=== PATIENT | male | born 1975 | race Caucasian/White ===

== ENCOUNTER 2016-07-30 00:06 | Emergency (ER) | payer OTHER ==
[~2016-07-30] VITALS: Ht 188 cm; Wt 118.4 kg
[~2016-07-30 00:06] MED LIST: LEVO100T PO; LEVO200T PO; MULT-506 PO
[2016-07-30 00:12] VITALS: TEMP 37.4; Ht 188 cm; Wt 118.4 kg
[2016-07-30] MEDS ORDERED: ONDANSETRON INJ 2 MG/ML 2 ML VIAL IV STA (00:23)
[2016-07-30] MEDS ORDERED: SODIUM CHLORIDE 0.9% 1000ML 1,000 ML IV STA ×2 (00:23→01:50)
[2016-07-30] MEDS ORDERED: HYDROCODONE/HOMATROPINE SYRUP 5MG/1.5MG 5ML UDP PO STA (00:23)
[2016-07-30] MEDS ORDERED: ACETAMINOPHEN 500 MG TAB PO STA (00:23)
[2016-07-30] MEDS ORDERED: DiphenhydrAMINE HCL 50 MG/ML VIAL IV STA (00:23)
[2016-07-30] MEDS ORDERED: KETOROLAC TROMETHAMINE 30 MG/ML VIAL IV STA (00:23)
--- NOTE | 2016-07-30 00:26 | EMERGENCY ROOM VISIT NOTE ---
History Report prepared by Derek: Roseanne Asif Under the Supervision of: Dr. Roel Mishra M.D. First contact with patient: 00:18 Chief Complaint: FEVER Stated Complaint: FEVER,BODY ACHES History of Present Illness The patient is a 41 year old male who presents to the Emergency Room with complaints of persistent body aches that began a few days ago. He currently rates his discomfort as an 8/10 in severity. The patient states that his body aches have been constant and additionally associates intermittent chest pains with coughing, fever, headache, runny nose, dizziness, vomiting, diarrhea, and intermittent abdominal cramping. He states that his body aches are worst from his knees down. He denies any sore throat. The patient denies getting a flu shot this year. He states that he has tried using fito-seltzer for his symptoms , but denies taking any Tylenol or Ibuprofen. Source of History: patient Onset: few days ago Position: other (global) Symptom Intensity: 8/10 Quality: ache, other (body aches) Timing: constant, other (persistent) Associated Symptoms: + abdominal pain, + chest pain, + cough, + diarrhea, + fevers, + headache, + vomiting, No sorethroat Note: Associated Symptoms: runny nose, dizziness Review of Systems See HPI for pertinent positives & negatives. A total of 10 systems reviewed and were otherwise negative. Past Medical & Surgical Medical Problems: (1) Cervicalgia (2) Influenza B (3) Neuralgia/Neuritis Nos (4) Right knee injury (5) Unsp Gastritis & Gastroduodenitis W/O Mentn Hemorg Family History Heart disease Social History Smoking Status: Former Smoker Alcohol Use: occasionally Drug Use: none Marital Status: Housing Status: lives with family Occupation Status: employed Current/Historical Medications Scheduled Levothyroxine Sodium (Synthroid), 100 MCG PO DAILY Levothyroxine Sodium (Synthroid), 200 MCG PO DAILY Multivitamin (Multivitamin), 1 TAB PO DAILY Allergies Coded Allergies: No Known Allergies (Unverified , 03/18/16) Physical Exam Vital Signs Date Time Temp Pulse Resp B/P Pulse Ox O2 Delivery O2 Flow Rate FiO2 07/30/16 02:34 81 18 109/60 93 07/30/16 01:54 88 16 109/60 91 Room Air 07/30/16 01:04 95 Nasal Cannula 2.0 07/30/16 00:12 37.4 107 20 139/80 99 Room Air Physical Exam GENERAL: Patient is uncomfortable appearing and in mild distress. HEENT: Rhinorrhea bilaterally with nasal congestion. No acute trauma, normocephalic atraumatic, mucous membranes moist, no scleral icterus. NECK: No stridor, no adenopathy, no meningismus, trachea is midline. LUNGS: No dyspnea. Clear to auscultation and equal bilaterally. No wheeze, no rhonchi. HEART: Tachycardic rate and rhythm. No murmurs, rubs, gallops appreciated. ABDOMEN: Soft, nontender, bowel sounds positive, no masses appreciated, no peritonitis. BACK: No midline tenderness, no CVA tenderness EXTREMITIES: Normal motion all extremities, no cyanosis, no edema. NEUROLOGIC: Alert and oriented, no acute motor or sensory deficits, no focal weakness, cranial nerves grossly intact. SKIN: No rash, no jaundice, no diaphoresis. Medical Decision & Procedures ER Provider Diagnostic Interpretation: X ray results are stated below per my interpretation: Chest: 1 view: No infiltrate, no effusion, normal cardiac border. Laboratory Results 07/30/16 00:30 Red Blood Count 4.67, Mean Corpuscular Volume 93.1, Mean Corpuscular Hemoglobin 32.3, Mean Corpuscular Hemoglobin Concent 34.7, Mean Platelet Volume 9.9, Neutrophils (%) (Auto) 85.3, Lymphocytes (%) (Auto) 4.2, Monocytes (%) (Auto) 9.1, Eosinophils (%) (Auto) 0.4, Basophils (%) (Auto) 0.4, Neutrophils # (Auto) 6.83, Lymphocytes # (Auto) 0.34, Monocytes # (Auto) 0.73, Eosinophils # (Auto) 0.03, Basophils # (Auto) 0.03 07/30/16 00:30 Test 07/30/16 00:25 07/30/16 00:30 Influenza Type A Antigen Neg for Influ A (NEG) Influenza Type B Antigen Neg for Influ B (NEG) White Blood Count 8.01 K/uL (4.8-10.8) Red Blood Count 4.67 M/uL (4.7-6.1) Hemoglobin 15.1 g/dL (14.0-18.0) Hematocrit 43.5 % (42-52) Mean Corpuscular Volume 93.1 fL (80-100) Mean Corpuscular Hemoglobin 32.3 pg (25-34) Mean Corpuscular Hemoglobin Concent 34.7 g/dl (32-36) Platelet Count 214 K/uL (130-400) Mean Platelet Volume 9.9 fL (7.4-10.4) Neutrophils (%) (Auto) 85.3 % Lymphocytes (%) (Auto) 4.2 % Monocytes (%) (Auto) 9.1 % Eosinophils (%) (Auto) 0.4 % Basophils (%) (Auto) 0.4 % Neutrophils # (Auto) 6.83 K/uL (1.4-6.5) Lymphocytes # (Auto) 0.34 K/uL (1.2-3.4) Monocytes # (Auto) 0.73 K/uL (0.11-0.59) Eosinophils # (Auto) 0.03 K/uL (0-0.5) Basophils # (Auto) 0.03 K/uL (0-0.2) RDW Standard Deviation 44.9 fL (36.4-46.3) RDW Coefficient of Variation 13.1 % (11.5-14.5) Immature Granulocyte % (Auto) 0.6 % Immature Granulocyte # (Auto) 0.05 K/uL (0.00-0.02) Anion Gap 10.0 mmol/L (3-11) Est Creatinine Clear Calc Drug Dose 120.9 ml/min Estimated GFR () 96.1 Estimated GFR (Non- 82.9 BUN/Creatinine Ratio 12.5 (10-20) Calcium Level 9.2 mg/dl (8.5-10.1) Total Bilirubin 0.3 mg/dl (0.2-1) Direct Bilirubin < 0.1 mg/dl (0-0.2) Aspartate Amino Transf (AST/SGOT) 22 U/L (15-37) Alanine Aminotransferase (ALT/SGPT) 27 U/L (12-78) Alkaline Phosphatase 86 U/L (45-117) Total Creatine Kinase 300 U/L (39-308) Creatine Kinase MB 0.7 ng/ml (0.5-3.6) Creatine Kinase MB Ratio 0.2 (0-3.0) Troponin I < 0.015 ng/ml (0-0.045) Total Protein 7.7 gm/dl (6.4-8.2) Albumin 4.3 gm/dl (3.4-5.0) Laboratory results as reviewed by me. Medications Administered Medications (Trade) Dose Ordered Sig/Gordon Route Start Time Stop Time Status Last Admin Dose Admin Sodium Chloride (Nss 1000ml) 1,000 ml @ 999 mls/hr Q1H1M STAT IV 07/30/16 00:23 07/30/16 01:23 DC 07/30/16 00:48 999 MLS/HR Ketorolac Tromethamine (Toradol Inj) 30 mg NOW STAT IV 07/30/16 00:23 07/30/16 00:25 DC 07/30/16 00:49 30 MG Ondansetron HCl (Zofran Inj) 4 mg NOW STAT IV 07/30/16 00:23 07/30/16 00:25 DC 07/30/16 00:49 4 MG Diphenhydramine HCl (Benadryl Inj) 50 mg NOW STAT IV 07/30/16 00:23 07/30/16 00:25 DC 07/30/16 00:49 50 MG Acetaminophen (Tylenol Tab) 1,000 mg NOW STAT PO 07/30/16 00:23 07/30/16 00:25 DC 07/30/16 00:49 1,000 MG Hydrocodone Bit/ Homatropine Methylb 5 ml 5 ml NOW STAT PO 07/30/16 00:23 07/30/16 00:25 DC 07/30/16 00:48 5 ML Sodium Chloride (Nss 1000ml) 1,000 ml @ 999 mls/hr Q1H1M STAT IV 07/30/16 01:50 07/30/16 02:50 DC 07/30/16 01:50 999 MLS/HR Hydrocodone Bit/ Homatropine Methylb (Hycodan Elix Homepack 5/1.5MG/ 5ML) 1 homepack UD ONCE PO 07/30/16 02:30 07/30/16 02:31 DC 07/30/16 02:32 1 HOMEPACK ECG Indication: chest pain Rate (beats per minute): 94 Rhythm: normal sinus Findings: no acute ischemic change, no ectopy ED Course 0019: The patient was evaluated in room A2. A complete history and physical exam was performed. 0023: Ordered Hycodan Syrup 5 ml PO, Tylenol Tab 1000 mg PO, Benadryl Inj 50 mg IV, Zofran Inj 4 mg IV, Toradol Inj 30 mg IV, Sodium Chloride 1000 ml @ 999 mls/ hr IV. 0146: I reevaluated the patient at this time and he is doing is feeling better, somewhat diaphoretic, and states that he feels like his fever is breaking. 0150: Ordered Sodium Chloride 1000 ml @ 999 mls/hr IV. 0224: I reevaluated the patient and he is feeling much better and requesting to go home. I discussed the exam findings with him and I discussed the treatment plan. He verbalized complete understanding and agreement. He is ready to go home. 0230: Ordered Hycodan Elix Homepack 5/1.5mg/5 ml 1 homepack PO. Medical Decision Differential: Viral, Pharyngitis, Cellulitis, Pneumonia, Influenza, Meningitis, Sepsis, Bacteremia, UTI/Pyelonephritis, Endocrine, Toxicologic, amongst other pathologies entertained. 41 yr old male with clearly URI illness likely viral as CXR clear, WBC normal and multiple viral illnesses similar in family and community. He feels vastly improved with above and is in no distress, sleeping comfortably. Mild hypoxia post benadryl/hycodan which is not surprising and his O2 trended up over an hour or so. Breathing comfortably with clear lungs bilaterally. He is in no distress, vitals improved and he feels comfortable going home. Discussed that patient is at risk of developing further illness and if worsening symptoms or other concerns, RTED for further evaluation and treatment or follow up with PCP. He and are comfortable with this plan. Impression Primary Impression: Upper respiratory infection, acute Additional Impression: Dehydration Scribe Attestation The scribe's documentation has been prepared under my direction and personally reviewed by me in its entirety. I confirm that the note above accurately reflects all work, treatment, procedures, and medical decision making performed by me. Departure Information Dispostion Home / Self-Care Referrals Primary Care Provider Forms HOME CARE DOCUMENTATION FORM, IMPORTANT VISIT INFORMATION, Work Instructions Patient Instructions A Signature Page, ED URI Viral, [facility] Additional Instructions You have received a narcotic cough medication. These medications may cause drowsiness and should not be used with other sedative medications. Do not drive , drink alcohol, perform dangerous activities, nor make important decisions after taking these medications. half-way use or inappropriate use may lead to addiction. Problem Qualifiers
[2016-07-30 00:43] LABS: BASO % 0.4 %; BASO ABS # 0.03 K/uL (0-0.2); COMPLETE YES; EOS % 0.4 %; HEMATOCRIT 43.5 % (42-52); IG% 0.6 %; LYMPH % 4.2 %; LYMPH ABS # 0.34 K/uL (1.2-3.4); MEAN CELL VOLUME 93.1 fL (80-100); MEAN CORPUSCULAR HEMOGLOBIN 32.3 pg (25-34); MEAN CORPUSCULAR HGB CONC 34.7 g/dl (32-36); MEAN PLATELET VOLUME 9.9 fL (7.4-10.4); MONO % 9.1 %; NEUT % 85.3 %; PLATELET COUNT 214 K/uL (130-400); RED BLOOD COUNT 4.67 M/uL (4.7-6.1); WHITE BLOOD COUNT 8.01 K/uL (4.8-10.8)
[2016-07-30 01:04] VITALS: O2SAT 95
[2016-07-30 01:18] LABS: ALT/SGPT 27 U/L (12-78); AST/SGOT 22 U/L (15-37); BLOOD UREA NITROGEN 14 mg/dl (7-18); BUN/CREATININE RATIO 12.5 (10-20); CALCIUM 9.2 mg/dl (8.5-10.1); CARBON DIOXIDE 25 mmol/L (21-32); CHLORIDE 103 mmol/L (98-107); GLUCOSE 129 mg/dl (70-99); POTASSIUM 3.7 mmol/L (3.5-5.1); SODIUM 138 mmol/L (136-145)
[2016-07-30 01:25] LABS: ALKALINE PHOSPHATASE 86 U/L (45-117); CKMB/CK RATIO 0.2 (0-3.0)
[2016-07-30] MEDS ORDERED: HYCODAN 60ML BOTTLE HOMEPACK PO ONE (02:30)
[2016-07-30 02:34] VITALS: BP 109/60; PULSE 81; O2SAT 93
--- NOTE | 2016-07-30 07:10 | DIAGNOSTIC IMAGING REPORT ---
CHEST ONE VIEW PORTABLE CLINICAL HISTORY: Chest pain. Cough. COMPARISON STUDY: Chest radiograph July 27, 2015. FINDINGS: No pneumothorax or pleural effusion is present. There is no evidence of pulmonary edema. Cardiomediastinal silhouette is stable. There is moderate elevation of the right hemidiaphragm. No consolidation is identified. IMPRESSION: No acute cardiopulmonary findings. Electronically signed by: Albert Schuler M.D. 07/30/2016 7:07 AM Dictated Date/Time: 07/30/2016 7:06 AM
== END 2016-07-30 02:35 | disposition home or self-care (01) ==
LOC: C.EDB 00:06 → C.EDA 02:35
DX: J06.9 Acute upper respiratory infection, unspecified (principal); E86.0 Dehydration; Z82.49 Family history of ischemic heart disease and other diseases of the circulatory system; Z87.891 Personal history of nicotine dependence

== ENCOUNTER 2018-06-24 21:31 | Inpatient (IN) ==
[~2018-06-24 21:31] MED LIST changes: -LEVO100T PO; -LEVO200T PO; -MULT-506 PO; +PATIENT'S HEIGHT AND/OR WEIGHT NEEDED STA
--- NOTE | 2018-06-24 21:43 | CT Scan Report ---
CT head/brain wo con CLINICAL HISTORY: Change in neurological status. Suspected stroke. COMPARISON STUDY: 07/16/2014 TECHNIQUE: Axial CT of the brain is performed from the vertex to the skull base. IV contrast was not administered for this examination. A dose lowering technique was utilized adhering to the principles of ALARA. CT DOSE: FINDINGS: No intra or extra-axial mass lesions are visualized. There is no CT evidence of acute cortical infarc tion. There is no evidence of midline shift. There is no acute hemorrhage. No calvarial fractures ar e visualized. There is no evidence of pathologic ventricular dilatation. There is no evidence of acute sinusitis IMPRESSION: No acute intracranial findings Electronically signed by: Omi Arana M.D. 06/24/2018 9:41 PM
[2018-06-24] MEDS ORDERED: ALTEPLASE IV STA ×2 (21:44→21:47)
[2018-06-24] MEDS ORDERED: RECOMBINANT IV STA ×2 (21:44→21:47)
[2018-06-24] MEDS ORDERED: ALTEPLASE, RECOMBINANT 81 MG in EMPTY BAG 0 ML IV STA ×2 (21:44→21:47)
[2018-06-24] MEDS ORDERED: ALTEPLASE For Stroke IV STA (21:47)
[2018-06-24] MEDS ORDERED: IOVERSOL 100ml IV PRN ×2 (21:50→21:53)
[2018-06-24 21:53] LABS: Basophils # (auto) 0.03 K/uL (0-0.2); Basophils % (auto) 0.4 %; Eosinophils # (auto) 0.17 K/uL (0-0.5); Eosinophils % (auto) 2.5 %; Hematocrit (blood only) 46.8 % (42-52); Hemoglobin 15.2 g/dL (14.0-18.0); Immature Granulocytes # (auto) 0.05 K/uL (0.00-0.02); Immature Granulocytes % (auto) 0.7 %; Lymphocytes # (auto) 2.63 K/uL (1.2-3.4); Lymphocytes % (auto) 39.4 %; Mean Corpuscular Hgb Conc 32.5 g/dL (32-36); Mean Corpuscular Volume 96.3 fL (80-100); Mean Platelet Volume 10.3 fL (7.4-10.4); Monocytes # (auto) 0.52 K/uL (0.11-0.59); Monocytes % (auto) 7.8 %; Neutrophils # (auto) 3.28 K/uL (1.4-6.5); Neutrophils % (auto) 49.2 %; Platelet Count 253 K/uL (130-400); RDW Coefficient of Variation 13.8 % (11.5-14.5); RDW Standard Deviation 49.1 fL (36.4-46.3); Red Blood Count 4.86 M/uL (4.7-6.1); White Blood Count 6.68 K/uL (4.8-10.8)
--- NOTE | 2018-06-24 22:00 | CT Scan Report ---
CT angio neck with con CLINICAL HISTORY: Left-sided weakness. Suspected stroke. COMPARISON STUDY: No previous studies for comparison. TECHNIQUE: CT angiography was performed from the aortic arch to the skull base. MIP imaging was perfo rmed. The patient was scanned in a dynamic helical fashion during intravenous administration of 90 cc of Optiray 320. A dose lowering technique was utilized adhering to the principles of ALARA. CT DOSE: 1093.36 mGy.cm Technique: CT angiogram of the carotid and vertebral arteries was obtained using intravenous contrast and 3-D reconstruction. NASCET criteria was utilized. Findings: The right carotid revealed no evidence of aneurysm and no evidence of dissection. There is no evidenc e of hemodynamic significant stenosis. The left carotid revealed no evidence of hemodynamic significant stenosis. There is no evidence of an eurysm. There is no evidence of dissection. There is no evidence of hemodynamically significant vertebral stenosis. There is no evidence of verte bral dissection. There is a nonspecific 12 mm enhancing focus within the right parotid gland. Nonemergent parotid ultr asonography is recommended in follow-up. IMPRESSION: 1. No evidence of hemodynamically significant carotid or vertebral artery stenosis. No evidence of di ssection. 2. Nonspecific 12 mm enhancing focus within the right parotid gland. Nonemergent parotid ultrasonogra phy is recommended in follow-up. Electronically signed by: Omi Arana M.D. 06/24/2018 9:57 PM
[2018-06-24 22:02] LABS: Prothrombin Time 10.1 Seconds (9.0-12.0)
[2018-06-24 22:06] LABS: iSTAT Hemoglobin 15.3 g/dl (14.0-18.0); iSTAT Ionized Calcium 1.16 mmol/l (1.12-1.32)
[2018-06-24] MEDS ORDERED: ONDANSETRON INJ 2 MG/ML 2 ML VIAL IV STA (22:06)
--- NOTE | 2018-06-24 22:06 | CT Scan Report ---
CT angio head w con CLINICAL HISTORY: Left-sided weakness. Suspected stroke. TECHNIQUE: CT angiography of the head was performed in a dynamic helical fashion during intravenous a dministration of 90 cc of Optiray 320. MIP imaging was performed. A dose lowering technique was utili zed adhering to the principles of ALARA. CT DOSE: COMPARISON STUDY: Noncontrast head CT dated 06/24/2018 FINDINGS: There are no lesion suspicious for aneurysm. There are no major intracranial branch occlusi ons. The dural venous sinuses appear patent. IMPRESSION: Normal study. Electronically signed by: Omi Arana M.D. 06/24/2018 10:04 PM
[2018-06-24 22:25] LABS: Alanine Aminotransferase 23 U/L (12-78); Albumin Level 4.3 gm/dl (3.4-5.0); Alkaline Phosphatase 100 U/L (45-117); Aspartate Aminotransferase 24 U/L (15-37); Bilirubin,Total 0.3 mg/dl (0.1-1); Blood Urea Nitrogen 15 mg/dl (7-18); Calcium 8.9 mg/dl (8.5-10.1); Carbon Dioxide 26 mmol/L (21-32); Chloride 105 mmol/L (98-107); Est GFR (Non-African American) 94.1; Glucose 104 mg/dl (70-99); Magnesium 2.2 mg/dl (1.8-2.4); Potassium 3.9 mmol/L (3.5-5.1); Sodium 139 mmol/L (136-145); Total Protein 7.9 gm/dl (6.4-8.2)
[2018-06-24 22:34] LABS: Troponin I < 0.015 ng/ml (0-0.045)
--- NOTE | 2018-06-24 22:47 | History & Physical Report ---
Date of Service June 24, 2018 Assessment & Plan (1) Acute CVA (cerebrovascular accident): Probable right MCA distribution Stroke in the young Possible hypercoagulable state Some improvement of left lower extremity weakness post TPA administration at the ER Hypothyroidism, recent outpatient TSH was noted to be elevated History PVD (venous ulcers) as per records Ongoing tobacco abuse Incidental finding of right parotid mass on CT ICU monitoring post TPA Hypercoagulable workup MRI/MRA of the brain, TTE for stroke workup Neurology consult stroke Recheck TSH Nicotine patch as needed Outpatient right parotid ultrasound for right parotid mass DVT prophylaxis Lovenox sq 24 hours after TPA administration if without bleeding Full code History of Present Illness Chief Complaint: Stroke Primary Care Provider: Dr. Nobles History obtained from patient, family, and records. Medical history significant for PVD (hx venous ulcers), hypothyroidism, ongoing tobacco abuse. Patient had just arrived home from hunting when he noted left-sided weakness, dysarthria, and left-sided facial weakness. He called out to a friend who was outside his house. Patient denies chest pain, SOB. No previous episodes in the past. Stroke alert called upon arrival at the ER. IV TPA administered at the ER. Some improvement noted in left lower extremity weakness. 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 Left ACL tear Right wrist fracture Plate removed. Tear of medial collateral ligament of right knee Surgical History History of arthroplasty of right shoulder Social History Current Living Situation: Alone Other Information That Helps Us Care for You: No Feels Safe at Home: Yes Safety Concerns: Feels Safe At This Time Smoking Status: Former smoker Smoking End Date: 2 years ago. Hx Alcohol Use: Yes Alcohol type: beer Alcohol Intake Frequency: a few times a month Hx Substance Use: No Beliefs That Will Affect Care: None Preferred Language: Macedonian Communication Ability: Effective Pipe Roller Required: No Review of Systems As per HPI, all 10 systems reviewed, all other ROS negative Physical Exam 2 Vital Signs (Past 24 Hours): Last Vital Signs Pulse 75 06/24/18 22:31 Resp 16 06/24/18 22:31 BP 129/78 06/24/18 22:31 Pulse Ox 97 06/24/18 22:31 Physical Exam: GENERAL: Slightly anxious , no respiratory distress, obese, dysarthric SKIN: Normal color, warm HEENT: [place] palpebral conjunctivae, no ptosis, facial droop left, dry buccal mucosa NECK : Supple, no tenderness CHEST : CTA, no tenderness HEART : RRR, no obvious murmurs ABDOMEN: Some distention, nontender EXTREMITIES : No LE swelling/tenderness, abrasion noted on some toes of the left foot NEUROLOGIC : Coherent, dysarthric, left facial droop, hemiparesis left Results & Data Laboratory Results Laboratory Results WBC 6.68 K/uL (4.8-10.8) 06/24/18 21:05 RBC 4.86 M/uL (4.7-6.1) 06/24/18 21:05 Hgb 15.2 g/dL (14.0-18.0) 06/24/18 21:05 POC Hgb 15.3 g/dl (14.0-18.0) 06/24/18 21:53 Hct 46.8 % (42-52) 06/24/18 21:05 POC Hct 45 % (42-52) 06/24/18 21:53 MCV 96.3 fL (80-100) 06/24/18 21:05 MCH 31.3 pg (25-34) 06/24/18 21:05 MCHC 32.5 g/dL (32-36) 06/24/18 21:05 RDW Std Deviation 49.1 fL (36.4-46.3) H 06/24/18 21:05 RDW Coeff of Gabriel 13.8 % (11.5-14.5) 06/24/18 21:05 Plt Count 253 K/uL (130-400) 06/24/18 21:05 MPV 10.3 fL (7.4-10.4) 06/24/18 21:05 Immature Gran % (Auto) 0.7 % 06/24/18 21:05 Neut % (Auto) 49.2 % 06/24/18 21:05 Lymph % (Auto) 39.4 % 06/24/18 21:05 [place] % (Auto) 7.8 % 06/24/18 21:05 Eos % (Auto) 2.5 % 06/24/18 21:05 Baso % (Auto) 0.4 % 06/24/18 21:05 Immature Gran # (Auto) 0.05 K/uL (0.00-0.02) H 06/24/18 21:05 Neut # (Auto) 3.28 K/uL (1.4-6.5) 06/24/18 21:05 Lymph # (Auto) 2.63 K/uL (1.2-3.4) 06/24/18 21:05 [place] # (Auto) 0.52 K/uL (0.11-0.59) 06/24/18 21:05 Eos # (Auto) 0.17 K/uL (0-0.5) 06/24/18 21:05 Baso # (Auto) 0.03 K/uL (0-0.2) 06/24/18 21:05 PT 10.1 Seconds (9.0-12.0) 06/24/18 21:05 INR 1.0 (0.9-1.1) 06/24/18 21:05 APTT 27.0 Seconds (21.0-31.0) 06/24/18 21:05 PTT Ratio 1.0 06/24/18 21:05 POC Sodium 140 mEq/L (135-144) 06/24/18 21:53 Sodium 139 mmol/L (136-145) 06/24/18 21:05 POC Potassium 4.4 mEq/L (3.3-5.0) 06/24/18 21:53 Potassium 3.9 mmol/L (3.5-5.1) 06/24/18 21:05 POC Chloride 102 mEq/L (101-112) 06/24/18 21:53 Chloride 105 mmol/L (98-107) 06/24/18 21:05 Carbon Dioxide 26 mmol/L (21-32) 06/24/18 21:05 POC Total CO2 25 mEq/l (24-31) 06/24/18 21:53 Anion Gap 8.0 (3-11) 06/24/18 21:05 POC Anion Gap 18.0 mmol/L (16-25) 06/24/18 21:53 POC BUN 15 mg/dl (7-18) 06/24/18 21:53 BUN 15 mg/dl (7-18) 06/24/18 21:05 Creatinine 0.98 mg/dl (0.6-1.4) 06/24/18 21:05 POC Creatinine 0.8 mg/dl (0.6-1.3) 06/24/18 21:53 Est Cr Clr Drug Dosing 134.0 ml/min 06/24/18 21:05 Est GFR ( Amer) 109.0 06/24/18 21:05 Est GFR (Non-Af Amer) 94.1 06/24/18 21:05 BUN/Creatinine Ratio 15.0 (10-20) 06/24/18 21:05 Glucose 104 mg/dl (70-99) H 06/24/18 21:05 POC Glucose 87 (70-99) 06/24/18 21:49 POC Glucose (other) 95 mg/dl (70-99) 06/24/18 21:53 Calcium 8.9 mg/dl (8.5-10.1) 06/24/18 21:05 POC Ioniz Calcium [place] 1.16 mmol/l (1.12-1.32) 06/24/18 21:53 Magnesium 2.2 mg/dl (1.8-2.4) 06/24/18 21:05 Total Bilirubin 0.3 mg/dl (0.1-1) 06/24/18 21:05 Direct Bilirubin mg/dl (0-0.2) 06/24/18 21:05 AST 24 U/L (15-37) 06/24/18 21:05 ALT 23 U/L (12-78) 06/24/18 21:05 Alkaline Phosphatase 100 U/L (45-117) 06/24/18 21:05 Troponin I < 0.015 ng/ml (0-0.045) 06/24/18 21:05 Total Protein 7.9 gm/dl (6.4-8.2) 06/24/18 21:05 Albumin 4.3 gm/dl (3.4-5.0) 06/24/18 21:05 TSH Cancelled 12/07/18 21:05 Specimen Hemolysis 06/24/18 21:05 Blood Type Cancelled 06/24/18 21:50 Antibody Screen Cancelled 06/24/18 21:[address] head no acute pathology CT neck angiogram : 1. No evidence of hemodynamically significant carotid or vertebral artery stenosis. No evidence of dissection. 2. Nonspecific 12 mm enhancing focus within the right parotid gland. Nonemergent parotid ultrasonography is recommended in follow-up. EKG as per my interpretation rate 85, NSR, no ischemia
--- NOTE | 2018-06-24 23:41 | Emergency Department Note ---
Entered by Skylar Alcocer acting as a scribe for History of Present Illness General Chief complaint: Stroke Alert Stated complaint: STROKE ALERT Source: patient Mode of arrival: ambulatory Limitations: no limitations History of Present Illness Onset (ago): hour(s) 2 Location: head Radiation: non-radiation Pain Consistency: + constant Exacerbated By: + none Associated symptoms: + headaches The patient is a 43 year old male who presents to the Emergency Room with complaints of stroke like symptoms. He was brought to the ED via EMS. EMS states his last known well time is 1900 tonight, when the patient became flaccid on his left side and had to crawl to the phone to call for help. He does not take blood thinners and EMS denies any recent head injury or trauma. The patient states that after a shower at approximately 7 to 7:30 PM tonight he developed numbness to the left side of his body. He admits to experiencing a speech slur and weakness, reporting "I am trying to talk, but I can't." He states he felt fine earlier today. The patient denies any trouble finding words. He does complain of a feeling of "tight" pain above his right eye. He denies any prior history of migraine headaches. He denies any family history of migraines. He states that he has not been having headaches and does not have one now. He denies any head injury or fever. Home Medications Home Medications Medication Instructions Recorded Confirmed Type levothyroxine 300 mcg PO DAILY 06/24/18 06/24/18 History Allergies Allergy/AdvReac Type Severity Reaction Status Date / Time No Known Allergies Allergy Unverified 06/24/18 22:38 Past Med/Surg History Medical History Pneumonia Pharyngitis Hyperthyroidism Social History Feels Safe at Home: Yes Smoking Status: Former smoker Review of Systems See HPI for pertinent positives & negatives. and A total of 10 systems reviewed and were otherwise negative Physical Exam Vital Signs Vital Signs - 24 hr 06/24/18 21:45 06/24/18 21:46 06/24/18 21:50 Sepsis Recent Fever Within 48 Hours No Sepsis Action Taken by Nursing No Action Required Pulse Rate 83 89 85 Respiratory Rate 21 Blood Pressure 150/90 H 150/90 H 155/84 H Blood Pressure Mean 110 110 107 Pulse Oximetry 95 96 96 Oxygen Delivery Method Room Air 06/24/18 21:55 06/24/18 21:56 06/24/18 22:00 Sepsis Recent Fever Within 48 Hours Sepsis Action Taken by Nursing Pulse Rate 87 87 86 Respiratory Rate Blood Pressure 137/92 129/90 Blood Pressure Mean 107 103 Pulse Oximetry 96 96 97 Oxygen Delivery Method 06/24/18 22:05 06/24/18 22:10 06/24/18 22:11 Sepsis Recent Fever Within 48 Hours Sepsis Action Taken by Nursing Pulse Rate 77 83 84 Respiratory Rate Blood Pressure 145/85 H 134/87 Blood Pressure Mean 105 102 Pulse Oximetry 96 96 96 Oxygen Delivery Method 06/24/18 22:15 06/24/18 22:20 06/24/18 22:21 Sepsis Recent Fever Within 48 Hours Sepsis Action Taken by Nursing Pulse Rate 89 85 77 Respiratory Rate Blood Pressure 147/96 H 135/86 Blood Pressure Mean 113 102 Pulse Oximetry 95 94 95 Oxygen Delivery Method 06/24/18 22:25 06/24/18 22:26 06/24/18 22:30 Sepsis Recent Fever Within 48 Hours Sepsis Action Taken by Nursing Pulse Rate 80 80 85 Respiratory Rate 15 Blood Pressure 129/74 Blood Pressure Mean 92 Pulse Oximetry 94 95 95 Oxygen Delivery Method 06/24/18 22:31 06/24/18 22:32 06/24/18 22:35 Sepsis Recent Fever Within 48 Hours Sepsis Action Taken by Nursing Pulse Rate 75 75 78 Respiratory Rate 16 Blood Pressure 129/78 Blood Pressure Mean 95 Pulse Oximetry 97 94 95 Oxygen Delivery Method 06/24/18 22:36 06/24/18 22:40 06/24/18 22:41 Sepsis Recent Fever Within 48 Hours Sepsis Action Taken by Nursing Pulse Rate 80 87 81 Respiratory Rate Blood Pressure 128/78 138/88 Blood Pressure Mean 94 104 Pulse Oximetry 95 96 97 Oxygen Delivery Method 06/24/18 22:45 06/24/18 22:46 06/24/18 22:50 Sepsis Recent Fever Within 48 Hours Sepsis Action Taken by Nursing Pulse Rate 80 84 76 Respiratory Rate Blood Pressure 130/82 Blood Pressure Mean 98 Pulse Oximetry 95 98 95 Oxygen Delivery Method 06/24/18 22:51 06/24/18 22:55 06/24/18 22:56 Sepsis Recent Fever Within 48 Hours Sepsis Action Taken by Nursing Pulse Rate 76 79 79 Respiratory Rate Blood Pressure 127/79 126/84 Blood Pressure Mean 95 98 Pulse Oximetry 95 96 97 Oxygen Delivery Method 06/24/18 23:00 06/24/18 23:01 06/24/18 23:05 Sepsis Recent Fever Within 48 Hours Sepsis Action Taken by Nursing Pulse Rate 77 79 78 Respiratory Rate Blood Pressure 122/89 126/84 Blood Pressure Mean 100 98 Pulse Oximetry 96 96 95 Oxygen Delivery Method 06/24/18 23:10 06/24/18 23:11 06/24/18 23:12 Sepsis Recent Fever Within 48 Hours Sepsis Action Taken by Nursing Pulse Rate 80 83 75 Respiratory Rate Blood Pressure 131/90 Blood Pressure Mean 103 Pulse Oximetry 98 96 96 Oxygen Delivery Method 06/24/18 23:24 06/24/18 23:26 06/24/18 23:27 Sepsis Recent Fever Within 48 Hours Sepsis Action Taken by Nursing Pulse Rate 74 75 76 Respiratory Rate 16 13 13 Blood Pressure 123/79 123/83 Blood Pressure Mean 93 96 Pulse Oximetry 95 97 95 Oxygen Delivery Method 06/24/18 23:30 Sepsis Recent Fever Within 48 Hours Sepsis Action Taken by Nursing Pulse Rate 74 Respiratory Rate 18 Blood Pressure 123/81 Blood Pressure Mean 95 Pulse Oximetry 96 Oxygen Delivery Method Constitutional: Vital signs reviewed. Eyes: Pupils are equal round reactive to light. Conjunctiva are noninjected. ENT: Pharynx is clear without erythema or exudate. Mucous membranes are moist. Neck supple without meningeal signs. Respiratory: Clear to auscultation bilaterally. Breath sounds are equal bilaterally. Cardiovascular: Regular rate and rhythm. No rubs or gallops. GI: Soft, nondistended and nontender. Bowel sounds are present. Musculoskeletal: No peripheral edema. No lower extremity tenderness. Integumentary: No cyanosis. Neurological: The patient is awake and alert. Cranial nerves II-XII are intact except left sided facial droop, sparing the forehead. Speech is slurred. Patient is able to wiggle great toe about 1 cm. Left arm can be kept up against gravity. Motor is 5 out of 5 on the right side. Sensation appears to be intact throughout the extremities. Psychiatric: Anxious affect. Course 2118: I discussed the patients case with Dr. Rodriguez, [facility] Stroke [facility]. He believes the patient is a TPA candidate and will further evaluate the patient. 2130: Past medical records reviewed. The patient was evaluated in room B1, and a complete history and physical examination were performed. 2144: I spoke with patient and his family. I discussed his CT scan results and the risks associated with TPA with both the patient and his family. His family states he has been having headaches throughout the past 1 week. 0: I asked if the patient if he has been having headaches for the past 1 week and he denies any recent headaches. 2199: Dr. Rodriguez has evaluated the patient and recommends IV TPA. The patient has consented and it is running right now. 2210: The patient seems to be moving his leg a little better now. He still cannot move it against gravity. The Head CT was negative. I will contact the hospital medicine team. 2: I discussed the patients case with Aamir Chew [facility]ist. The patient will be further evaluated. Consultations Consultation #1: I discussed the patients case with Dr. Rodriguez, [facility] Stroke Neurology. He believes the patient is a TPA candidate and will further evaluate the patient. Time: 21:19 Consultation #2: I discussed the patients case with Aamir Chew [facility]. The patient will be further evaluated. Time: 22:12 Administered Medications Ioversol (Optiray 320 100ml) 90 ml IV ONCE PRN PRN Reason: Interaction Checking Stop: 06/28/18 21:52 Last Admin: 06/24/18 21:53 Dose: 90 ml Discontinued Medications Alteplase, Recombinant (Activase) 1 ea IV NOW STA; Protocol Stop: 06/24/18 21:48 Last Admin: 06/24/18 22:24 Dose: Not Given Alteplase, Recombinant 81 mg/ (EMPTY BAG) 81 mls @ 81 mls/hr IV ONCE STA Stop: 06/24/18 21:45 Last Infusion: 06/24/18 22:59 Dose: Admin: 06/24/18 22:01 Dose: 81 mls/hr Alteplase, Recombinant 9 mg/ (Syringe) 9 mls @ 9 mls/min IV ONCE STA Stop: 06/24/18 21:45 Last Admin: 06/24/18 21:58 Dose: 9 mls/min Miscellaneous (Patient's Height And/Or Weight Needed) 1 ea N/A NOW STA Stop: 06/24/18 21:31 Last Admin: 06/24/18 22:24 Dose: Not Given Ondansetron HCl (Zofran) 4 mg IV NOW STA Stop: 06/24/18 22:07 Last Admin: 06/24/18 22:11 Dose: 4 mg Medical Decision Making Differential Diagnosis The differential diagnoses considered include acute CVA, ICH, intracranial mass , complex migraine and aneurysm. Medical Records Attestation: I reviewed the patient's medical records. Home Medications Current Medication List: was personally reviewed by me Laboratory Data Attestation: I reviewed the patient's lab results. Result diagrams: 06/24/18 21:05 06/24/18 21:05 Lab Results 06/24/18 06/24/18 06/24/18 Range/Units 21:05 21:05 21:05 WBC 6.68 (4.8-10.8) K/uL RBC 4.86 (4.7-6.1) M/uL Hgb 15.2 (14.0-18.0) g/dL POC Hgb (14.0-18.0) g/dl Hct 46.8 (42-52) % POC Hct (42-52) % MCV 96.3 (80-100) fL MCH 31.3 (25-34) pg MCHC 32.5 (32-36) g/dL RDW Std Deviation 49.1 H (36.4-46.3) fL RDW Coeff of Gabriel 13.8 (11.5-14.5) % Plt Count 253 (130-400) K/uL MPV 10.3 (7.4-10.4) fL Immature Gran % (Auto) 0.7 % Neut % (Auto) 49.2 % Lymph % (Auto) 39.4 % [place] % (Auto) 7.8 % Eos % (Auto) 2.5 % Baso % (Auto) 0.4 % Immature Gran # (Auto) 0.05 H (0.00-0.02) K/uL Neut # (Auto) 3.28 (1.4-6.5) K/uL Lymph # (Auto) 2.63 (1.2-3.4) K/uL [place] # (Auto) 0.52 (0.11-0.59) K/uL Eos # (Auto) 0.17 (0-0.5) K/uL Baso # (Auto) 0.03 (0-0.2) K/uL PT 10.1 (9.0-12.0) Seconds INR 1.0 (0.9-1.1) APTT 27.0 (21.0-31.0) Seconds PTT Ratio 1.0 POC Sodium (135-144) mEq/L Sodium 139 (136-145) mmol/L POC Potassium (3.3-5.0) mEq/L Potassium 3.9 (3.5-5.1) mmol/L POC Chloride (101-112) mEq/L Chloride 105 (98-107) mmol/L Carbon Dioxide 26 (21-32) mmol/L POC Total CO2 (24-31) mEq/l Anion Gap 8.0 (3-11) POC Anion Gap (16-25) mmol/L POC BUN (7-18) mg/dl BUN 15 (7-18) mg/dl Creatinine 0.98 (0.6-1.4) mg/dl POC Creatinine (0.6-1.3) mg/dl Est Cr Clr Drug Dosing 134.0 ml/min Est GFR ( Amer) 109.0 Est GFR (Non-Af Amer) 94.1 BUN/Creatinine Ratio 15.0 (10-20) Glucose 104 H (70-99) mg/dl POC Glucose (70-99) POC Glucose (other) (70-99) mg/dl Calcium 8.9 (8.5-10.1) mg/dl POC Ioniz Calcium Feliciano (1.12-1.32) mmol/l Magnesium 2.2 (1.8-2.4) mg/dl Total Bilirubin 0.3 (0.1-1) mg/dl Direct Bilirubin (0-0.2) mg/dl AST 24 (15-37) U/L ALT 23 (12-78) U/L Alkaline Phosphatase 100 (45-117) U/L Troponin I < 0.015 (0-0.045) ng/ml Total Protein 7.9 (6.4-8.2) gm/dl Albumin 4.3 (3.4-5.0) gm/dl TSH 20.300 H (0.300-4.500) uIu/ml Specimen Hemolysis Blood Type Antibody Screen 06/24/18 06/24/18 06/24/18 Range/Units 21:05 21:49 21:50 WBC (4.8-10.8) K/uL RBC (4.7-6.1) M/uL Hgb (14.0-18.0) g/dL POC Hgb (14.0-18.0) g/dl Hct (42-52) % POC Hct (42-52) % MCV (80-100) fL MCH (25-34) pg MCHC (32-36) g/dL RDW Std Deviation (36.4-46.3) fL RDW Coeff of Gabriel (11.5-14.5) % Plt Count (130-400) K/uL MPV (7.4-10.4) fL Immature Gran % (Auto) % Neut % (Auto) % Lymph % (Auto) % [place] % (Auto) % Eos % (Auto) % Baso % (Auto) % Immature Gran # (Auto) (0.00-0.02) K/uL Neut # (Auto) (1.4-6.5) K/uL Lymph # (Auto) (1.2-3.4) K/uL [place] # (Auto) (0.11-0.59) K/uL Eos # (Auto) (0-0.5) K/uL Baso # (Auto) (0-0.2) K/uL PT (9.0-12.0) Seconds INR (0.9-1.1) APTT (21.0-31.0) Seconds PTT Ratio POC Sodium (135-144) mEq/L Sodium (136-145) mmol/L POC Potassium (3.3-5.0) mEq/L Potassium (3.5-5.1) mmol/L POC Chloride (101-112) mEq/L Chloride (98-107) mmol/L Carbon Dioxide (21-32) mmol/L POC Total CO2 (24-31) mEq/l Anion Gap (3-11) POC Anion Gap (16-25) mmol/L POC BUN (7-18) mg/dl BUN (7-18) mg/dl Creatinine (0.6-1.4) mg/dl POC Creatinine (0.6-1.3) mg/dl Est Cr Clr Drug Dosing ml/min Est GFR ( Amer) Est GFR (Non-Af Amer) BUN/Creatinine Ratio (10-20) Glucose (70-99) mg/dl POC Glucose 87 (70-99) POC Glucose (other) (70-99) mg/dl Calcium (8.5-10.1) mg/dl POC Ioniz Calcium Fel[place] (1.12-1.32) mmol/l Magnesium (1.8-2.4) mg/dl Total Bilirubin (0.1-1) mg/dl Direct Bilirubin (0-0.2) mg/dl AST (15-37) U/L ALT (12-78) U/L Alkaline Phosphatase (45-117) U/L Troponin I (0-0.045) ng/ml Total Protein (6.4-8.2) gm/dl Albumin (3.4-5.0) gm/dl TSH Cancelled (0.300-4.500) uIu/ml Specimen Hemolysis Blood Type Cancelled Antibody Screen Cancelled 06/24/18 Range/Units 21:53 WBC (4.8-10.8) K/uL RBC (4.7-6.1) M/uL Hgb (14.0-18.0) g/dL POC Hgb 15.3 (14.0-18.0) g/dl Hct (42-52) % POC Hct 45 (42-52) % MCV (80-100) fL MCH (25-34) pg MCHC (32-36) g/dL RDW Std Deviation (36.4-46.3) fL RDW Coeff of Gabriel (11.5-14.5) % Plt Count (130-400) K/uL MPV (7.4-10.4) fL Immature Gran % (Auto) % Neut % (Auto) % Lymph % (Auto) % [place] % (Auto) % Eos % (Auto) % Baso % (Auto) % Immature Gran # (Auto) (0.00-0.02) K/uL Neut # (Auto) (1.4-6.5) K/uL Lymph # (Auto) (1.2-3.4) K/uL [place] # (Auto) (0.11-0.59) K/uL Eos # (Auto) (0-0.5) K/uL Baso # (Auto) (0-0.2) K/uL PT (9.0-12.0) Seconds INR (0.9-1.1) APTT (21.0-31.0) Seconds PTT Ratio POC Sodium 140 (135-144) mEq/L Sodium (136-145) mmol/L POC Potassium 4.4 (3.3-5.0) mEq/L Potassium (3.5-5.1) mmol/L POC Chloride 102 (101-112) mEq/L Chloride (98-107) mmol/L Carbon Dioxide (21-32) mmol/L POC Total CO2 25 (24-31) mEq/l Anion Gap (3-11) POC Anion Gap 18.0 (16-25) mmol/L POC BUN 15 (7-18) mg/dl BUN (7-18) mg/dl Creatinine (0.6-1.4) mg/dl POC Creatinine 0.8 (0.6-1.3) mg/dl Est Cr Clr Drug Dosing ml/min Est GFR ( Amer) Est GFR (Non-Af Amer) BUN/Creatinine Ratio (10-20) Glucose (70-99) mg/dl POC Glucose (70-99) POC Glucose (other) 95 (70-99) mg/dl Calcium (8.5-10.1) mg/dl POC Ioniz Calcium Feliciano 1.16 (1.12-1.32) mmol/l Magnesium (1.8-2.4) mg/dl Total Bilirubin (0.1-1) mg/dl Direct Bilirubin (0-0.2) mg/dl AST (15-37) U/L ALT (12-78) U/L Alkaline Phosphatase (45-117) U/L Troponin I (0-0.045) ng/ml Total Protein (6.4-8.2) gm/dl Albumin (3.4-5.0) gm/dl TSH (0.300-4.500) uIu/ml Specimen Hemolysis Blood Type Antibody Screen Imaging Data Radiologist's Impression: Radiology results as stated below per my review and the radiologist's interpretation: CT angio neck with con CLINICAL HISTORY: Left-sided weakness. Suspected stroke. COMPARISON STUDY: No previous studies for comparison. TECHNIQUE: CT angiography was performed from the aortic arch to the skull base. MIP imaging was performed. The patient was scanned in a dynamic helical fashion during intravenous administration of 90 cc of Optiray 320. A dose lowering technique was utilized adhering to the principles of ALARA. CT DOSE: 1093.36 mGy.cm Technique: CT angiogram of the carotid and vertebral arteries was obtained using intravenous contrast and 3-D reconstruction. NASCET criteria was utilized. Findings: The right carotid revealed no evidence of aneurysm and no evidence of dissection. There is no evidence of hemodynamic significant stenosis. The left carotid revealed no evidence of hemodynamic significant stenosis. There is no evidence of aneurysm. There is no evidence of dissection. There is no evidence of hemodynamically significant vertebral stenosis. There is no evidence of vertebral dissection. There is a nonspecific 12 mm enhancing focus within the right parotid gland. Nonemergent parotid ultrasonography is recommended in follow-up. IMPRESSION: 1. No evidence of hemodynamically significant carotid or vertebral artery stenosis. No evidence of dissection. 2. Nonspecific 12 mm enhancing focus within the right parotid gland. Nonemergent parotid ultrasonography is recommended in follow-up. Electronically signed by: Omi Arana M.D. 06/24/2018 9:[address] angio head w con CLINICAL HISTORY: Left-sided weakness. Suspected stroke. TECHNIQUE: CT angiography of the head was performed in a dynamic helical fashion during intravenous administration of 90 cc of Optiray 320. MIP imaging was performed. A dose lowering technique was utilized adhering to the principles of ALARA. CT DOSE: COMPARISON STUDY: Noncontrast head CT dated 06/24/2018 FINDINGS: There are no lesion suspicious for aneurysm. There are no major intracranial branch occlusions. The dural venous sinuses appear patent. IMPRESSION: Normal study. Electronically signed by: Omi Arana M.D. 06/24/2018 10:[address] head/brain wo con CLINICAL HISTORY: Change in neurological status. Suspected stroke. COMPARISON STUDY: 07/16/2014 TECHNIQUE: Axial CT of the brain is performed from the vertex to the skull base. IV contrast was not administered for this examination. A dose lowering technique was utilized adhering to the principles of ALARA. CT DOSE: FINDINGS: No intra or extra-axial mass lesions are visualized. There is no CT evidence of acute cortical infarction. There is no evidence of midline shift. There is no acute hemorrhage. No calvarial fractures are visualized. There is no evidence of pathologic ventricular dilatation. There is no evidence of acute sinusitis IMPRESSION: No acute intracranial findings Electronically signed by: Omi Arana M.D. 06/24/2018 9:41 PM ECG Data Attestation: I personally reviewed and interpreted this ECG as follows: Indication: weakness Rate (beats per minute): 84 Rhythm: normal sinus Findings: + other (J-point elevation anteriorly); no PVC MDM Narrative I did perform a limited focused review of portions of the patient's old chart on the electronic medical record. The patient has had no recent pertinent visits to this hospital. The patient had a right GSV RFA for venous insufficiency by Cardiology in November of 2015, performed by Dr. Bragg. I did provide prehospital medical command for the patient. He is presenting with left-sided weakness and numbness with dysarthria. I did have them call an immediate stroke alert. I then notified the neurologist at [facility] who agreed that the patient would likely be a IV TPA candidate should his CT be negative. I did immediately evaluate the patient on arrival as noted above. I did escort him to CT scan. I did order a CT of the head and CT Angio of the head and neck. I did review the images myself as well as the radiology report as described above. There is no acute abnormality. The patient was placed on a continuous cardiac rehabilitation program director. His blood pressure was closely monitored. The [facility] neurologist did evaluate the patient over telemedicine. He agreed that the patient should receive IV TPA. I did review risks and benefits with the patient as well as his family. He did consent to IV TPA and it was initiated immediately. I did order and personally review the patient's 12-lead EKG as described above. I did order and review the patient's blood work as noted in the electronic medical record. Labs are unremarkable. He does have an elevated TSH but he is on thyroxine. On reassessment he does appear to have some very slight improvement of his leg strength. I did discuss the case with the hospitalist and case management coordinator. Impression & Plan Acute cerebrovascular accident (CVA) Critical Care Time I have personally spent greater than 71 minutes of critical care time in the direct management of this patient. This includes bedside care, interpretation of diagnostic studies, and testing, discussion with consultants, patient, and family members, and other required patient management activities. This 71 minutes is in excess of all separately billable procedures. Critical Care Time: Yes Total Critical Care Time: 71 Discharge Plan Visit Data Chief Complaint: Stroke Alert Stated Complaint: STROKE ALERT ED Provider: Glenn Simms Discharge Problem: Acute cerebrovascular accident (CVA) Patient Disposition: Being Evaluated by Hospitalist Prescriptions Prescriptions: No Action levothyroxine 300 mcg tablet 300 mcg PO DAILY RF: 0 The scribe's documentation has been prepared under my direction and personally reviewed by me in its entirety. I confirm that the note above accurately reflects all work, treatment, procedures, and medical decision making performed by me.
[2018-06-24] MEDS ORDERED: LORazepam 0.25 MG/0.5 ML VIAL IV PRN (23:57)
[2018-06-24] MEDS ORDERED: PROCHLORPERAZINE 5 MG in SYRINGE 4 ML IV PRN (23:57)
[2018-06-24] MEDS ORDERED: MoRPHine SULFATE 4 MG/ML 1 ML CARP\\VIAL IV PRN (23:57)
[2018-06-24] MEDS ORDERED: ICU PROTOCOL FOR HYPERGLYCEMIA PRN (23:57)
--- NOTE | 2018-06-25 00:08 | Critical Care Consultation ---
Date of Consultation June 25, 2018 Assessment & Plan (1) Admitted to intensive care unit: Reason Critically Ill: 43-year-old male with acute CVA and LEFT-sided deficits status post TPA administration. NEURO - * CAM ICU: NEGATIVE * Acute CVA with LEFT-sided weakness: * Improvement in strength and range of motion of the LEFT upper and lower extremities noted. * Continue with day 1 stroke protocol. * Initially received CT repeat study for complaints of headache. * Tylenol for pain. * Neurochecks per protocol. * A.m. echo for PFO evaluation. * Agree with coagulation studies, however, would wait as he is recently status post TPA administration which may certainly alter results. CARDIAC/VASCULAR - * No history of cardiac disease. * A.m. echo ordered. * EKG: Normal sinus rhythm with sinus arrhythmia at a rate of [address] or T wave changes noted. QTC 432 ms * Monitor on telemetry. RESPIRATORY - * No history of pulmonary disease. * Monitor pulse oximetry. GI/NUTRITION - * N.p.o. pending swallow study. RENAL/LYTES - * No acute electrolyte derangements at this point. - * No concerns at this time. ENDO - * No history of diabetes. * BSGs per unit protocol. ISS --> gtt per unit policy. * Hyperthyroidism status post radioiodine ablation of the thyroid: * Check T4. * Continue levothyroxine. HEME - * Stable H&H. * Monitor for bleeding status post TPA administration. ID - * No concerns for infection at this time. LINES/IV ACCESS - * PIVs x2 DVT PROPHYLAXIS - * Will hold on chemoprophylaxis secondary to TPA administration. * SCDs I have personally spent 35 minutes of critical care time in the direct management of this patient. This is a life/limb threatening event. This includes time spent evaluating patient, direct bedside care, chart review, placing orders, interpretation of diagnostic studies, discussion with consultants, patient, and family members, as well as other required patient management activities. This time is exclusive of all separately billable procedures, and teaching time and separate from and in addition to any other critical care service time. Thank you for allowing us to participate in the care of this patient. Please refer to my attending physician's documentation for any further recommendations. (2) Acute cerebrovascular accident (CVA): (3) Hyperthyroidism: (4) Left-sided weakness: Supervising Physician Co-Signing Physician Notes Seen and examined today. Case discussed on rounds. Neurological status is stable. Meds well tolerated. Will require another day in the ICU with appropriate monitoring. Acute inpatient rehab will be required. History of Present Illness Attending Physician: Jose Daniel Buck MD Patient is a 43-year-old male with a significant past medical history of hyperthyroidism status post thyroid radionuclear iodine ablation who is dependent on levothyroxine. Apparently, earlier this evening, the patient reports that he was drinking a soda and noticed that he could not move his LEFT upper extremity. He noticed weakness to the LEFT lower extremity as well. The patient did have to essentially crawl to the phone where he contacted EMS. On arrival in the emergency department, the patient was noted to have flaccid paralysis with LEFT-sided facial droop as well. He underwent emergent TPA administration at the direction of the tele-stroke program. He has shown improvement in strength and mobility of the LEFT upper extremity since arrival. Patient was noted to have a headache shortly after administration of TPA. He had a repeat CT which demonstrated no acute findings. He does report a history of occasional headaches and reports this feels similar. This is not the worst headache of his life. Patient presents and his only complaint at this point is frontal headache. He denies any current dizziness, lightheadedness, blurry vision, double vision, chest pain, palpitations, shortness of breath, nausea, or vomiting. There is no family history of blood clots or bleeding disease. There is a significant past medical history of coronary artery disease as the patient's father had a heart attack in his 40s. Patient has never had an echocardiogram and is uncertain as to any underlying PFO or other cardiac structural abnormalities. There is been no recent long distance travel. He denies any recent illicit substance use. On my assessment in the ICU, the patient is complaining of some twitching to the LEFT upper extremity. He reports increasing strength and range of motion, however. Allergies Allergy/AdvReac Type Severity Reaction Status Date / Time No Known Allergies Allergy Unverified 06/24/18 22:38 Home Medications Home Medications Medication Instructions Recorded Confirmed Type levothyroxine 300 mcg PO DAILY 06/24/18 06/24/18 History Patient History Medical History Pneumonia Pharyngitis Hyperthyroidism H/O Graves' disease Post treatment with radiation. Left ACL tear Right wrist fracture Plate removed. Tear of medial collateral ligament of right knee Surgical History History of arthroplasty of right shoulder Social History Current Living Situation: Alone Other Information That Helps Us Care for You: No Feels Safe at Home: Yes Safety Concerns: Feels Safe At This Time Smoking Status: Former smoker Smoking End Date: 2 years ago. Hx Alcohol Use: Yes Alcohol type: beer Alcohol Intake Frequency: a few times a month Hx Substance Use: No Beliefs That Will Affect Care: None Preferred Language: Maltese Communication Ability: Effective Shop Girl Required: No Review of Systems A complete 10 point review of systems was reviewed with the patient with pertinent positives and negatives as per history of present illness. All else were negative. Physical Exam 2 Vital Signs (Past 24 Hours): Last Vital Signs Pulse 74 06/24/18 23:30 Resp 18 06/24/18 23:30 BP 123/81 06/24/18 23:30 Pulse Ox 96 06/24/18 23:30 Physical Exam: VITAL SIGNS - Vital signs and nursing notes were reviewed. GENERAL - 43-year-old male appearing his stated age who is in no acute distress. Communicates well with provider and answers questions appropriately. HEAD - Normocephalic, Atraumatic. No Oconnor's Sign or Raccoon's Eyes. No depressed skull fractures palpable. EYES - PERRL with EOMI bilaterally. Sclera anicteric. Palpebral conjunctiva pink and moist with no injection noted. EARS - No deformities of external structures noted on gross examination bilaterally. NOSE - Midline and without cyanosis. No epistaxis or purulent drainage noted. Septum midline without deviation or septal hematoma noted. MOUTH/OROPHARYNX - Without perioral cyanosis. Buccal mucosa pink and moist and without leukoplakia. Tongue midline with equal elevation of palate bilaterally. No tonsillar hypertrophy, erythema, or exudates noted. Good dentition noted. NECK - Neck with FROM. Supple to palpation. No lymphadenopathy noted. No nuchal rigidity. LUNGS - Chest wall symmetric without accessory muscle use, intercostals retractions, or central cyanosis. Normal vesicular breath sounds CTA B/L. No wheezes, rales, or rhonchi appreciated. CARDIAC - RRR with S1/S2. No murmur, rubs, or gallops appreciated. ABDOMEN - Abdominal contour flat without pulsations or visible masses. BS normoactive all four quadrants. No tenderness, palpable masses, hepatosplenomegaly, or ascites noted. EXTREMITIES - No pretibial edema present. +3/5 radial and dorsalis pedis pulses palpated throughout. Occasional fasciculation of the LEFT upper extremity appreciated. +4/5 LEFT versus right upper and lower extremities appreciated. NEUROLOGIC - Cranial nerves II through XII grossly intact. Sensory intact to light touch throughout. Patellar reflexes +2/4,. Patient able to perform rapid alternating movements appropriately. Negative Pronator Drift. PSYCH - A&Ox3 and cooperates fully with examiner. Pt is very pleasant and interacts well with examiner.
[2018-06-25 00:43] LABS: T4 Free Thyroxine 1.05 ng/dl (0.8-1.6)
[2018-06-25 00:49] LABS: Bacteria Urine Automated Negative (Negative); Bilirubin Urine Negative (Negative); Cast Urine Automated 0 /lpf (0-5); Color Urine Yellow; Epithelial Cell Urine Auto 0-5 /lpf (0-5); Glucose Urine UA Negative (Negative); Ketones Urine Negative (Negative); Leukocyte Esterase Urine Negative (Negative); Nitrite Urine Negative (Negative); Protein Urine Negative (Negative); Specific Gravity Urine 1.035 (1.000-1.030); Urobilinogen Urine Negative (Negative); WBC Urine Automated 0 /hpf (0-5)
[2018-06-25 01:03] LABS: Appearance Urine Clear (Clear)
[2018-06-25 01:06] LABS: Lyme Ab IgG w/WB Rflx Negative (Negative); Lyme Ab IgM w/WB Rflx Negative (Negative)
[2018-06-25 01:23] LABS: Amphetamines+Metham, Urine Neg (Neg); Barbiturates, Urine Neg (Neg); Benzodiazepine, Urine Neg (Neg); Cocaine, Urine Neg (Neg); MDMA (Ecstacy), Urine Neg (Neg); Methadone, Urine Neg (Neg); Opiate, Urine Neg (Neg); Phencyclidine, Urine Neg (Neg)
[2018-06-25] MEDS ORDERED: PHARMACIST DISCHARGE MED REC CONSULT PRN (01:49)
[2018-06-25] MEDS: ACETAMINOPHEN 650 MG/65 ML VIAL IV PRN ×2 (01:54→18:32)
[2018-06-25] MEDS: SODIUM CHLORIDE 0.9% 1000ML 1,000 ML IV SCH ×2 (02:05→17:29)
[2018-06-25 04:55] LABS: Basophils # (auto) 0.06 K/uL (0-0.2); Eosinophils % (auto) 1.7 %; Hematocrit (blood only) 42.1 % (42-52); Hemoglobin 13.9 g/dL (14.0-18.0); Immature Granulocytes # (auto) 0.02 K/uL (0.00-0.02); Immature Granulocytes % (auto) 0.3 %; Lymphocytes % (auto) 36.7 %; Mean Corpuscular Volume 95.2 fL (80-100); Mean Platelet Volume 9.8 fL (7.4-10.4); Monocytes # (auto) 0.49 K/uL (0.11-0.59); Monocytes % (auto) 8.2 %; Neutrophils # (auto) 3.12 K/uL (1.4-6.5); Neutrophils % (auto) 52.1 %; Platelet Count 230 K/uL (130-400); RDW Coefficient of Variation 13.7 % (11.5-14.5); Red Blood Count 4.42 M/uL (4.7-6.1); White Blood Count 5.99 K/uL (4.8-10.8)
[2018-06-25 05:15] LABS: BUN Creatinine Ratio 15.4 (10-20); Blood Urea Nitrogen 12 mg/dl (7-18); Calcium 8.4 mg/dl (8.5-10.1); Carbon Dioxide 26 mmol/L (21-32); Chloride 107 mmol/L (98-107); Creatinine Clr Calc Pharmacy 162.7 ml/min; Est GFR (African American) 126.2; Est GFR (Non-African American) 108.9; Glucose 103 mg/dl (70-99); Magnesium 2.2 mg/dl (1.8-2.4); Potassium 3.9 mmol/L (3.5-5.1); Sodium 139 mmol/L (136-145)
[2018-06-25 05:20] LABS: Chol HDL Ratio 4; Cholesterol 170 mg/dl (0-200); HDL Cholesterol 40 mg/dl; LDL Cholesterol Calculated 116 mg/dl; Phosphorus 3.3 mg/dl (2.5-4.9); Triglycerides 72 mg/dl (0-150); Troponin I < 0.015 ng/ml (0-0.045); VLDL Cholesterol 14 mg/dl
--- NOTE | 2018-06-25 05:42 | CT Scan Report ---
CT head/brain wo con CT DOSE: 537.48 mGy.cm HISTORY: Mental status change braun TECHNIQUE: Multiaxial CT images of the head were performed without the use of intravenous contrast. A dose lowering technique was utilized adhering to the principles of ALARA. Comparison: 06/24/2018 Findings: The paranasal sinuses and mastoid air cells are clear. The calvarium and skull base are int act. The ventricles and sulci are within normal limits. There is no mass, hematoma, midline shift, or acute infarct. Impression: No acute intracranial abnormality. No change from the prior study. The above report was generated using voice recognition software. It may contain grammatical, syntax or spelling errors. Electronically signed by: Rubén Stone M.D. 06/25/2018 5:40 AM
[2018-06-25] MEDS ORDERED: INFLUENZA ADMINISTRATION CHARGE ONE (06:00)
[2018-06-25] MEDS ORDERED: INFLUENZA VIRUS QUAD VACCINE 0.5 ML SYR IM ONE (06:00)
[2018-06-25] MEDS ORDERED: LEVOTHYROXINE SODIUM 100 MCG TABLET PO SCH (06:30)
[2018-06-25 08:40] LABS: Estimated Average Glucose 108 mg/dl
[2018-06-25] MEDS ORDERED: IBUPROFEN 200 MG/10 ML UDC PO STA (08:46)
[2018-06-25] MEDS: LEVOTHYROXINE SODIUM IV SCH (09:19)
--- NOTE | 2018-06-25 09:37 | Ultrasound Report ---
US venous doppler LE BI HISTORY: Pain. Edema. stroke, known venous insuff, rle larger than left COMPARISON STUDY: None. FINDINGS: There is normal compressibility, flow, and augmentation within the bilateral lower extremit y deep venous systems. IMPRESSION: No DVT within the right or left lower extremity. The above report was generated using voice recognition software. It may contain grammatical, syntax or spelling errors. Electronically signed by: Rubén Stone M.D. 06/25/2018 9:35 AM
--- NOTE | 2018-06-25 10:29 | Progress Note ---
DATE: 06/25/2018 HISTORY OF PRESENT ILLNESS: A 43-year-old right-handed male referred for evaluation of stroke. He has a known history of venous insufficiency and hypothyroidism. He was in his usual state of health, went hunting yesterday, shot a dove and dragged the dove back through the [place], went home, and while showering, noticed left-sided weakness, arm and leg. Left-sided numbness and change in speech. At about the same time, he noticed a right-sided headache which was mildly throbbing. He noted no change in his vision. He was brought into the hospital and met the appropriate time frame and was given TPA. A noncontrast CT of the head was unremarkable. CTA of the head and neck showed no large vessel occlusion. Followup CT of the head was also unchanged. The patient notes he has been well. He has not had any head or neck injury, chiropractic manipulation of the neck, medical or dental procedures. He has not been recently ill, has not been on any new medications, is not using any [id number] medications. He has no history of rheumatic fever or murmur. He has no personal history of DVT, PE. As a child, he had frequent epistaxis. He does occasionally note that he gets short of breath and occasionally has palpitations. He rarely has throbbing headaches, but has never had associated neurologic symptoms with them. PAST MEDICAL HISTORY: Notable for hypothyroidism and venous insufficiency. SURGICAL HISTORY: Orthopedic surgery. SOCIAL HISTORY: Stopped smoking 2 years ago. Rarely drinks alcohol. No drug use. Lives by himself. ALLERGIES: None. HOME MEDICATIONS: Thyroid replacement. FAMILY HISTORY: Father had early coronary artery disease and at 62. Mother has thyroid disease. Uncles on the father's side also had coronary artery disease. Siblings are well. No children. There is no family history of early stroke or DVT. No family history of epistaxis. His electrocardiogram on admission is reviewed by Dr. Simms, rate 84, normal sinus, J-point elevation. OBJECTIVE: VITAL SIGNS: Temperature 36.9, 60, respirations 9-12, blood pressure 106/65, blood pressure on admission was 92/57. GENERAL: The patient does note since admission he has had random twitching of the left arm, left leg which lasted a few seconds and resolves. The face is not involved. On exam, the patient is awake and alert. His speech is dysarthric. He is oriented x3. There is no right/left confusion, naming difficulty. There is no finger anomia and no dyscalculia. There is no neglect. HEENT: Pupils are equal, round and reactive to light. The optic nerves unremarkable. Normal reese and motility. No visual extinction. There is mild flattening of left nasolabial fold. Mild dysarthric speech. Tongue is midline. Gag is reduced bilaterally. There is normal facial sensation. NEUROLOGICAL: Right-sided strength is full. Left-sided strength is about 4 proximally. The left shoulder is about 3+. The left quad is probably about 4+. Tone is normal. EXTREMITIES: There is decreased temperature in the left lower extremity. Otherwise, sensation is intact to light touch and temperature and vibration. [id number]-mt-[id number] is mildly clumsy related to weakness. Heel to salazar similarly on the left. Gait was not tested. CARDIOVASCULAR: No carotid bruits. No heart murmurs. VASCULAR: Radial pulses are palpably symmetric. I do not see any periungual vascular malformations. The right lower extremity has some venous stasis changes, it is mildly larger than the left, but not tender. Peripheral pulses are intact. I do not appreciate any embolic phenomenon in the nails. IMPRESSION: This patient appears to have a probably deep white matter infarct in the right hemisphere given the absence of neglect, visual field abnormality or abnormal graphesthesia. PLAN: 1. The patient is at baseline nonhypertensive. If his blood pressure is dropping below 100/60, I would consider using normal saline to raise his blood pressure somewhat. I do not think that reflects a disorder related to his stroke. 2. MRI of the brain. 3. Venous Doppler of the lower extremities. 4. Echo with bubble study will likely need a transesophageal echo. 5. Hypercoagulable state. 6. EEG to rule out simple partial seizures. 7. Statin use resumption. Start antiplatelet therapy after the appropriate timeframe. Appropriate OT, PT and speech therapy. We will follow.
[2018-06-25] MEDS ORDERED: SODIUM CHLORIDE 0.9% 1000ML 500 ML IV ONE (11:13)
--- NOTE | 2018-06-25 11:36 | Procedure Note ---
EEG Procedure Note Date of Service June 25, 2018 Start / End Times Start Time: 10:26 AM End Time: 10:46 AM Referring Physician Ynes Olguin History This is a 43-year-old male who presented with strokelike symptoms and twitching of the left arm and leg. EEG for further evaluation of possible seizure etiology. Home Medication List Home Medications Medication Instructions Recorded Confirmed Type levothyroxine 300 mcg PO DAILY 06/24/18 06/24/18 History Inpatient Medication List Sodium Chloride (Nss 1000ml) 1,000 mls @ 60 mls/hr IV .[id number] [facility] Stop: 07/24/18 23:56 Last Admin: 06/25/18 02:05 Dose: 60 mls/hr Acetaminophen (Ofirmev) 650 mg in 65 mls @ 200 mls/hr IV Q6H PRN PRN Reason: fever/pain while npo Stop: 07/24/18 23:56 Last Infusion: 06/25/18 02:15 Dose: 0 mls/hr Admin: 06/25/18 01:54 Dose: 200 mls/hr Levothyroxine Sodium 150 mcg/ (Syringe) 7.5 mls @ 2 mls/min IV DAILY@0900 [facility] Stop: 07/25/18 08:59 Last Admin: 06/25/18 09:19 Dose: 2 mls/min Discontinued Medications Alteplase, Recombinant (Activase) 1 ea IV NOW STA; Protocol Stop: 06/24/18 21:48 Last Admin: 06/24/18 22:24 Dose: Not Given Alteplase, Recombinant 81 mg/ (EMPTY BAG) 81 mls @ 81 mls/hr IV ONCE STA Stop: 06/24/18 21:45 Last Infusion: 06/24/18 22:59 Dose: Admin: 06/24/18 22:01 Dose: 81 mls/hr Alteplase, Recombinant 9 mg/ (Syringe) 9 mls @ 9 mls/min IV ONCE STA Stop: 06/24/18 21:45 Last Admin: 06/24/18 21:58 Dose: 9 mls/min Ioversol (Optiray 320 100ml) 90 ml IV ONCE PRN PRN Reason: Interaction Checking Stop: 06/28/18 21:52 Last Admin: 06/24/18 21:53 Dose: 90 ml Levothyroxine Sodium (Synthroid) 300 mcg PO DAILYBB JOSE J Stop: 07/25/18 06:29 Last Admin: 06/25/18 07:16 Dose: Not Given Miscellaneous (Patient's Height And/Or Weight Needed) 1 ea N/A NOW STA Stop: 06/24/18 21:31 Last Admin: 06/24/18 22:24 Dose: Not Given Ondansetron HCl (Zofran) 4 mg IV NOW STA Stop: 06/24/18 22:07 Last Admin: 06/24/18 22:11 Dose: 4 mg Description This is a 21 electrode EEG with a single channel dedicated to limited EKG. The electrodes were placed in accordance with the International 10-20 system. At the start of the recording the patient was in an awake state. Background was well organized and composed of symmetric mixed alpha and beta frequencies. There was a symmetric well-formed moderate amplitude 9-10 Hz posterior dominant rhythm that was reactive to eye opening and closure. Hyperventilation was not done due to stroke symptoms. Intermittent photic stimulation at various frequencies produced no abnormalities. Sleep was indicated by vertex waves and symmetric sleep spindles. Interpretation This is a normal awake and asleep routine EEG. There was no electrographic seizures or epileptiform discharges. Clinical Correlation A normal EEG does not rule out epilepsy if there is a strong clinical suspicion.
--- NOTE | 2018-06-25 12:05 | Magnetic Resonance Report ---
MR brain wo con HISTORY: Mental status change Stroke TECHNIQUE: Multiplanar multisequence MRI of the brain was performed without the use of contrast. COMPARISON STUDY: None. FINDINGS: There are no areas of restricted diffusion to suggest acute infarction. The midline structu res are intact. The paranasal sinuses are clear. The mastoid air cells are clear. The ventricles and sulci are within normal limits for age. There is no mass, hematoma, midline shift. The major vascular flow-voids at the skull base are well maintained. IMPRESSION: No acute intracranial abnormality. The above report was generated using voice recognition software. It may contain grammatical, syntax or spelling errors. Electronically signed by: Rubén Stone M.D. 06/25/2018 12:04 PM
--- NOTE | 2018-06-25 12:07 | Magnetic Resonance Report ---
MR angio head wo con HISTORY: Mental status change Stroke. Attention to [place] TECHNIQUE: 3-D [id number] MRA of the brain was performed without contrast. COMPARISON STUDY: None. FINDINGS: Visualized intracranial internal carotid arteries, distal vertebral arteries, and basilar a rtery are widely patent. There is no significant stenosis, occlusion, or aneurysm seen within the josi ateral ACAs, MCAs, or amphibian crewmember. IMPRESSION: No significant stenosis, occlusion, or aneurysm within the [place]. 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 The above report was generated using voice recognition software. It may contain grammatical, syntax or spelling errors. Electronically signed by: Rubén Stone M.D. 06/25/2018 12:06 PM
--- NOTE | 2018-06-25 16:46 | Hospitalist Progress Note ---
Date of Service June 25, 2018 Assessment & Plan (1) Acute CVA (cerebrovascular accident): Stroke like Symptoms S/P tPA Head Imaging studies negative for CVA Tox Screen, Lyme screen negative EEG: A normal EEG does not rule out epilepsy if there is a strong clinical suspicion. 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 Needs parotid ultrasonography as outpatient DVT Px: SCDs for now Code Status Full code Disposition: To be determined Subjective Patient is seen and examined at bedside Left sided weakness/numbness and speech improving Denies any chest pain, SOB, dizziness Offers no other complaints Imaging studies negative for CVA Physical Exam 2 Vital Signs (Past 24 Hours): Last Vital Signs Temp 36.9 C 06/25/18 12:02 Pulse 58 L 06/25/18 14:00 Resp 12 06/25/18 14:00 BP 122/76 06/25/18 14:00 Pulse Ox 95 06/25/18 14:00 Physical Exam: Physical Exam: Vitals signs as noted above General Appearance:Moderately built and nourished, no apparent distress Head: normocephalic, Atraumatic, +dysarthria, +mild facial droop Eyes: normal inspection, EOMI Neck: supple, Trachea midline Respiratory/Chest: Normal breath sounds, CTA Cardiovascular: S1, S2, No murmur Abdomen/GI:Soft, Non tender, Bowel sounds present Extremities/Musculoskelatal:normal inspection, no edema Neurologic/Psych:AAOX3, LLE 4/5, LUE 4-5/5 Skin: normal color, warm Results & Data Laboratory Results Short CBC 06/24/18 06/25/18 Range/Units 21:05 04:28 WBC 6.68 5.99 (4.8-10.8) K/uL Hgb 15.2 13.9 L (14.0-18.0) g/dL Hct 46.8 42.1 (42-52) % Plt Count 253 230 (130-400) K/uL BMP 06/24/18 06/25/18 21:05 04:28 Sodium 139 139 Potassium 3.9 3.9 Chloride 105 107 Carbon Dioxide 26 26 BUN 15 12 Creatinine 0.98 0.81 Glucose 104 H 103 H Calcium 8.9 8.4 L Cardiac Enzymes 06/24/18 06/25/18 Range/Units 21:05 04:28 Troponin I < 0.015 < 0.015 (0-0.045) ng/ml Liver Function 06/24/18 Range/Units 21:05 Total Bilirubin 0.3 (0.1-1) mg/dl Direct Bilirubin (0-0.2) mg/dl AST 24 (15-37) U/L ALT 23 (12-78) U/L Alkaline Phosphatase 100 (45-117) U/L Albumin 4.3 (3.4-5.0) gm/dl Urine 06/25/18 Range/Units Unknown Urine Color Yellow Urine Appearance Clear (Clear) Urine pH 8.0 H (4.5-7.5) Ur Specific [place] 1.035 H (1.000-1.030) Urine Protein Negative (Negative) Urine Glucose (UA) Negative (Negative) Diagnostic Findings MRI Brain: No acute intracranial abnormality. MRA Head; No significant stenosis, occlusion, or aneurysm within the [place]. 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 Venous Doppler: No DVT within the right or left lower extremity.
--- NOTE | 2018-06-25 22:28 | CT Scan Report ---
CT head/brain wo con CT DOSE: 597.36 mGycm HISTORY: Mental status change 06/24/2018 TECHNIQUE: Multiaxial CT images of the head were performed without the use of intravenous contrast. A dose lowering technique was utilized adhering to the principles of ALARA. Comparison: 06/24/2018 Findings: The paranasal sinuses and mastoid air cells are clear. The calvarium and skull base are int act. The ventricles and sulci are within normal limits. There is no mass, hematoma, midline shift, or acute infarct. Impression: No acute intracranial abnormality. The above report was generated using voice recognition software. It may contain grammatical, syntax or spelling errors. Electronically signed by: Rubén Stone M.D. 06/25/2018 10:27 PM
[2018-06-25] MEDS ORDERED: CLOPIDOGREL BISULFATE 75 MG TAB PO ONE (23:23)
[2018-06-25] MEDS ORDERED: ASPIRIN 81 MG ECTAB PO STA (23:24)
--- NOTE | 2018-06-26 05:35 | Critical Care Progress Note ---
Date of Service June 26, 2018 Assessment & Plan (1) Acute CVA (cerebrovascular accident): 43-year-old male with acute CVA and LEFT-sided deficits status post TPA administration. Now with improving facial droop and L sided weakness. Stroke likely 2/2 paradoxical embolus in the setting of PFO NEURO - [facility] ICU: NEGATIVE Acute CVA with LEFT-sided weakness: improving Head CT 24hrs post TPA: negative Initial Head CT neg Head MRI neg ECHO: EF 65-70%; interatrial shunt noted c/w PFO Lipid profile: wnl but LDL > 100 at 116 EEG normal Hypercoagulability work up: pending Hypotensive at baseline: received 500mls of NS bolus and on NS at 60mls given pt on permissive HTN protocol for CVA Pain control: Tylenol Started on aspirin 81 and clopidogrel 75mg daily Started on lipitor 20mg QAM CARDIAC/VASCULAR - Hypotensive at baseline and bradycardic to 30s during sleep Head CTA: normal Head MRA: normal Neck CTA: Normal; 12mm parotid gland lesion (needs outpt follow up US) B/l LE doppler US: no DVT ECHO: EF 65-70%; interatrial shunt noted c/w PFO Trop neg EKG: Normal sinus rhythm with sinus arrhythmia at a rate of [address] or T wave changes noted. QTC 432 ms Monitor on telemetry RESPIRATORY - Sating well on RA No history of pulmonary disease. Monitor pulse oximetry. GI/NUTRITION Incidental finding of 12mm parotid gland lesion on CT - needs outpt US Regular diet RENAL/LYTES - No acute electrolyte derangements at this point. - No concerns at this time. Urine tox screen neg ENDO - No history of diabetes. HgbA1c 5.4 BSGs per unit protocol. ISS --> gtt per unit policy. Hyperthyroidism status post radioiodine ablation of the thyroid: -TSH 20.3->repeat TSH 13.9; Free T4 0.99 (TSH likely elevated in the setting of acute illness given improved repeat TSH) -PCP changed levothyroxine dose 2 months ago Continue levothyroxine. HEME - Stable H&H. Monitor for bleeding status post TPA administration. ID - Nasal MRSA swab neg Lyme neg No concerns for infection at this time. LINES/IV ACCESS - PIVs x2 DVT PROPHYLAXIS - Will hold on chemoprophylaxis secondary to TPA administration. SCDs (2) Left-sided weakness: (3) Hypothyroidism: Supervising Physician Co-Signing Physician Notes Seen and examined AM today. Discussed case with ICU team. Will need aspirin therapy. Neurology to help determine need for additional agents. He is medically stable and ready for transfer out of the ICU. Subjective Interval Hx: improving facial droop and very much improved L sided weakness s/p TPA. No concern for cerebral hemorrhage s/p TPA. Found to have PFO which likely caused stroke. Denies: Clark/dizziness, numbness/weakness, vision changes, cp, sob, abdominal pain , n/v, dysuria Physical Exam 2 Vital Signs (Past 24 Hours): Last Vital Signs Temp 36.4 C L 06/26/18 00:00 Pulse 48 L 06/26/18 01:01 Resp 11 L 06/26/18 01:01 BP 97/59 L 06/26/18 01:01 Pulse Ox 94 06/26/18 01:01 Physical Exam: General: Pt cooperative with exam and responsive Neuro: alert and oriented x 4, following commands; CN 2-12 intact with mild L sided facial droop; 5/5 strength bilateral upper and lower extremities; sensation intact CV: RRR, no m/r/g Pulm: CTAB, equal breath sounds bilaterally Abdomen: +BS, non-distended, nontender to palpation in all quadrants Extremities: no LE edema or calf tenderness Results & Data Laboratory Results Abnormal lab results 06/26/18 Range/Units 05:14 Chloride 111 H (98-107) mmol/L BUN/Creatinine Ratio 20.5 H (10-20) Calcium 8.3 L (8.5-10.1) mg/dl TSH 13.900 H (0.300-4.500) uIu/ml Medications Administered Current Inpatient Medications Aspirin (Ecotrin) 81 mg PO QAM [facility] Stop: 07/26/18 08:59 Clopidogrel Bisulfate (Plavix) 75 mg PO QAM [facility] Stop: 07/26/18 08:59 Sodium Chloride (Nss 1000ml) 1,000 mls @ 60 mls/hr IV .[id number] [facility] Stop: 07/24/18 23:56 Last Admin: 06/25/18 17:29 Dose: 60 mls/hr Lorazepam (Ativan) 0.25 mg in 0.5 mls @ 0.5 mls/min IV Q4H PRN PRN Reason: Anxiety Stop: 07/24/18 23:56 Prochlorperazine 5 mg/ Syringe 5 mls @ 5 mls/min IV Q6H PRN PRN Reason: Nausea And Vomiting Stop: 07/24/18 23:56 Last Admin: 06/25/18 22:41 Dose: 5 mls/min Acetaminophen (Ofirmev) 650 mg in 65 mls @ 200 mls/hr IV Q6H PRN PRN Reason: fever/pain while npo Stop: 07/24/18 23:56 Last Infusion: 06/25/18 18:52 Dose: Infused Levothyroxine Sodium 150 mcg/ (Syringe) 7.5 mls @ 2 mls/min IV DAILY@0900 JOSE J Stop: 07/25/18 08:59 Last Admin: 06/25/18 09:19 Dose: 2 mls/min Miscellaneous (Icu Protocol For Hyperglycemia) 1 ea N/A PRN PRN; Protocol PRN Reason: Hyperglycemia Protocol Stop: 06/26/18 23:56 Miscellaneous Information (Pharmacist Discharge Med Rec Consult) 1 ea N/A UD PRN PRN Reason: Consult Stop: 07/25/18 01:48 Morphine Sulfate (Morphine Sulfate) 4 mg IV Q4H PRN PRN Reason: Pain Stop: 07/08/18 23:56
[2018-06-26 05:50] LABS: BUN Creatinine Ratio 20.5 (10-20); Calcium 8.3 mg/dl (8.5-10.1); Creatinine Clr Calc Pharmacy 175.7 ml/min; Est GFR (African American) 130.2; Est GFR (Non-African American) 112.4; Potassium 4.1 mmol/L (3.5-5.1)
[2018-06-26] MEDS: SODIUM CHLORIDE 0.9% 1000ML 1,000 ML IV SCH ×2 (06:11→22:36)
[2018-06-26 06:13] LABS: T4 Free Thyroxine 0.99 ng/dl (0.8-1.6)
[2018-06-26] MEDS: CLOPIDOGREL BISULFATE 75 MG TAB PO SCH (08:57)
[2018-06-26] MEDS: ASPIRIN 81 MG ECTAB PO SCH (08:57)
[2018-06-26] MEDS: LEVOTHYROXINE SODIUM IV SCH (08:57)
[2018-06-26] MEDS ORDERED: ATORVASTATIN 20 MG TAB PO SCH (09:00)
[2018-06-26] MEDS ORDERED: ASPIRIN 81 MG ECTAB PO SCH (09:00)
--- NOTE | 2018-06-26 11:22 | Hospitalist Progress Note ---
Date of Service June 26, 2018 Assessment & Plan (1) Acute CVA (cerebrovascular accident): Stroke like Symptoms S/P tPA Head Imaging studies negative for CVA Tox Screen, Lyme screen negative EEG: A normal EEG does not rule out epilepsy if there is a strong clinical suspicion. 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 Need for rehab Subjective Patient is seen and examined at bedside Left sided weakness and speech much improved Numbness resolved Denies any chest pain, SOB, dizziness Offers no other complaints Physical Exam 2 Vital Signs (Past 24 Hours): Last Vital Signs Temp 36.7 C 06/26/18 08:00 Pulse 53 L 06/26/18 09:00 Resp 10 L 06/26/18 09:00 BP 107/66 06/26/18 09:00 Pulse Ox 94 06/26/18 09:00 Physical Exam: Physical Exam: Vitals signs as noted above General Appearance:Moderately built and nourished, no apparent distress Head: normocephalic, Atraumatic, +mild dysarthria Eyes: normal inspection, EOMI Neck: supple, Trachea midline Respiratory/Chest: Normal breath sounds, CTA Cardiovascular: S1, S2, No murmur Abdomen/GI:Soft, Non tender, Bowel sounds present Extremities/Musculoskelatal:normal inspection, no edema Neurologic/Psych:AAOX3, grossly no focal deficits Skin: normal color, warm
--- NOTE | 2018-06-26 14:05 | Progress Note ---
DATE: 06/26/2018 SUBJECTIVE: I am seeing Mr. Hermosillo in followup of an episode of left hemiparesis. The patient's left hemiparesis and speech and dysfunction resolved gradually over yesterday. His neurologic deficits lasted at least 17 hours. They were accompanied by a mild right-sided throbbing headache. His MRI of the brain is unremarkable. 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 His CTA of head and neck were normal and EEG was normal. Parenthetically, the jerking on the left side that the patient reported but that was not witnessed, has resolved. His echo shows a PFO with a right to left shunt. Venous Doppler of the lower extremity was negative. PHYSICAL EXAMINATION: GENERAL: He is awake and alert. NEUROLOGIC: Speech and language are normal. There are normal visual reese, facial symmetry. Motor 5/5, no drift. Normal rapid alternating movements. IMPRESSION: Complicated migraine versus transient ischemic attack. PLAN: I would treat it as if the transient ischemic attack knowing that it may have been a complicated migraine in a patient with prior common migraine. The fact that imaging is normal at this period of time with 19 hours of neurologic deficit raises the question whether it is complicated migraine. I would continue aspirin, Plavix, discontinue Plavix after 3 weeks. Recommend statin with a goal LDL of 70 or less. The patient will need outpatient cardiac monitoring and finally, although the patient has a PFO, he has no DVT. Await the results of hypercoagulable state workup. Patient will need to see us in 2-3 weeks post-discharge.
[2018-06-27] MEDS ORDERED: LEVOTHYROXINE SODIUM 150 MCG TABLET PO SCH (06:30)
[2018-06-27] MEDS: CLOPIDOGREL BISULFATE 75 MG TAB PO SCH (07:41)
[2018-06-27] MEDS: ASPIRIN 81 MG ECTAB PO SCH (07:41)
--- NOTE | 2018-06-27 07:47 | Clinical Documentation Query ---
Dr. LIN, [facility] : CLINICAL VALIDATION QUERY* Hospitalist documentation includes "acute CVA". Neurologist documentation now states "complicated migraine versus transient ischemic attack". 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 Thank you. Please clarify and document your clinical opinion in the progress notes and discharge summary. Terms such as "probable", "suspected", "likely", "questionable", "possible", or "still to be ruled out" are acceptable. IF IN AGREEMENT, YOU MUST DOCUMENT ABOVE DIAGNOSTIC STATEMENT IN DAILY PROGRESS NOTES AND DISCHARGE SUMMARY. This document is not part of the patient' s record. Thank You, Sadiq Menon, RN [phone] Complicataed Migraine Vs TIA MTDD
[2018-06-27] MEDS ORDERED: ATORVASTATIN 40 MG TAB PO SCH (09:00)
--- NOTE | 2018-06-27 11:41 | Hospitalist Progress Note ---
Date of Service June 27, 2018 Assessment & Plan (1) Acute CVA (cerebrovascular accident): Stroke like Symptoms: Complicate Migraine Vs TIA S/P tPA Head Imaging studies negative for CVA Tox Screen, Lyme screen negative EEG: A normal EEG does not rule out epilepsy if there is a strong clinical suspicion. 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 Incidental finding of right parotid mass on CT Needs parotid ultrasonography as outpatient DVT Px: SCDs for now Code Status Full code Disposition: PT/OT Plan to discharge home today Subjective Patient is seen and examined at bedside Left sided weakness and dysarthria resolved No new complaints Denies any chest pain, SOB, dizziness Physical Exam 2 Vital Signs (Past 24 Hours): Last Vital Signs Temp 36.4 C L 06/27/18 11:24 Pulse 70 06/27/18 11:24 Resp 18 06/27/18 11:24 BP 101/65 06/27/18 11:24 Pulse Ox 95 06/27/18 11:24 Physical Exam: Physical Exam: Vitals signs as noted above General Appearance:Moderately built and nourished, no apparent distress Head: normocephalic, Atraumatic Eyes: normal inspection, EOMI Neck: supple, Trachea midline Respiratory/Chest: Normal breath sounds, CTA Cardiovascular: S1, S2, No murmur Abdomen/GI:Soft, Non tender, Bowel sounds present Extremities/Musculoskelatal:normal inspection, no edema Neurologic/Psych:AAOX3, grossly no focal deficits Skin: normal color, warm
[2018-06-27] MEDS ORDERED: STROKE PATIENT DISCHARGE STA (11:56)
--- NOTE | 2018-06-27 12:03 | Discharge Summary ---
Date of Service June 27, 2018 Admission HPI Per Admitting Provider History obtained from patient, family, and records. Medical history significant for PVD (hx venous ulcers), hypothyroidism, ongoing tobacco abuse. Patient had just arrived home from hunting when he noted left-sided weakness, dysarthria, and left-sided facial weakness. He called out to a friend who was outside his house. Patient denies chest pain, SOB. No previous episodes in the past. Stroke alert called upon arrival at the ER. IV TPA administered at the ER. Some improvement noted in left lower extremity weakness. 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 Admission Exam Per Admitting Provider GENERAL: Slightly anxious , no respiratory distress, obese, dysarthric SKIN: Normal color, warm HEENT: [place]my[place] palpebral conjunctivae, no ptosis, facial droop left, dry buccal mucosa NECK : Supple, no tenderness CHEST : CTA, no tenderness HEART : RRR, no obvious murmurs ABDOMEN: Some distention, nontender EXTREMITIES : No LE swelling/tenderness, abrasion noted on some toes of the left foot NEUROLOGIC : Coherent, dysarthric, left facial droop, hemiparesis left Principal Diagnosis Discharge Information Discharge Diagnosis Complicated Migraine Vs TIA Discharge Goals Decrease discomfort,Improve disease control, Improve function Discharge Activity Limitations Per instructions/follow-up Discharge Data Allergies Allergy/AdvReac Type Severity Reaction Status Date / Time No Known Allergies Allergy Unverified 06/24/18 22:38 Consultations 06/24/18 22:11 ED Decision to Admit Stat 06/24/18 23:57 Consult Case Management - Discharge Planning Routine Consult Case Management - Discharge Planning Routine Consult Experimental Preflight Mechanic Routine Consult Neurology Routine Procedures Performed Brain MRI: No acute intracranial abnormality. Head MRA: No significant stenosis, occlusion, or aneurysm within the [place] of [place]. 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 Venous Doppler: No DVT within the right or left lower extremity. CT head: No acute intracranial abnormality. Head CTA: Normal study. Neck CTA: 1. No evidence of hemodynamically significant carotid or vertebral artery stenosis. No evidence of dissection. 2. Nonspecific 12 mm enhancing focus within the right parotid gland. Nonemergent parotid ultrasonography is recommended in follow-up. EEG: A normal EEG does not rule out epilepsy if there is a strong clinical suspicion. ECHO:patent foramen ovale Ordered Studies 06/24/18 21:15 CT head/brain wo con Stat 06/24/18 21:16 CT angio head w con Stat CT angio neck with con Stat 06/24/18 23:14 CT head/brain wo con Stat 06/25/18 08:51 US venous doppler LE BI Urgent 06/25/18 22:00 CT head/brain wo con Routine 06/25/18 23:57 MR angio head wo con Routine MR brain wo con Routine Hospital Course (1) Acute CVA (cerebrovascular accident): Stroke like Symptoms: Complicate Migraine Vs TIA S/P tPA Head Imaging studies negative for CVA Tox Screen, Lyme screen negative EEG: A normal EEG does not rule out epilepsy if there is a strong clinical suspicion. 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 Primary Care Sports Medicine to quit smoking Incidental finding of right parotid mass on CT Needs parotid ultrasonography as outpatient DVT Px: SCDs for now Code Status Full code Disposition: PT/OT Plan to discharge home today Total Time Total Time Spent Total Time Spent (In Minutes): 36 minutes Total Time Includes: Examination of the Patient, Discharge Planning, Medication Reconciliation and Other Discharge Plan Discharge Items Patient Disposition: Home - Home Health Services Reason For Visit: CVA Discharge Diagnosis: Complicated Migraine Vs TIA Discharge Goals: Decrease discomfort, Improve disease control and Improve function Activity: Per 'Additional Instructions' section Lifting: Gradually increase as tolerated Exercise/Sports: Gradually increase as tolerated Driving/Machine Use Comment: Do not drive until cleared by your Primary Care Physician Non-emergency contact: Primary Care Provider and Neurologist Call non-emergency contact if: you have any medication questions, your symptoms worsen, your pain is not controlled, your pain is worsening, your pain is unusual for you and you have a fever Diet: Regular Addtl Provider Instructions: Follow up with your Primary Care Physician Dr. Nobles on 12/14/18 at 9:05AM Follow up with your Neurologist Dr. Ynes Lerma in 2-3 weeks Continue Plavix 75 mg daily for 3 weeks and stop Continue aspirin 81 mg and lipitor 40mg as prescribed. Further recommendations as per your Neurologist Seek immediate medical attention if your symptoms reoccur or worsen Get Outpatient Physical therapy as advised Quit smoking tobacco as advised Risk Factors for Stroke: You can reduce your chances of stroke by working with your medical provider to adopt a healthy lifestyle. Some specific ways to lower your chance of stroke are: * If you are a smoker, now is the time to stop smoking cigarettes * If you are diabetic, improve the control of your blood sugars * Avoid excessive amounts of alcohol * Control high blood pressure * Lose weight if you are overweight * Be sure to lead an active lifestyle * Eat a healthy diet low in salt, cholesterol and fat You should know about other risk factors for stroke that you are unable to control. These include: * Age 55 years or older * Male gender * Certain racial groups: , or / * Family History of Stroke, Mini stroke or Heart Attack * Sickle Cell Disease Follow Up: It is important for you to keep your follow up appointments with your medical provider. Who to Call and When: Medical Emergencies: Call 911 immediately if you experience any of the following warning signs and symptoms of Stroke: * Sudden numbness or weakness of the face, arm or leg, especially on one side of the body * Sudden confusion, trouble speaking or understanding * Sudden trouble seeing in one or both eyes * Sudden trouble walking, dizziness, loss of balance or coordination * Sudden severe headache with no cause Do not delay calling 911 if you experience any warning signs or symptoms of a stroke. Delay in seeking medical attention may affect what treatments can be given to you. . Prescriptions: New atorvastatin 40 mg Tablet 40 mg PO QAM 30 Days Qty: 30 RF: 0 clopidogrel 75 mg Tablet 75 mg PO QAM 21 Days Qty: 21 RF: 0 aspirin [Ecotrin Low Strength] 81 mg Tablet,Delayed Release (Dr/Ec) 81 mg PO QAM 30 Days Qty: 30 RF: 0 Continue levothyroxine 300 mcg tablet 300 mcg PO DAILY RF: 0 Stand-Alone Forms: [facility], Work/School Release (Inpt) Discharge Orders: Discharge Order (Routine); Ordered 06/27/18 Ordered By: Jose Daniel Buck Admission Data Admit Date/Time: 06/24/18 22:55 Attending Provider: Jose Daniel Buck Admit Provider: Efrain Hilliard Primary Care Provider: Khanh Reynoso Other Providers: Efrain Hilliard ; Yousuf Hinton ; Ynes Goss ; Jerrell Mcclure ; Quique Barrett ; Ynes Olguin ; Lloyd Swan ; Andre Britton Service: Telemetry Medical Other Interventions: Discharge Summary Assessment (RN) Last Done: 06/27/18 12:05 Pending Studies at Discharge: Yes Studies:: Hypercoaguable work up
--- NOTE | 2018-06-27 12:55 | Pharmacy Report ---
Pharmacist Stroke Counseling - Date of Service June 27, 2018 - Scope: Pharmacy has been consulted to provide medication discharge counseling for this patient admitted with transient ischemic attack as per the Pharmacist Discharge Counseling for Stroke Patients Protocol. - Medications on Discharge: Home Medications Medication Instructions Recorded Confirmed levothyroxine 300 mcg PO DAILY 06/24/18 06/24/18 New Rx's Medication Instructions Recorded aspirin [Ecotrin Low Strength] 81 mg PO QAM 30 Days #30 tab 06/27/18 atorvastatin 40 mg PO QAM 30 Days #30 tab 06/27/18 clopidogrel 75 mg PO QAM 21 Days #21 tab 06/27/18 - Action: The above medications, specifically ones for stroke treatment/prophylaxis, have been reviewed in detail with the patient and/or patient medical device sales representative(s) prior to discharge. This includes indication, common adverse reactions, drug interactions, and medication administration. Medication counseling has been employed using the teach-back method to ensure understanding. - Outcome: The patient and/or patient medical device sales representative(s) have demonstrated understanding of the medications. Please note, they are aware that the pharmacist will call them within 72 hours post-discharge to confirm that the appropriate medications are being taken and answer any further medication related questions the patient might have at that time. Contact information Individual to be contacted: Patient Phone number: [phone] Best time to call: anytime Additional comments: Patient being discharged with diagnosis of TIA vs migraine, but still being treated for TIA. New medications are ASA, Plavix (x 3 weeks only) and Lipitor 40 mg. I reviewed each new medication, in addition to side effects of each. Patient also advised to take these separate from his Synthroid. Patient did not have any major questions related to medications. Thank you for allowing pharmacy to be involved in the care of this patient. Please call [phone] or [phone] with any additional questions
[2018-06-30 12:15] LABS: B2 Glycoprotein IgA <9 SAU (<=20); B2 Glycoprotein IgG <9 SGU (<=20); B2 Glycoprotein IgM <9 SMU (<=20); Lupus Anticoagulant Negative (Negative); Protein S Functional(Activity) 138 % (70-150)
--- NOTE | 2018-07-04 12:35 | Pharmacy Report ---
Pharmacist Post D/C Phone Note - Phone Note: Date of phone call: July 04, 2018. The patient and/or patient enrollment representative(s) were unable to be reached for a follow-up phone call within the 72 hour time frame. Discharge counseling pharmacist contact information has already been provided to the patient should questions arise. Thank you for allowing us to be involved in the care of this patient. - Home Medications: Home Medications Medication Instructions Recorded Confirmed levothyroxine 300 mcg PO DAILY 06/24/18 06/24/18 New Rx's Medication Instructions Recorded aspirin [Ecotrin Low Strength] 81 mg PO QAM 30 Days #30 tab 06/27/18 atorvastatin 40 mg PO QAM 30 Days #30 tab 06/27/18 clopidogrel 75 mg PO QAM 21 Days #21 tab 06/27/18
== END 2018-06-27 13:38 | disposition home health service (06) | DRG 62 ==
LOC: 1E 22:55 → 2N 06-26 12:12

== ENCOUNTER 2022-05-26 09:40 | Observation (INO) ==
--- NOTE | 2022-04-20 09:35 | PAT Medication Instructions ---
Medication Instructions Date of Service April 20, 2022 Home Medications levothyroxine 300 mcg tablet 200 mcg PO QAM Take morning of surgery With a small sip of water, OTHERWISE NOTHING TO EAT OR DRINK AFTER MIDNIGHT: levothyroxine 300 mcg tablet 200 mcg PO QAM Other Notes If you have any questions please call us at [phone] or [phone] or [phone] or [phone]
--- NOTE | 2022-04-20 10:10 | Anesthesiology Consultation ---
Date of Service April 20, 2022 Assessment & Plan (1) Encounter for pre-operative examination: - Outpatient joint assessment: Patient is currently scheduled for inpatient pathway. If re-evaluated pending system levels during current pandemic/surgeon requests outpatient pathway, patient is not acceptable candidate for outpatient joint program from anesthesia standpoint. - cardiology pre-op evaluation 03/30/22 PSH: "...history of a PFO, status post CVA with PFO closure December of [address] [place] [facility] [place] and history of fleeting palpitations...doing well. Denies any chest pain or chest pressure, chest heaviness, shortness of breath, PND or orthopnea and can climb a flight of stairs without any difficulty...fleeting palpitations in the last 2 or 3 seconds...risk of cardiac complications with knee surgery is in the range of 1- 2%. This includes heart attack, dying from cardiac causes, arrhythmias and congestive heart failure...with regards to his palpitations, I discussed with him that at this point, it really depends on how much they are impacting his quality of life...not lightheaded...no racing...he did not want any medical therapy..." Chart Review Chart Review: Acceptable Risk for Surgery and Patient seen in Pre Admission Testing Teaching & Discussion Pre-Anesthesia Teaching/Discussion Notes: Instructed NPO after midnight before surgery, except medications with 15 cc of water. Medication instructions provided according to the PAT guidelines. History Surgery Operation Date: 05/26/22 07:00 Proposed Procedures p Right Total Knee Arthroplasty - Adiel Bañuelos MD Height/Weight Height: 6 ft 2 in Weight: 128.2 kg Allergies Allergy/AdvReac Type Severity Reaction Status Date / Time No Known Allergies Allergy Verified 04/17/22 08:06 Medications Home Medications Medication Instructions Recorded Confirmed Last Taken levothyroxine 300 mcg tablet 200 mcg PO QAM 06/24/18 04/17/22 Unknown Past Medical History Medical History (Updated 04/20/22 @ 10:14 by Jessy Rivero PA-C) GERD (gastroesophageal reflux disease) controlled, stable per pt H/O Graves' disease Post treatment with radiation. History of benign neoplasm of salivary gland removed History of COVID-2019-FEVER, FATIGUE, NO HOSPITALIZATION, NO CURRENT ISSUES History of CVA (cerebrovascular accident) 06/2018- NO KNOWN DEFICITS, NO ISSUES SINCE Hyperthyroidism Sleep apnea no treatment Patient denies h/o seizures, heart attack, heart failure, DM, HTN, blood clots or blood transfusions. Exercise / Class Metabolic Activity II 4-5 Yardwork/Stairs/Walk up hill (denies CP or SOB with 1 FOS) Past Family History Family History Other No family history of adverse response to anesthesia Past Surgical History Surgical History (Updated 04/20/22 @ 10:13 by Jessy Rivero PA-C) History of arthroplasty of right shoulder History of repair of ACL L Hx of arthroscopy of right knee S/P patent foramen ovale closure 2018[place] [facility] [place] [facility] CARDIO LAST VISIT 03/2022 Past Anesthesia History No Hx of Anesthesia Complications and No Family Hx of Anesthesia Complications History of PONV No Hx of PONV and No Hx of Motion Sickness Social History Smoking Status: Never smoker tobacco type: cigarettes Do You Dip or Chew Tobacco: Yes (ADVISED) Hx Alcohol Use: Yes Alcohol type: beer alcohol intake frequency: a few times a month Hx Substance Use: No substance use type: does not use Review of Systems Chronic palpitations, following with [facility] cardiology, denies change or worsening, denies associated lightheadedness, dizziness, shortness of breath, or chest discomfort. Patient denies chest pain, shortness of breath, dyspnea on exertion, fever, c hills, cough, wheezing. Physical Exam Vital Signs Vitals BP 128/90 P 82 TEMP 98.1 SP02 100% on RA RESP 18 Physical Full cervical extension range of motion without pain TMD 3.5 finger breadths Mallampati Score 2 Dentition: intact, denies chipped or loose teeth, caps/crowns, implants or bridges Lungs: normal respiratory effort. Clear throughout to auscultation, no adventitious breath sounds Cardiac: regular rate and rhythm, no murmurs noted Carotid arteries: negative bruit bilat Lab Results Anesthesia Preop Results Results Anesthesia Widget: WBC 6.42 K/ul (4.8-10.8) 04/20/22 Hgb 15.3 g/dl (14.0-18.0) 04/20/22 Hct 45.7 % (40.1-51.0) 04/20/22 Plt 236 K/uL (130-400) 04/20/22 Na 138 mmol/L (136-145) 04/20/22 K 4.1 mmol/L (3.5-5.1) 04/20/22 Cl 104 mmol/L (98-107) 04/20/22 CO2 28 mmol/L (21-32) 04/20/22 BUN 10 mg/dl (6-23) 04/20/22 Creat 0.79 mg/dl (0.6-1.4) 04/20/22 Glucose Level 75 mg/dl (70-99(Fasting)) 04/20/22 PT 10.4 Seconds (9.0-12.0) 04/20/22 PTT 28.8 Seconds (21.0-31.0) 04/20/22 INR 1.0 (0.9-1.1) 04/20/22 Blood Type B Negative 04/20/22 Antibody Screen NEGATIVE 04/20/22 Testing Electrocardiogram Date: 04/20/22 Sinus bradycardia, rate 59 bpm Chest X-Ray Date: 04/20/22 Lung volumes are normal. Lungs are clear. There is no pneumothorax or pleural effusion. Cardiac size is at the upper limits of normal. Possible asd occluder device is in place. Mediastinal contours are normal. There is no evidence for pulmonary edema. IMPRESSION: No acute cardiopulmonary findings. Echocardiogram Date: 07/24/18 BETI Atrial septal aneurysm incidentally noted, with small, hemodynamically insignificant shunt. PFO Normal LV systolic function Normal variant Chiari network noted No significant valvular disease 06/25/18 EF 65-70% Normal LV wall motion No significant valvular pathology PFO Other Testing Neck CTA 06/24/18 1. No evidence of hemodynamically significant carotid or vertebral artery stenosis. No evidence of dissection. 2. Nonspecific 12 mm enhancing focus within the right parotid gland. Nonemergent parotid ultrasonography is recommended in follow-up. COVID-19 Risk Screen Screening Information COVID-19 Screen Date: 04/20/22 Exposure 21 Days Family/Household +COVID Last 21 Days: No Exposure 10 Days Any COVID Exposure Last 10 Days: No Symptoms Last 10 Days Experienced COVID Sx Last 10 Days: No + COVID 0-90 Days COVID + in Last 0-90 Days: No
--- NOTE | 2022-05-25 07:53 | History and Physical Report ---
DATE OF ADMISSION: 05/26/2022. CHIEF COMPLAINT: Right knee pain. HISTORY OF PRESENT ILLNESS: A 47-year-old gentleman presents for surgical treatment of his right kne e. He has got a long history of knee problems in the past. His right knee scope by Dr. Banegas done in 2013. That really did not help him much. He continues to be bothered by persistent pain. He braun s been through extensive conservative treatment including injections and oral medicines. The shots h elped him for about a week and that is it. 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 He limps more as the day goes on. He is hoping to have his knee fixed . PAST MEDICAL HISTORY: 1. Significant for a mini stroke due to a patent foramen ovale without any residual symptoms and had repaired a PFO in 2019. 2. Hypothyroidism. 3. Gastroesophageal reflux disease. 4. Low back pain/sciatica. PREVIOUS SURGERIES: Include: 1. Left knee ACL reconstruction. 2. Right knee scope in 2013. 3. Right hand surgery. 4. Jaw and salivary gland surgery. ALLERGIES: None. CURRENT MEDICATIONS: Levothyroxine. SOCIAL HISTORY: A 47-year-old male. 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 He drinks occasionally on weekends. He does not smoke. He lives by himself. FAMILY HISTORY: Noncontributory. REVIEW OF SYSTEMS: Negative for diabetes. A fairly large gentleman. Moderately obese with a BMI of 35.3. No chest pain or shortness of breath. No history of DVT or PE. He did have the stroke due t o patent foramen ovale, which has been repaired. PHYSICAL EXAMINATION: GENERAL: Shows a pleasant middle-aged male. Looks to be in good health. HEENT: Benign. NECK: Supple. No lymphadenopathy. LUNGS: Clear to auscultation. HEART: Has a regular rate and rhythm. ABDOMEN: Soft, nontender, nondistended. EXTREMITIES: Grossly neurovascularly intact except as follows: Examination of the right knee reveal s the patient ambulates independently. He has got slight bit of a limp. He has got varus alignment to his knee. He has got well-healed portal sites. Small to moderate-sized knee effusion. Tender wi th medial joint line. Range of motion is 0-125. No instability. X-RAYS: Four views of the right knee were reviewed. It shows advanced right knee DJD. He has got n ear-complete loss of his medial joint space. He has got some lateral compartment disease as well. 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 He has failed all conservative measures. He is having trouble performing hi s job due to his arthritis. He would like to have his knee fixed. He is fully aware at his young ag e, this may need to be revised in the future and he would like to proceed. PLAN: We will proceed with right knee replacement. The risks and benefits of this procedure were ex plained to the patient and include, but not limited to DVT, PE, , infection, neurological injury , vascular injury, bleeding problem, pain, limited range of motion, stiffness, failure to relieve his symptoms, incomplete relief of the symptoms, need for revision surgery. The patient understands and desires to proceed. Informed consent was obtained. He lives by himself. He is going to have his sister and mother assist in his care. Job ID: [id number]
[~2022-05-26 09:40] MED LIST changes: +ACETAMINOPHEN 500 MG TAB PO SCH; +BUPIVACAINE 0.25% 30 ML VIAL ONE; +BUPIVACAINE 0.5 % 5 MG/1 ML PF 10ML VIAL ONE; +BUPIVACAINE LIPOSOME/PF 266 MG, BUPIVACAINE/EPINEPHRINE 50 ML, SODIUM CHLORIDE 0.9% 30 ... INFIL SCH; +CeleBREX 200 MG CAP PO SCH; +DEXAMETHASONE SOD INJ 4 MG/ML VIAL ONE; +EPINEPHrine INJ 1 MG/ML AMP ONE; +FAMOTIDINE 20 MG TAB PO SCH; +LR 500ML BOLUS, THEN 15ML/HR IV SCH; +LR 60ML/HR IV SCH; +METOCLOPRAMIDE HCL 10 MG TABLET PO SCH; -PATIENT'S HEIGHT AND/OR WEIGHT NEEDED STA; +Scopolamine 1 MG TDSY TD SCH; +TRANEXAMIC ACID 1,000 MG **IV Intra-op IV SCH
--- NOTE | 2022-05-26 11:04 | History & Physical Bridge Note ---
Date of Service May 26, 2022 History & Physical Bridge Note I have examined the patient, reviewed the History & Physical and in the interval since the performance of the History & Physical I have noted the following changes of clinical significance: no changes noted
[2022-05-26] MEDS ORDERED: MIDAZOLAM HCL 1 MG/ML 2ML VIAL ONE (11:53)
[2022-05-26] MEDS ORDERED: fentaNYL citrate 100 MCG/2 ML VIAL ONE (11:53)
[2022-05-26] MEDS ORDERED: ONDANSETRON INJ 2 MG/ML 2 ML VIAL ONE (12:47)
[2022-05-26] MEDS ORDERED: DEXAMETHASONE SOD INJ 4 MG/ML VIAL ONE (12:47)
[2022-05-26] MEDS ORDERED: PROPOFOL IV EMULSION 10 MG/ML 20 ML VIAL IV ONE ×3 (12:47→14:11)
[2022-05-26] MEDS ORDERED: EPINEPHrine INJ 1 MG/ML AMP ONE (13:13)
[2022-05-26] MEDS ORDERED: BUPIVACAINE 0.25% 30 ML VIAL ONE (13:14)
[2022-05-26] MEDS ORDERED: SODIUM CHLORIDE 0.9% PF 50 ML VIAL ONE (13:14)
[2022-05-26] MEDS ORDERED: BUPIVACAINE LIPOSOME 1.3% 266 MG/20 ML VIAL ONE (13:14)
[2022-05-26] MEDS ORDERED: ePHEDrine sulfate 50 MG/ML AMP ONE (14:31)
[2022-05-26] MEDS ORDERED: fentaNYL citrate 100 MCG/2 ML VIAL IV PRN (14:31)
[2022-05-26] MEDS ORDERED: ePHEDrine sulfate 50 MG/ML AMP IV PRN (14:31)
[2022-05-26] MEDS ORDERED: ONDANSETRON INJ 2 MG/ML 2 ML VIAL IV PRN ×2 (14:31→16:21)
[2022-05-26] MEDS ORDERED: ATROPINE SULFATE 0.1 MG/ML 10ML SYR IV PRN (14:31)
--- NOTE | 2022-05-26 15:23 | Operative Report ---
PG Post Operative Report Pre & Post Diagnosis Operation Date: 05/26/22 12:30 Pre-Op Diagnosis: Right Knee Degenerative Joint Disease Post-Op Diagnosis: Right Knee Degenerative Joint Disease I identified the patient and participated in the time-out.: Yes Procedure Operation Date: 05/26/22 12:30 Actual Procedures p Right Total Knee Arthroplasty(Right) - Adiel Bañuelos MD Surgeon Adiel Bañuelos MD Warehouse Administrative Assistant Manish Quan PA-C Estimated Blood Loss 50 Findings Consistent with Post-Op Diagnosis Operative findings were advanced right knee DJD. He had grade 4 [id number] disease in the medial compartment mostly affecting the medial femoral condyle. Not really eburnation but full-thickness cartilage loss. He had some focal grade 4 changes of the patellofemoral joint. The lateral part was fairly well- preserved. Moderate-sized joint effusion. Large gentleman with a moderate soft tissue envelope. 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 He had his knee scoped about 8 years ago which really did not help too much. They have been through extensive conservative management for which became less successful over time. He is having trouble doing his job due to his knee pain. A x-ray showed progressive knee arthritis. He elected proceed with surgical treatment. He was made fully aware his young age this may need to be revised at some point in the future. Description of Procedure Operative implants consist of: 1. Biomet Vanguard size 75 right posterior stabilized femoral component. 2. Biomet size 83 tibial tray. 3. 14 mm posterior stabilized polyethylene insert. 4. 37 x 10 all Paller patella. The patient was taken the operating, identified, and placed on the operating table supine position. All contact areas were appropriately padded. IV antibiotics arrived by anesthesia team. A spinal anesthetic and abductor canal block had been provided in the holding area. Macias catheter was placed in sterile fashion. Right thigh high tourniquet was then placed in the right lower extremities then prepped and draped in usual sterile fashion. The right leg was elevated exsanguinated with the use of an Esmarch and the tourniquet was set at 300 mmHg. An anterior approach of the right knee was then performed through a longitudinal incision centered over the patella. Sharp dissection Through subcutaneous tissue down the extensor mechanism. A medial parapatellar arthrotomy incision was made. Some subperiosteal dissection was carried out medially. The fat pad was resected from Neath patella tendon. Lateral patellofemoral ligament was released. Patella subluxated laterally and the knee was flexed. The osteophytes taken off distal femur P the ACL and PCL were then released from distal femur the tibia subluxated anteriorly. The external tibial alignment jig was then placed on the anterior face of the tibia and adjusted 14 mm medially. Proximal tibial cut was made to remove about 1 to 2 mm from the most deficient aspect medial tibial plateau. The tibia was then sized to a size 83. Attention drawn the femur. The distal femur then with a sharp drill. Intramedullary canal was suction. A right 6 degree valgus cutting guide was placed. Distal femoral cutting block was pinned in place. Distal femoral cut was made to take an additional 3 mm bone off distal femur. The femur was then sized to a size 75. We did downsize this about a half a size. The AP cutting block was pinned parallel to the epicondylar axis which was 4 degrees of external rotation. The anterior cut, anterior chamfer, posterior cut, posterior chamfer cuts were made. The box cutting guide was placed in just slight lateral box cut was made. The knee was flexed. The remnants of the medial and lateral menisci were excised. The osteophytes were taken off the posterior aspect of femur. Trial femoral component was placed. Tibial tray was then pinned in maximum external rotation and the instrument drill and stem punch were used to create the defect in proximal tibia for the tibial tray. The knee was then trialed and the 14 mm insert fit most appropriately. Attention drawn the patella. The patella was cleaned of all soft tissues. Patella thickness measured 33 mm in thickness and was cut down to 18. Was sized to a size 37 patella. The lug holes were drilled for the 37 patella. The lateral osteophyte was removed. Patella was placed. Knee was taken through range of motion patella tracked nicely with no thumbs test. Attention drawn to placing permanent components. All trial components were removed. Bone plug was placed in the distal femur limit blood loss. Double batch Palacos G cement was mixed. A [employer] Holding[employer] size 75 right posterior stabilized femoral component, size 83 tibial tray, a 14 mm posterior stabilized polyethylene insert, and a 37 x 10 all Paller patella then cemented in place. New spreadout into full extension total cement hardened. Final cement check was then performed. The pericapsular tissues were injected with total 100 cc of combination of 20 cc of Exparel, 30 cc normal saline, 50 cc of quarter percent Marcaine with epinephrine. Patient did receive 1 g tranexamic acid. The tourniquet was let down for final tourniquet time of 58 minutes. Hemostasis reduced electrocautery. Extensor mechanism closed with combination 1 PDS suture #1 Vicryl suture in [id number] fashion. Extensor mechanism checked found to be intact with subcutaneous tissue then closed with 2 Dexon suture in a buried interrupted fashion skin was closed skin radha. Leg was then cleaned and dried a sterile dressing was Xeroform, 4 x 4's, sterile cast padding, Long bandage were applied. Patient then transferred to the recovery room in stable condition. Patient tolerated procedure well and there were no complications. Manish Quan, my physician educational/development assistant, was present for the entire procedure. His assistance was essential and required for appropriate patient positioning, prepping and draping, surgical exposure, performing the technical details of the operation, placement the implants, closure of the wound, and placement of the sterile bandage. I attest to the content of the Intraoperative Record and any orders documented therein. Any exceptions are noted below.
--- NOTE | 2022-05-26 15:31 | XRay Report ---
RIGHT KNEE 2 VIEWS History: Right total knee arthroplasty. Degenerative arthritis. Postop. FINDINGS: The patient is status post a right total knee arthroplasty. The hardware is intact. No frac ture or dislocation. Skin radha are in place. IMPRESSION: Right total knee arthroplasty. No evidence for hardware complication. ACT 112: Negative or not required by law. Electronically signed by: Sergio Oden M.D. 05/26/2022 3:30 PM
--- NOTE | 2022-05-26 15:48 | Anesthesiology Progress Note ---
Date of Service May 26, 2022 Anesthesia Post Procedure Vital Signs Vital Signs: Temp Pulse Pulse Resp BP Pulse Ox O2 Del Method 05/26/22 15:35 59 L 14 104/60 100 Oxymask 05/26/22 15:25 51 L 12 118/63 100 Oxymask 05/26/22 15:18 37.1 C 68 16 102/62 96 Oxymask 05/26/22 10:17 36.4 C L 60 20 128/94 99 Room Air O2 Flow Rate 05/26/22 15:35 4 05/26/22 15:25 9 05/26/22 15:18 9 05/26/22 10:17 Pain Intensity Left Knee: Pain Intensity: 8 Transfer of Care Handoff Completed per policy Notes Mental Status: alert / awake / arousable Patient Amnestic to Procedure: Yes Nausea / Vomiting: adequately controlled Pain: adequately controlled Airway Patency, RR, SpO2: stable & adequate BP & HR: stable & adequate Hydration State: stable & adequate Neuraxial Anesthesia: was administered and sensory block is resolving Anesthetic Complications: no major complications apparent and Pt Satisfied with anesthetic care
[2022-05-26] MEDS ORDERED: ALUMINUM/MAGNESIUM SUSP 30 ML UDC PO PRN (16:21)
[2022-05-26] MEDS ORDERED: NALOXONE HCL 0.4 MG/1 ML VIAL/CARP IV PRN (16:21)
[2022-05-26] MEDS ORDERED: bisacodyL 10 MG SUPP PR PRN (16:21)
[2022-05-26] MEDS ORDERED: TAMSULOSIN HCL 0.4 MG CAP PO PRN (16:21)
[2022-05-26] MEDS ORDERED: METOCLOPRAMIDE HCL INJ 5 MG/ML 2 ML VIAL IV PRN (16:21)
[2022-05-26] MEDS ORDERED: HYDROmorphone INJ 1 MG/ML SYRINGE IV PRN (16:21)
[2022-05-26] MEDS ORDERED: diphenhydrAMINE Capsule 25 MG CAP PO PRN (16:21)
[2022-05-26] MEDS ORDERED: MAGNESIUM HYDROXIDE SUSP 30 ML UDC PO PRN (16:21)
[2022-05-26] MEDS ORDERED: oxyCODONE HCL IR 5 MG TAB (IMMEDIATE RELEASE) PO PRN (16:21)
[2022-05-26] MEDS: SODIUM CHLORIDE 0.9% 1000ML 1,000 ML IV SCH (17:15)
[2022-05-26] MEDS: KETOROLAC 30 MG/ML VIAL IV SCH ×2 (17:16→21:34)
[2022-05-26] MEDS: ASCORBIC ACID 500 MG TAB PO SCH (17:16)
[2022-05-26] MEDS: Scopolamine CHECK PATCH PLACEMENT SCH (17:16)
[2022-05-26] MEDS: DOCUSATE SODIUM/SENNA 50/8.6MG TAB PO SCH (20:28)
[2022-05-26] MEDS: ACETAMINOPHEN 500 MG TAB PO SCH (20:28)
[2022-05-26] MEDS: TAPENTADOL HCL ER 50 MG TABCR PO SCH (20:29)
[2022-05-26] MEDS: ASPIRIN 81 MG ECTAB PO SCH (20:30)
[2022-05-26] MEDS: DOCUSATE SODIUM 100 MG CAP PO SCH (20:30)
[2022-05-26] MEDS ORDERED: SENNA 8.6 MG TAB PO SCH (21:00)
[2022-05-26] MEDS ORDERED: TRANEXAMIC ACID / 0.7% NACL 1,000 MG/100 ML BAG IV SCH (21:15)
[2022-05-26] MEDS: ceFAZolin 2000MG 2,000 MG/15 ML SYR IV SCH (21:33)
[2022-05-27] MEDS: Scopolamine CHECK PATCH PLACEMENT SCH ×2 (01:05→08:01)
[2022-05-27] MEDS: SODIUM CHLORIDE 0.9% 1000ML 1,000 ML IV SCH (03:04)
[2022-05-27] MEDS: ceFAZolin 2000MG 2,000 MG/15 ML SYR IV SCH (04:45)
[2022-05-27] MEDS: KETOROLAC 30 MG/ML VIAL IV SCH ×2 (04:46→10:36)
[2022-05-27] MEDS: ACETAMINOPHEN 500 MG TAB PO SCH (05:24)
[2022-05-27 06:56] LABS: Hematocrit (blood only) 37.7 % (40.1-51.0); Hemoglobin 12.7 g/dl (14.0-18.0); Mean Corpuscular Hgb Conc 33.7 g/dL (32.0-36.0); Mean Platelet Volume 10.4 fL (9.4-12.4); Platelet Count 222 K/uL (130-400); RDW Coefficient of Variation 12.8 % (11.5-14.5); RDW Standard Deviation 44.6 fL (36.4-46.3); Red Blood Count 3.97 M/uL (4.63-6.08); White Blood Count 15.07 K/ul (4.8-10.8)
[2022-05-27 07:27] LABS: Calcium 8.6 mg/dl (8.5-10.1); Creatinine Clr Calc Pharmacy 143.8 ml/min; Est GFR (African American) 117.5 ml/min; Est GFR (Non-African American) 101.4 ml/min; Potassium 4.6 mmol/L (3.5-5.1)
[2022-05-27 07:33] VITALS: PULSE 48; TEMP 97.9; O2SAT 99
[2022-05-27] MEDS: TAPENTADOL HCL ER 50 MG TABCR PO SCH (08:00)
[2022-05-27] MEDS ORDERED: dexAMETHasone 10 MG in SYRINGE 0 ML IV SCH (08:00)
[2022-05-27] MEDS: DOCUSATE SODIUM 100 MG CAP PO SCH (08:01)
[2022-05-27] MEDS: ASPIRIN 81 MG ECTAB PO SCH (08:01)
[2022-05-27] MEDS: DOCUSATE SODIUM/SENNA 50/8.6MG TAB PO SCH (08:01)
[2022-05-27] MEDS: ASCORBIC ACID 500 MG TAB PO SCH (08:01)
[2022-05-27] MEDS ORDERED: MULTIVITAMIN TAB PO SCH (09:00)
[2022-05-27] MEDS ORDERED: LEVOTHYROXINE SODIUM 200 MCG TABLET PO SCH (09:00)
[2022-05-27 15:11] VITALS: BP 114/66
--- NOTE | 2022-05-27 19:54 | Progress Notes ---
DATE OF SERVICE: 05/27/2022. SUBJECTIVE: A 47-year-old male postoperative day 1 from right knee replacement. He is doing pretty well. No chest pain or shortness of breath. He has been getting up and going to the bathroom quite well by himself. Therapy went well today. OBJECTIVE: VITAL SIGNS: Temperature 36.6. Vital signs are stable. PHYSICAL EXAMINATION: GENERAL: Shows a pleasant, large middle-aged male. He is sitting up in bed and looks quite comforta ble. LUNGS: Clear to auscultation. HEART: Regular rate and rhythm. ABDOMEN: Soft, nontender, nondistended. EXTREMITIES: Grossly neurovascularly intact except as follows: Examination of the right leg reveals the dressing to be clean, dry and intact. There is no drainage. He can do a good straight leg rais e. He can dorsiflex and plantarflex his foot appropriately. He is neurologically intact. LABORATORY DATA: Hemoglobin 12.7. Hematocrit 37.7. Electrolytes are stable. ASSESSMENT: A 47-year-old gentleman, postoperative day 1 from right knee replacement, doing pretty w ell. Pain is controlled. He is neurologically intact. PLAN: 1. DVT prophylaxis includes thigh-high TEDs, SCDs, and aspirin twice a day for 6 weeks. 2. PT/OT, weightbear as tolerated. Right total knee protocol. 3. Pain control, doing well with current pain regimen. 4. Disposition: Plan to discharge to home today with some home health. Job ID: [id number]
--- NOTE | 2022-05-31 06:48 | Discharge Summary ---
Date of Service May 31, 2022 Discharge Data Procedures Performed Operation Date: 05/26/22 12:30 Actual Procedures p Right Total Knee Arthroplasty(Right) - Adiel Bañuelos MD Hospital Course (1) Status post total right knee replacement: This is a 47 year old patient admitted on 05/26/22 and underwent total knee arthroplasty. He tolerated the procedure well and there were no complications. Transferred to the PACU post op and later to the orthopedic floor for further care. He was given ancef for antibiotic prophylaxis. He was also given DELORIS stockings, SCDs, and aspirin for DVT prophylaxis. Hemoglobin, hematocrit, and vital signs were monitored during his hospital stay and remained stable. Did not require any blood transfusions. There were no complications during his hospital stay. By post op day #1 the patient was tolerating a regular diet, pain was reasonably controlled with oral pain medicine, and he was participating in physical therapy. On post op day #1 the patient was discharged home and set up with home health care. He was given printed discharge instructions including prescriptions for extra strength tylenol, aspirin, ketorolac, zofran, senokot, and oxycodone. Continue physical therapy, weight bearing as tolerated. Continue DELORIS stockings. Follow up approximately 2 weeks post op or sooner if there are problems or concerns. Coding Level of Care Code None Diagnoses Status post total right knee replacement Z96.651
== END 2022-05-27 15:52 | disposition home health service (06) ==
LOC: ASU 09:40 → 3E 09:40

== ENCOUNTER 2023-12-12 19:10 | Observation (INO) ==
--- OUTSIDE RECORDS SUMMARY | 2023-12-12 19:15 | External Medical Summary | Summary of Care ---
Author Name Unknown Organization [facility] Address [address] [place] [address] Phone [phone] Care Team Providers Care [employer] Barista Name Role Phone Matthew Schroeder PA-C Primary Care Provider [phone] Reason for Visit * Reason Comments Follow Up Encounter Details Date Type Department Care Team (Latest Contact Info) Description 07/07/2023 8:00 AM EST Telemedicine [address] [phone] Matthew Schroeder PA-C [address] [place] [address] Postablative hypothyroidism*; Hyperlipidemia, unspecified hyperlipidemia type Allergies No known active allergiesdocumented as of this encounter (statuses as of 07/07/2023) Medications Medication Sig Dispensed Refills Start Date End Date Status tiZANidine HCl 2 MG Oral Tablet (Zanaflex)Indication s:Cervical radiculopathy Take 1 Tablet by mouth every 6 hours as needed for Muscle spasms. 15 Tablet 0 05/27/2023 Active methylPREDNISolone 4 MG Oral Tablet Therapy Pack (Medrol Dosepack)Indications :Cervical radiculopathy follow package directions 21 Tablet 0 05/27/2023 Active Levothyroxine Sodium 200 MCG Oral Tablet (Levoxyl)Indications :Postablative hypothyroidism TAKE 1 TABLET BY MOUTH DAILY AT LEAST 30 MINUTES PRIOR TO BREAKFAST OR OTHER MEDS. 90 Tablet 3 07/07/2023 Active Levothyroxine Sodium 200 MCG Oral Tablet (Levoxyl)Indications :Postablative hypothyroidism TAKE 1 TABLET BY MOUTH DAILY AT LEAST 30 MINUTES PRIOR TO BREAKFAST OR OTHER MEDS. 90 Tablet 3 06/18/2022 3 Discontinue d(Refill) documented as of this encounter (statuses as of 07/07/2023) Active Problems Problem Noted Date Diagnosed Date TIA (transient ischemic attack) 08/15/2019 Hyperlipidemia, unspecified 08/15/2019 Migraine variant 08/15/2019 Severe obesity with body mas s index (BMI) of 35.0 to 39.9 with serious comorbidity 08/15/2019 Parotid mass 11/29/2018 Postablative hypothyroidism 10/15/2017 Other viral warts 02/23/2006 Overview: ICD-10 update of inactive term ADVANCE DIRECTIVE INFORMATION 01/07/2006 Overview: No, Advance Directive brochure offered , patient declined. LYMPHADENOPATHY, LEFT ELBOW 06/16/2005 Headache 06/16/2005 Overview: ICD-10 update of inactive term IMPACTED CERUMEN, RIGHT 11/02/2003 Otogenic pain 11/02/2003 INFEC OTITIS EXTERNA, LEFT 11/02/2003 ACUTE URI NOS 11/02/2003 Tobacco use disorder 11/02/2003 Other viral warts 03/02/2003 Overview: ICD-10 update of inactive term documented as of this encounter (statuses as of 07/07/2023) Resolved Problems Problem Noted Date Diagnosed Date Resolved Date Hypothyroidism 10/15/2017 documented as of this encounter (statuses as of 07/07/2023) Immunizations Name Administration Dates Next Due PPD 11/09/2016 documented as of this encounter Social History Tobacco Use Types Packs/Day Years Used Date Smoking Tobacco: Former Cigarettes 1 5 Smokeless Tobacco: Former Snuff Quit: 12/14/2022 Comments:began at age 23---q uit chewing Alcohol Use Standard Drinks/Week Comments No 0 (1 standard drink = 0.6 oz pur e alcohol) weekends only couple beer PHQ-2 Answer Date Recorded PHQ-2 Score 0 08/15/2019 Hunger Vital Sign Answer Date Recorded Within the past 12 months, y ou worried that your food would run out before you got the money to buy more. Never true 11/19/19 21 Within the past 12 months, t he food you bought just didn't last and you didn't have money to get more. Never true 11/18/2020 Sex and Gender Information Value Date Recorded Sex Assigned at Not on file Gender Identity Not on file Sexual Orientation Not on file Job Start Date Occupation Industry Not on file Not on file Not on file documented as of this encounter Functional Status Functional Status Response Date of Assess ment Are you deaf or do you have serious difficulty h earing? No 11/22/2018 Are you blind or do you have serious difficulty seeing, even when wearing glasses? No 11/22/2018 Do you have serious difficul ty walking or climbing stairs? (5 years old or older) No 11/22/2018 Do you have difficulty dress ing or bathing? (5 years old or older) No 11/22/2018 Because of a physical, menta l, or emotional condition, do you have difficulty doing errands alone such as visiting a doctor s office or shopping? (15 years old or older) No 11/23/19 19 Cognitive Status Response Date of Assessm ent Because of a physical, menta l, or emotional condition, do you have serious difficulty concentrating, remembering, or making decisions? (5 years old or older) No 11/22/2018 documented as of this encounter Progress Notes * Matthew Schroeder PA-C - 07/07/2023 8:01 AM EST Images from the original note were not included. History of Present Illness Jigar Hermosillo is a 48 year old male that presents for Follow Up. He tells me he is doing well with no complaints. Physical Exam There were no vitals filed for this visit. General: alert and no distress I have reviewed the following results: CMP, Lipid Panel, TSH, and CBC Assessment and Plan Postablative hypothyroidism TSH was normal, continue current dose. Refill sent to [facility] for him. - Levothyroxine Sodium 200 MCG Oral Tablet (Levoxyl); TAKE 1 TABLET BY MOUTH DAILY AT LEAST 30 MINUTES PRIOR TO BREAKFAST OR OTHER MEDS. - TSH WITH FREE T4 IF INDICATED; Future Hyperlipidemia, unspecified hyperlipidemia type Lipids were much improved, will continue to monitor. - COMPREHENSIVE METABOLIC PANEL; Future - LIPID PANEL WITH DIRECT LDL IF TG IS HIGH; Future Wrap-Up Follow Up: Return in about 6 months (around 01/06/2024) for Follow up with labs prior. | For: Followup with labs prior Telemedicine: Patient location: HOME. I was in a hospital or clinic location. After connecting through [employer],patient was verified with two unique identifiers. Patient (or authorized legal telecommunications sales representative) was then informed that this was a Telemedicine visit and being conducted confidentially over secure lines. Methods to assure confidentiality were taken. Patient acknowledged consent and understanding of pr ivacy and security of the Telemedicine visit. The patient agreed to participate. Matthew Schroeder PA-C documented in this encounter Plan of Treatment Scheduled Orders Name Type Priority Associated Diagnoses Orde r Schedule COMPREHENSIVE METABOLIC PANEL Lab Routine Hyperlipidemia, unspecified hyperlipidemia type Expected: 07/07/2023 (Approximate), Expires: 07/07/2024 LIPID PANEL WITH DIRECT LDL IF TG IS HIGH Lab Routine Hyperlipidemia, unspecified hyperlipidemia type Expected: 07/07/2023 (Approximate), Expires: 07/07/2024 TSH WITH FREE T4 IF INDICATED Lab Routine Postablative hypothyroidism Expected: 07/07/2023 (Approximate), Expires: 07/06/2024 Health Maintenance Due Date Last Done Comments Hepatitis B (1 of 3 - 3-dose series) 1975 COVID-19 Vaccine (#1) 1975 HIV Screening 1990 Hepatitis C Screening 1993 DTaP,Tdap,and Td Vaccines (1 - Tdap) 1994 Cologuard 01/04/2020 Colonoscopy 01/04/2020 Colorectal Cancer Screening 01/04/2020 Fecal Occult Blood Test 01/04/2020 Sigmoidoscopy 01/04/2020 Depression Screening 08/15/2020 08/15/2019 Influenza Vaccine (FLU shot) (#1) 2023 TSH 07/06/2024 07/06/2023, 06/0 03/2023, 05/25/2022, Additional history exists Diabetes Screening 07/06/2026 07/06/2023, 1 09/06/2022, 05/25/2022, Additional history exists GARDASIL-HPV IMMUNIZATION SERIES Aged Out No longer eligible based on patient's age to complete this topic MENINGOCOCCAL (MENACTRA/MENVEO) Aged Out No longer eligible based on patient's age to complete this topic Pneumococcal Vaccine: Pediatrics (0 to 5 Years) and At-Risk Patients (6 to 64 Years) Aged Out No longer eligible based on patient's age to complete this topic documented as of this encounter Medical Devices Not on filedocumented as of this encounter Visit Diagnoses Diagnosis Postablative hypothyroidism- Primary Other postablative hypothyroidism Hyperlipidemia, unspecified hyperlipidemia type documented in this encounter Advance Directives Latest Code Status on File Code Status Date Activated Date Inactivated Comments Full Code 11/22/2018 11:47 AM 11/23/2018 10:22 PM Question Answer Comments Discussion of Advance Direct ruy occurred with: Not Discussed Care Teams [employer] Barista Relationship Specialty Start Date End Date Matthew Schroeder PA-C [address] [place] [address] [place] [address] PCP - General Physician Regional Sales Manager 10/02/20 documented as of this encounter"
--- OUTSIDE RECORDS SUMMARY | 2023-12-12 19:15 | External Medical Summary ---
Author Name Unknown Address Unknown Organization [id number]:[facility] [place] [address] [place] [address] Laboratory Report Ordering Provider Test Date Status GISELE MARSHALL 07/06/2023 08:09:28 Final Observation Date Value Abnormality Reference (Units ) Status HbA1C 07/06/2023 08:09:28 5.5 4.0-5.6 (% ) Final The use of HbA1c to monitor glycemic status is based on normal hemoglobin and HbA composition. This test should not be used in patients with abnormal hemoglobin that affects the half life of the red blood cell or the in vivo glycation rates. Glucose, estimated average 07/06/2023 08:09:28 111 <126 (mg/dL) Final Performing Location [facility] [place] [address] [place] [address]
--- OUTSIDE RECORDS SUMMARY | 2023-12-12 19:15 | External Medical Summary | Summary of Care ---
Author Name Unknown Organization [facility] Address [address] [facility] [place] [address] Phone [phone] Care Team Providers Care Recovery Room Nurse Name Role Phone Matthew Schroeder PA-C Primary Care Provider [phone] Reason for Visit * Reason Comments Outpatient Testing Encounter Details Date Type Department Care Team ([facility] st Contact Info) Description 07/06/2023 8:20 AM EST [facility] [place] [place] [address] [place] [phone] [facility] [address] [place] [address] Hyperlipidemia, unspecified hyperlipidemia type; Severe obesity with body mass index (BMI) of 35.0 to 39.9 with serious comorbidity (HCC); Postablative hypothyroidism Allergies No known active allergiesdocumented as of this encounter (statuses as of 07/06/2023) Medications Medication Sig Dispensed Refills Start Date End Date Status Levothyroxine Sodium 200 MCG Oral Tablet (Levoxyl)Indications: Postablative hypothyroidism TAKE 1 TABLET BY MOUTH DAILY AT LEAST 30 MINUTES PRIOR TO BREAKFAST OR OTHER MEDS. 90 Tablet 3 06/18/2022 Active tiZANidine HCl 2 MG Oral Tablet (Zanaflex)Indications :Cervical radiculopathy Take 1 Tablet by mouth every 6 hours as needed for Muscle spasms. 15 Tablet 0 05/27/2023 Active methylPREDNISolone 4 MG Oral Tablet Therapy Pack (Medrol Dosepack)Indications: Cervical radiculopathy follow package directions 21 Tablet 0 05/27/2023 Active documented as of this encounter (statuses as of 07/06/2023) Active Problems Problem Noted Date Diagnosed Date [...] as of this encounter (statuses as of 07/06/2023) Resolved Problems Problem Noted Date Diagnosed Date Resolved Date Hypothyroidism 10/15/2017 documented as of this encounter (statuses as of 07/06/2023) Immunizations Name Administration Dates Next Due PPD [...] (15 years old or older) No 11/23/19 Cognitive Status Response Date of Assessm ent Because of a physical, menta l, or emotional condition, do you have serious difficulty concentrating, remembering, or making decisions? (5 years old or older) No 11/22/2018 documented as of this encounter Plan of Treatment Upcoming Encounters Date Type Department Care Team (Late st Contact Info) Description 07/07/2023 8:00 AM EST Telemedicine [address] [phone] Matthew Schroeder PA-C [address] [place] [address] Pending Results Name Type Priority Associated Diagnoses Date /Time COMPREHENSIVE METABOLIC PANEL Lab Routine Hyperlipidemia, unspecified hyperlipidemia type Severe obesity with body mass index (BMI) of 35.0 to 39.9 with serious comorbidity (HCC) 07/06/2023 8:09 AM EST HEMOGLOBIN A1C Lab Routine Severe obesity with body mass index (BMI) of 35.0 to 39.9 with serious comorbidity (HCC) 07/06/2023 8:09 AM EST LIPID PANEL WITH DIRECT LDL IF TG IS HIGH Lab Routine Hyperlipidemia, unspecified hyperlipidemia type 07/06/2023 8:09 AM EST TSH WITH FREE T4 IF INDICATED Lab Routine Postablative hypothyroidism 07/06/2023 8:09 AM EST Health Maintenance Due Date Last Done Comments Hepatitis B (1 of 3 - 3-dose series) 1975 COVID-19 Vaccine (#1) 1975 HIV Screening 1990 Hepatitis C Screening 1993 DTaP,Tdap,and Td Vaccines (1 - Tdap) 1994 Cologuard 01/04/2020 Colonoscopy 01/04/2020 Colorectal Cancer Screening 01/04/2020 Fecal Occult Blood Test 01/04/2020 Sigmoidoscopy 01/04/2020 Depression Screening 08/15/2020 08/15/2019 Influenza Vaccine (FLU shot) (#1) 2023 TSH 12/26/2023 12/25/2022, 11/0 01/2022, 12/05/2021, Additional history exists Diabetes Screening 05/25/2025 05/25/2022, 1 , 08/07/2019, Additional history exists GARDASIL-HPV IMMUNIZATION SERIES Aged [...] as of this encounter Visit Diagnoses Diagnosis Hyperlipidemia, unspecified hyperlipidemia type Severe obesity with body mass index (BMI) of 35.0 to 39.9 with serious comorbidity (HCC) Postablative hypothyroidism Other postablative hypothyroidism documented in this encounter Advance Directives Latest Code Status on File Code Status Date Activated Date Inactivated Comments Full Code 11/22/2018 11:47 AM 11/23/2018 10:22 PM Question Answer Comments Discussion of Advance Direct ruy occurred with: Not Discussed Care Teams Recovery Room Nurse Relationship Specialty Start Date End Date Matthew Schroeder PA-C [address] [place] [address] PCP - General Physician Wire Bound Box Machine Helper 10/02/20 documented as of this encounter
--- OUTSIDE RECORDS SUMMARY | 2023-12-12 19:15 | External Medical Summary ---
Author Name Unknown Address Unknown Organization K09:[facility] - [address] [place] [address] Laboratory Report Ordering Provider Test Date Status GISELE MARSHALL 07/06/2023 08:09:28 Final Observation Date Value Abnormality Reference (Units ) Status BUN 07/06/2023 08:09:28 19 6-20 (mg/dL) Final Creatinine 07/06/2023 08:09:28 0.9 0.6-1.2 (mg/dL) Final Glomerular filtration rate/1.73 sq M.predicted [Volume Rate/Area] in Serum, Plasma or Blood by Creatinine-based formula (CKD-EPI) 07/06/2023 08:09:28 >90 >=60 (mL/min) Final eGFR is calculated based on the CKD-EPI 2020 equation SODIUM 07/06/2023 08:09:28 139 135-146 (m mol/L) Final Potassium 07/06/2023 08:09:28 4.2 3.5-5.1 (m mol/L) Final Cl 07/06/2023 08:09:28 102 98-107 (mm ol/L) Final CO2 07/06/2023 08:09:28 25 22-32 (mmo l/L) Final Anion gap 07/06/2023 08:09:28 12 7-15 (mmol /L) Final Glucose 07/06/2023 08:09:28 82 70-120 (mg /dL) Final Albumin 07/06/2023 08:09:28 4.5 3.8-5.0 (g /dL) Final AST (Aspartate aminotransferase) 07/06/2023 08:09:28 20 10-50 (U/L) Final Alk Phos 07/06/2023 08:09:28 109 35-130 (U/ L) Final Bilirubin, Total 07/06/2023 08:09:28 0.4 <=1 .2 (mg/dL) Final Calcium 07/06/2023 08:09:28 9.4 8.4-10.2 ( mg/dL) Final Protein 07/06/2023 08:09:28 6.6 6.0-8.3 (g /dL) Final ALT (Alanine aminotransferase) 07/06/2023 08:09:28 15 10-50 (U/L) Final Performing Location [facility] [address] [place] [address]
--- OUTSIDE RECORDS SUMMARY | 2023-12-12 19:15 | External Medical Summary ---
Author Name Unknown Address Unknown Organization K01[place] [place] [address] [facility] [address] Laboratory Report Ordering Provider Test Date Status GISELE MARSHALL 07/06/2023 08:09:28 Final Observation Date Value Abnormality Reference (Units ) Status Triglyceride 07/06/2023 08:09:28 125 <=174 ( mg/dL) Final Triglyceride Reference Range s (mg/dL):
<150 Acceptable
150-174 Borderline high
175-499 High
>=500 Very high Cholesterol 07/06/2023 08:09:28 181 <200 (mg /dL) Final Total Cholesterol Reference Ranges (mg/dL):
<200 Desirable
200-239 Borderline high
>=240 High HDL 07/06/2023 08:09:28 40 >39 (mg/dL ) Final HDL Cholesterol Reference Ra nges (mg/dL):
>=60 High (Desirable)
<50 Low (Undesirable) For Females
<40 Low (Undesirable) For Males NON-HDL CHOLESTEROL 07/06/2023 08:09:28 141 <=159 (mg/dL) Final Non-HDL Cholesterol Referenc e Range (mg/dL):
<100 Target level for high risk ASCVD patient
<130 Optimal for general population
130-159 Near optimal for general population
160-189 Borderline High
190-219 High
>=220 Very High LDL, (calculated) 07/06/2023 08:09:28 116 <= 129 (mg/dL) Final LDL Cholesterol Reference Ra nges (mg/dL):
<70 Target level for high risk ASCVD patient
<100 Optimal for general population
100-129 Near optimal for general population
130-159 Borderline high
160-189 High
>=190 Very high Performing Location [facility] [place] [address] [facility] [address]
--- OUTSIDE RECORDS SUMMARY | 2023-12-12 19:15 | External Medical Summary | Summary of Care ---
Author Name Unknown Organization [facility] Address [address] [facility] [place] [address] Phone [phone] Care Team Providers Care Proof Coins Inspector Name Role Phone Matthew Schroeder PA-C Primary Care Provider [phone] Reason for Visit * Reason Comments Outpatient Testing Encounter Details Date Type Department Care Team ([facility] st Contact Info) Description 07/05/2023 8:30 AM EST Laboratory Laboratory [facility] [address] [place] [phone] [facility] [address] [facility] [place] [address] Canceled (Music Specialist Error) Allergies No known active allergiesdocumented as of this encounter (statuses as of 07/05/2023) Medications Medication Sig Dispensed Refills Start Date [...] as of this encounter (statuses as of 07/05/2023) Active Problems Problem Noted Date Diagnosed Date [...] as of this encounter (statuses as of 07/05/2023) Resolved Problems Problem Noted Date Diagnosed Date Resolved Date Hypothyroidism 10/15/2017 documented as of this encounter (statuses as of 07/05/2023) Immunizations Name Administration Dates Next Due PPD [...] Upcoming Encounters Date Type Department Care Team ([facility] Contact Info) Description 07/07/2023 8:00 AM EST Office Visit [address] [phone] Matthew Schroeder PA-C [address] [place] [address] Health Maintenance Due Date Last Done Comments [...] Not on filedocumented as of this encounter Advance Directives Latest Code Status on File Code Status Date Activated Date Inactivated Comments Full Code 11/22/2018 11:47 AM 11/23/2018 10:22 PM Question Answer Comments Discussion of Advance Direct ruy occurred with: Not Discussed Care Teams Proof Coins Inspector Relationship Specialty Start Date End Date Matthew Schroeder PA-C [address] [place], [place] [address] [place] [address] PCP - General Physician Inspector Clip On Sunglasses 10/02/20 documented as of this encounter
--- OUTSIDE RECORDS SUMMARY | 2023-12-12 19:15 | External Medical Summary ---
Author Name Unknown Address Unknown Organization [id number]:[facility] [place] [address] [facility] [address] Laboratory Report Ordering Provider Test Date Status GISELE MARSHALL 07/06/2023 08:09:28 Final Observation Date Value Abnormality Reference (Units ) Status TSH 07/06/2023 08:09:28 2.67 0.27-4.20 (uIU/mL) Final Performing Location LABORATORY [facility] - [address] [facility] [address]
--- OUTSIDE RECORDS SUMMARY | 2023-12-12 19:15 | External Medical Summary | Summary of Care ---
Author Name Unknown Organization [facility] Address [address] [place] [address] Phone [phone] Care Team Providers Care Tube Winder Hand Name Role Phone Matthew Schroeder PA-C Primary Care Provider [phone] Encounter Details Date Type Department Care Team ([facility] Contact Info) Description 07/05/2023 Orders Only Family Practice [facility] [address] [place] [phone] Matthew Schroeder PA-C [address] [place] [address] Hyperlipidemia, unspecified hyperlipidemia type*; Severe obesity with body mass index (BMI) [...] Upcoming Encounters Date Type Department Care Team ([facility] st Contact Info) Description 07/07/2023 8:00 AM EST Office Visit [address] [phone] Matthew Schroeder PA-C [address] [place] [address] Scheduled Orders Name Type Priority Associated Diagnoses Orde r Schedule COMPREHENSIVE METABOLIC PANEL Lab Routine Hyperlipidemia, unspecified hyperlipidemia type Severe obesity with body mass index (BMI) of 35.0 to 39.9 with serious comorbidity (HCC) Expected: 07/05/2023 (Approximate), Expires: 07/05/2024 HEMOGLOBIN A1C Lab Routine Severe obesity with body mass index (BMI) of 35.0 to 39.9 with serious comorbidity (HCC) Expected: 07/05/2023 (Approximate), Expires: 07/05/2024 LIPID PANEL WITH DIRECT LDL IF TG IS HIGH Lab Routine Hyperlipidemia, unspecified hyperlipidemia type Expected: 07/05/2023 (Approximate), Expires: 07/05/2024 TSH WITH FREE T4 IF INDICATED Lab Routine Postablative hypothyroidism Expected: 07/05/2023 (Approximate), Expires: 07/04/2024 Health Maintenance Due Date Last Done Comments Hepatitis B (1 of 3 - 3-dose series) 1975 COVID-19 Vaccine (#1) 1975 HIV Screening 1990 Hepatitis C Screening 1993 DTaP,Tdap,and Td Vaccines (1 - Tdap) 1994 Cologuard 01/04/2020 Colonoscopy 01/04/2020 Colorectal Cancer Screening 01/04/2020 Fecal Occult Blood Test 01/04/2020 Sigmoidoscopy 01/04/2020 Depression Screening 08/15/2020 08/15/2019 Influenza Vaccine (FLU shot) (#1) 2023 TSH 12/26/2023 12/25/2022, 01/2022, 12/05/2021, Additional history exists Diabetes Screening [...] encounter Visit Diagnoses Diagnosis Hyperlipidemia, unspecified hyperlipidemia type- Primary Severe obesity with body mass index (BMI) of 35.0 to 39.9 with serious comorbidity (HCC) Postablative hypothyroidism Other postablative hypothyroidism documented in this encounter Advance Directives Latest Code Status on File Code Status Date Activated Date Inactivated Comments Full Code 11/22/2018 11:47 AM 11/23/2018 10:22 PM Question Answer Comments Discussion of Advance Direct ruy occurred with: Not Discussed Care Teams Tube Winder Hand Relationship Specialty Start Date End Date Matthew Schroeder PA-C [address] [place] [address] [place] [address] PCP - General Physician Revenue Director 10/02/20 documented as of this encounter
--- NOTE | 2023-12-12 19:33 | Emergency Department Note ---
Impression & Plan Leukocytosis, Cellulitis, Fever ED Provider Note NAME: HUBERT GERMAN AGE: 48 SEX: M : 1975 ARRIVES VIA: Walk-In INFORMANT: Patient ED PROVIDER(S): Dallin Mares DO CHIEF COMPLAINT: Nausea vomiting HPI: Patient is a 40-year-old male with a past medical history of cellulitis, CVA, hypothyroidism who presents to the ER for nausea vomiting which started earlier today. He has been unable to keep anything down. He admits to feeling hot and cold. Denies any chest pain or shortness of breath. No cough or congestion. No dysuria, urgency, or frequency. He admits to lower lumbar midline spine pain which has been present for the past 3 years off and on. He notes this feels like it is typical lower back pain and unchanged in any way. No recent surgeries. No spinal surgeries. Denies IV drug use, dialysis, or any recent interventions. No weakness or numbness in the legs. No other exacerbating or remitting factors. ADDITIONAL HISTORY OBTAINED: Per HPI Chronic Medical/Social Conditions Affecting Care: Per HPI PAST MEDICAL HISTORY:See Below PAST SURGICAL HISTORY:See Below FAMILY HISTORY:See Below SOCIAL HISTORY:See Below HOME MEDICATIONS:See Below ALLERGIES:See Below VITALS:See Below PHYSICAL EXAMINATION: GENERAL: Sitting up in bed, alert, well appearing, well nourished, no distress, non-toxic EYE EXAM: normal conjunctiva. PERRL and EOM's grossly intact. OROPHARYNX: no exudate, no erythema, lips, buccal mucosa, and tongue normal and mucous membranes are moist NECK: supple, no nuchal rigidity, no adenopathy, non-tender LUNGS: Clear to auscultation. Normal chest wall mechanics HEART: no murmurs, S1 normal and S2 normal ABDOMEN: abdomen soft, non-tender, normo-active bowel sounds, no masses, no rebound or guarding. BACK: Back is symmetrical on inspection and there is no deformity, no midline tenderness, no CVA tenderness. SKIN: no rashes and no bruising UPPER EXTREMITIES: upper extremities are grossly normal. LOWER EXTREMITIES: Calves are equal bilateral. Erythema over the right anterior salazar tracking up towards the knee NEURO EXAM: Normal sensorium, cranial nerves II-XII grossly intact, normal speech, no gross weakness of arms, no gross weakness of legs. No drift. Finger to nose intact. Gross sensation intact. MEDICAL DECISION MAKING: Patient is a 48-year-old male who presents ER for above-stated complaint. IV was established blood work was obtained. Labs show leukocytosis of nearly 20,000. No significant anemia. BMP on LFTs bilirubin lipase is unremarkable. Right lower extremity has an area of erythema which is warm and tender to palpation. Do favor consistent with a cellulitis. Patient was given IV antibiotics. Updated bedside. CT abdomen pelvis showed no acute pathology. With the leukocytosis, chills and mild hypotension with systolic pressures in the 90s which did improve with IV fluids patient was discussed with the hospitalist for further evaluation management treatment. Consults/Care Managements Discussions: Per MDM Triage Nursing notes reviewed. Limited review of prior medical records performed Vital Signs: reviewed and remarkable for no significant abnormalities Differential diagnosis: Differential diagnosis: Etiologies such as viral syndrome, otitis, pharyngitis, pneumonia, influenza, meningitis, urinary tract infection, sepsis, bacteremia, as well as others were entertained. ER treatment provided: See below Diagnostics interpreted by me include EKG and cardiac monitoring as listed below: -Cardiac Monitoring: An order was placed for continuous cardiac monitoring. The monitor shows a rate of 90 with sinus rhythm. -ECG: none -Laboratory studies:Interpreted by me as stated above in MDM and shown below. 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 Acute pharyngitis (Acute) Cellulitis (Acute) Hyperthyroidism (Acute) Pneumonia (Acute) Thrombophlebitis of right leg (Acute) Pharyngitis Pneumonia Acute cerebrovascular accident (CVA) (Acute) Left ACL tear Tear of medial collateral ligament of right knee Admitted to intensive care unit Left-sided weakness Acute CVA (cerebrovascular accident) Hypothyroidism PCL deficiency, knee Right knee DJD Hyperthyroidism Medical History GERD (gastroesophageal reflux disease) Sleep apnea Encounter for pre-operative examination History of COVID-19 History of CVA (cerebrovascular accident) History of benign neoplasm of salivary gland H/O Graves' disease Hyperthyroidism Surgical History S/P patent foramen ovale closure Hx of arthroscopy of right knee History of repair of ACL History of arthroplasty of right shoulder Family History Other No family history of adverse response to anesthesia Social History Smoking Status: Never smoker Second Hand Exposure: No; Do You Dip or Chew Tobacco: Yes (ADVISED); Hx Alcohol Use: Yes Alcohol type: beer Hx Substance Use: No Preferred Language: Ivorian Communication Ability: Effective 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 Beliefs That Will Affect Care: None marital status: Single Current Living Situation: Alone Feels Safe at Home: Yes Assistive Devices: None Allergies Allergies Allergy/AdvReac Type Severity Reaction Status Date / Time No Known Allergies Allergy Verified 12/12/23 20:43 Home Meds Home Medications Medication Instructions Recorded Confirmed acetaminophen 500 mg capsule 1,000 mg PO DIRECTED PRN Pain 12/12/23 12/12/23 levothyroxine 200 mcg tablet 200 mcg PO DAILYBB 12/12/23 12/12/23 (Synthroid) sildenafil 100 mg tablet 100 mg PO DIRECTED PRN Sexual 12/12/23 12/12/23 Activity Results & Data (ED) Vital Signs Vital Signs - 24 hr 12/12/23 19:11 12/12/23 19:24 12/12/23 19:51 Temperature 36.3 C L Temperature Source Temporal Artery Scan Pulse Rate 93 H 79 Pulse Rate [Apical] 82 Pulse Rhythm Regular Pulse Strength Normal Respiratory Rate 18 14 14 Respiratory Effort / Characteristics Non-Labored Spontaneous Respiratory Depth Normal Respiratory Pattern Regular Blood Pressure 108/71 Blood Pressure [Left Arm] 128/83 Blood Pressure Mean 83 Blood Pressure Mean [Left Arm] 98 Blood Pressure Position Sitting Pulse Oximetry 96 94 96 Oxygen Delivery Method Room Air Room Air Room Air Sepsis Recent Fever Within 48 Hours No Sepsis New/Unexplained Change in Mental Status No Sepsis Action Taken by Nursing No Action Required 12/12/23 20:20 12/12/23 21:00 12/12/23 22:00 Temperature Temperature Source Pulse Rate Pulse Rate [Apical] 67 72 71 Pulse Rhythm Pulse Strength Respiratory Rate 15 14 19 Respiratory Effort / Characteristics Respiratory Depth Respiratory Pattern Blood Pressure Blood Pressure [Left Arm] 106/69 95/68 L 112/69 Blood Pressure Mean Blood Pressure Mean [Left Arm] 81 77 83 Blood Pressure Position Pulse Oximetry 95 95 98 Oxygen Delivery Method Room Air Room Air Room Air Sepsis Recent Fever Within 48 Hours Sepsis New/Unexplained Change in Mental Status Sepsis Action Taken by Nursing 12/12/23 23:00 12/13/23 00:00 Temperature Temperature Source Pulse Rate Pulse Rate [Apical] 73 70 Pulse Rhythm Pulse Strength Respiratory Rate 14 21 Respiratory Effort / Characteristics Respiratory Depth Respiratory Pattern Blood Pressure Blood Pressure [Left Arm] 107/74 116/77 Blood Pressure Mean Blood Pressure Mean [Left Arm] 85 90 Blood Pressure Position Pulse Oximetry 98 99 Oxygen Delivery Method Room Air Room Air Sepsis Recent Fever Within 48 Hours Sepsis New/Unexplained Change in Mental Status Sepsis Action Taken by Nursing Laboratory Data 12/12/23 19:30 12/12/23 19:30 Lab Results 12/12/23 12/12/23 Range/Units 19:30 20:40 WBC 19.91 H (4.8-10.8) K/ul RBC 4.76 (4.70-6.10) M/uL Hgb 14.9 (14.0-18.0) g/dl Hct 44.6 (42.0-52.0) % MCV 93.7 (80.0-100.0) fL MCH 31.3 (25.0-34.0) pg MCHC 33.4 (32.0-36.0) g/dL RDW Std Deviation 44.6 (36.4-46.3) fL RDW Coeff of Gabriel 12.9 (11.5-14.5) % Plt Count 209 (130-400) K/uL MPV 9.8 (9.4-12.4) fL Immature Gran % (Auto) 0.9 % Neut % (Auto) 90.8 % Lymph % (Auto) 3.5 % Robertson % (Auto) 3.9 % Eos % (Auto) 0.6 % Baso % (Auto) 0.3 % Neut # (Auto) 18.11 H (1.40-6.50) K/uL Lymph # (Auto) 0.69 L (1.20-3.40) K/uL Robertson # (Auto) 0.77 H (0.11-0.59) K/uL Eos # (Auto) 0.12 (0.00-0.50) K/uL Baso # (Auto) 0.05 (0.00-0.20) K/uL Immature Gran # (Auto) 0.17 (0.01-0.20) K/uL Sodium 136 (136-145) mmol/L Potassium 3.8 (3.5-5.1) mmol/L Chloride 103 (98-107) mmol/L Carbon Dioxide 25 (21-32) mmol/L Anion Gap 8 (3-11) BUN 18 (6-23) mg/dl Creatinine 1.06 (0.6-1.4) mg/dl Est Cr Clr Drug Dosing 119.7 ml/min Est GFR ( Amer) 95.7 ml/min Est GFR (Non-Af Amer) 82.6 ml/min BUN/Creatinine Ratio 17.0 (10-20) Glucose 110 H (70-99(Fasting)) mg/dl Lactate 1.1 (0.4-2.0) mmol/L Calcium 9.1 (8.6-10.3) mg/dl Total Bilirubin 1.0 (0.2-1.0) mg/dl AST 17 (13-39) U/L ALT 10 (7-52) U/L Alkaline Phosphatase 83 (34-104) U/L Total Protein 7.0 (6.0-8.3) gm/dl Albumin 4.3 (3.4-5.0) gm/dl Globulin 2.7 (2.5-4.0) gm/dl Albumin/Globulin Ratio 1.6 (0.9-2) Lipase 11 (11-82) U/L Administered Medications Discontinued Medications Sodium Chloride (Nss) 1,000 mls @ 999 mls/hr IV .Q1H1M ONE Stop: 12/12/23 20:27 Last Infusion: 12/12/23 20:53 Dose: Infused Documented By: Admin: 12/12/23 19:52 Dose: 999 mls/hr Documented By: MAX Ceftriaxone Sodium (Rocephin) 2,000 mg in 50 mls @ 100 mls/hr IV NOW STA Stop: 12/12/23 20:01 Last Infusion: 12/12/23 20:21 Dose: Infused Documented By: Admin: 12/12/23 19:51 Dose: 100 mls/hr Documented By: MAX Ioversol (Optiray 320 100ml) 90 ml IV ONCE ONE Stop: 12/12/23 20:27 Last Admin: 12/12/23 20:26 Dose: 90 ml Documented By: MARISOL Ketorolac Tromethamine (Ketorolac Tromethamine 15 Mg/Ml Vial) 15 mg IV NOW ONE Stop: 12/12/23 19:28 Last Admin: 12/12/23 19:52 Dose: 15 mg Documented By: MAX Imaging Data Radiologist's Impression: Abdomen/Pelvis CT 12/12/23 19:28 Exam(s): CT ABDOMEN + PELVIS With Contrast IV Amt: OPTIRAY 320 90ML EXAM: CT Abdomen and Pelvis With Intravenous Contrast CLINICAL HISTORY: Reason for exam: abd pain n/v. TECHNIQUE: Axial computed tomography images of the abdomen and pelvis with intravenous contrast. CTDI is 28.14 mGy and DLP is 1570.18 mGy-cm. Automated exposure control was utilized for the study. A dose lowering technique was utilized adhering to the principles of ALARA. CONTRAST: Patient received OPTIRAY 320 90ML of IV contrast COMPARISON: No relevant prior studies available. FINDINGS: Lung bases: Unremarkable. No mass. No consolidation. ABDOMEN: Liver: Mild fatty infiltration of the liver. No focal liver mass lesion is seen. Gallbladder and bile ducts: Unremarkable. No calcified stones. No ductal dilation. Pancreas: Unremarkable. No mass. No ductal dilation. Spleen: Unremarkable. No splenomegaly. Adrenals: Chronic calcification is on the right. No mass. Kidneys and ureters: Unremarkable. No solid mass. No hydronephrosis. Stomach and bowel: Unremarkable. No obstruction. No mucosal thickening. PELVIS: Appendix: The appendix is normal. Bowel loops are nondilated. No acute inflammatory changes are seen involving the bowel. Bladder: Unremarkable. No mass. Reproductive: Unremarkable as visualized. ABDOMEN and PELVIS: Intraperitoneal space: Unremarkable. No free air. No significant fluid collection. Bones/joints: Mild degenerative changes in the spine. No fracture or subluxation. Soft tissues: Incidental note is made of a 3 cm fat-containing left inguinal hernia without signs of acute inflammation. Vasculature: Unremarkable. No abdominal aortic aneurysm. Lymph nodes: Right inguinal lymphadenopathy measuring 1.4 cm short axis diameter. This is nonspecific. IMPRESSION: 1. Right inguinal lymphadenopathy measuring 1.4 cm short axis diameter. This is nonspecific. 2. The appendix is normal. Bowel loops are nondilated. No acute inflammatory changes are seen involving the bowel. No acute intraperitoneal process is identified. Electronically signed by: Pietro Bañuelos MD 12/12/23 23:45 PM Discharge Plan Visit Data Chief Complaint: Dehydration Stated Complaint: DEHYDRATION/BACK PAIN/NAUSEA ED Provider: Dallin Mares Discharge Problem: Leukocytosis, Cellulitis, Fever Forms Stand Alone Forms: [facility] Prescriptions Prescriptions: No Action levothyroxine [Synthroid] 200 mcg tablet 200 mcg PO DAILYBB acetaminophen 500 mg capsule 1,000 mg PO DIRECTED PRN (Reason: Pain) sildenafil 100 mg tablet 100 mg PO DIRECTED PRN (Reason: Sexual Activity) Referrals Referrals: Matthew Schroeder PA-C [Primary Care Provider] - Discharge Problem: Leukocytosis Qualifiers: Leukocytosis type: unspecified Qualified Code(s): D72.829 - Elevated white blood cell count, unspecified Cellulitis Qualifiers: Site of cellulitis: unspecified site Qualified Code(s): L03.90 - Cellulitis, unspecified Fever Qualifiers: Fever type: unspecified Qualified Code(s): R50.9 - Fever, unspecified
[2023-12-12 19:50] LABS: Hematocrit (blood only) 44.6 % (42.0-52.0); Hemoglobin 14.9 g/dl (14.0-18.0); Mean Corpuscular Hemoglobin 31.3 pg (25.0-34.0); Mean Corpuscular Hgb Conc 33.4 g/dL (32.0-36.0); Mean Corpuscular Volume 93.7 fL (80.0-100.0); Mean Platelet Volume 9.8 fL (9.4-12.4); Platelet Count 209 K/uL (130-400); RDW Coefficient of Variation 12.9 % (11.5-14.5); RDW Standard Deviation 44.6 fL (36.4-46.3); Red Blood Count 4.76 M/uL (4.70-6.10); White Blood Count 19.91 K/ul (4.8-10.8)
[2023-12-12] MEDS: cefTRIAXone SODIUM 2,000 MG/50 ML BAG IV STA (19:51)
[2023-12-12] MEDS: KETOROLAC TROMETHAMINE 15 MG/ML VIAL IV ONE (19:52)
[2023-12-12] MEDS: SODIUM CHLORIDE 0.9% 1,000 ML IV ONE (19:52)
[2023-12-12 20:07] LABS: Albumin Globulin Ratio 1.6 (0.9-2); Albumin Level 4.3 gm/dl (3.4-5.0); Calcium 9.1 mg/dl (8.6-10.3); Creatinine Clr Calc Pharmacy 119.7 ml/min; Est GFR (African American) 95.7 ml/min; Est GFR (Non-African American) 82.6 ml/min; Globulin 2.7 gm/dl (2.5-4.0); Potassium 3.8 mmol/L (3.5-5.1)
[2023-12-12] MEDS: OPTIRAY 320 100ml IV ONE (20:26)
[2023-12-12 20:35] LABS: Basophils # (auto) 0.05 K/uL (0.00-0.20); Basophils % (auto) 0.3 %; Eosinophils # (auto) 0.12 K/uL (0.00-0.50); Eosinophils % (auto) 0.6 %; Immature Granulocytes # (auto) 0.17 K/uL (0.01-0.20); Immature Granulocytes % (auto) 0.9 %; Lymphocytes # (auto) 0.69 K/uL (1.20-3.40); Lymphocytes % (auto) 3.5 %; Monocytes # (auto) 0.77 K/uL (0.11-0.59); Monocytes % (auto) 3.9 %; Neutrophils # (auto) 18.11 K/uL (1.40-6.50); Neutrophils % (auto) 90.8 %
--- NOTE | 2023-12-12 23:46 | CT Scan Report ---
Exam(s): CT ABDOMEN + PELVIS With Contrast IV Amt: OPTIRAY 320 90ML EXAM: CT Abdomen and Pelvis With Intravenous Contrast CLINICAL HISTORY: Reason for exam: abd pain n/v. TECHNIQUE: Axial computed tomography images of the abdomen and pelvis with intravenous contrast. CTDI is 28.14 mGy and DLP is 1570.18 mGy-cm. Automated exposure control was utilized for the study. A dose lowering technique was utilized adhering to the principles of ALARA. CONTRAST: Patient received OPTIRAY 320 90ML of IV contrast COMPARISON: No relevant prior studies available. FINDINGS: Lung bases: Unremarkable. No mass. No consolidation. ABDOMEN: Liver: Mild fatty infiltration of the liver. No focal liver mass lesion is seen. Gallbladder and bile ducts: Unremarkable. No calcified stones. No ductal dilation. Pancreas: Unremarkable. No mass. No ductal dilation. Spleen: Unremarkable. No splenomegaly. Adrenals: Chronic calcification is on the right. No mass. Kidneys and ureters: Unremarkable. No solid mass. No hydronephrosis. Stomach and bowel: Unremarkable. No obstruction. No mucosal thickening. PELVIS: Appendix: The appendix is normal. Bowel loops are nondilated. No acute inflammatory changes are seen involving the bowel. Bladder: Unremarkable. No mass. Reproductive: Unremarkable as visualized. ABDOMEN and PELVIS: Intraperitoneal space: Unremarkable. No free air. No significant fluid collection. Bones/joints: Mild degenerative changes in the spine. No fracture or subluxation. Soft tissues: Incidental note is made of a 3 cm fat-containing left inguinal hernia without signs of acute inflammation. Vasculature: Unremarkable. No abdominal aortic aneurysm. Lymph nodes: Right inguinal lymphadenopathy measuring 1.4 cm short axis diameter. This is nonspecific. IMPRESSION: 1. Right inguinal lymphadenopathy measuring 1.4 cm short axis diameter. This is nonspecific. 2. The appendix is normal. Bowel loops are nondilated. No acute inflammatory changes are seen involving the bowel. No acute intraperitoneal process is identified. Electronically signed by: Pietro Bañuelos MD 12/12/23 23:45 PM
--- NOTE | 2023-12-13 02:22 | History & Physical Report ---
Date of Service December 13, 2023 Assessment & Plan (1) Cellulitis: Plan: 42-year-old male with past medical history significant for postablative hypothyroidism, history of TIA, obesity, history of viral warts, history of headaches , migraines, tobacco use disorder, presents with nausea, vomiting and severe headaches. Patient states today when he was in the shower he had several episodes of nausea and vomiting. The nausea has resolved. But had a lot of hea daches. feeling hot and cold. No cough. No runny nose. No sore throat. Currently no earaches. Did not eat much. No diarrhea. Did not micturate much.. No abdominal pain. Denies any tick bites. Hemodynamics are okay. Cellulitis right lower leg lactic is okay. WBC 19. Currently afebrile hemodynamics okay ER gave Rocephin will do Rocephin and Doxy and fluids follow cultures follow tickborne illness labs nausea and vomiting currently resolved full liquid diet for now antiemetics as needed CT abdomen pelvis with IV contrast shows nonspecific right inguinal lymphadenopathy 1.4 cm otherwise unremarkable hypothyroidism on Synthyroid follow TSH DVT prophylaxis Lovenox disposition medical floor full code History of Present Illness Chief Complaint: nausea vomiting and headaches Primary Care Provider: Matthew Schroeder PA-C 42-year-old male with past medical history significant for postablative hypothyroidism, history of TIA, obesity, history of viral warts, history of headaches , migraines, tobacco use disorder, presents with nausea, vomiting and severe headaches. Patient states today when he was in the shower he had several episodes of nausea and vomiting. The nausea has resolved. But had a lot of headaches. feeling hot and cold. No cough. No runny nose. No sore throat. Currently no earaches. Did not eat much. No diarrhea. Did not micturate much.. No abdominal pain. Denies any tick bites. Hemodynamics are okay. past medical history. As mentioned above past surgical history. Nasal surgery. Surgery x 2 to right hand. 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 Repair of new ligament. Shoulder surgery. Social history. Smoked 1 pack a day for 5 years. Quit in 2022. Alcohol Couple of beers on the weekends. no drug use. Family history. Father had heart disorder. Mother had thyroid disorder. Allergies Allergy/AdvReac Type Severity Reaction Status Date / Time No Known Allergies Allergy Verified 12/12/23 20:43 Home Medications Medication Instructions Recorded Confirmed Type acetaminophen 500 mg capsule 1,000 mg PO DIRECTED PRN Pain 12/12/23 12/12/23 History levothyroxine 200 mcg tablet 200 mcg PO DAILYBB 12/12/23 12/12/23 History (Synthroid) sildenafil 100 mg tablet 100 mg PO DIRECTED PRN Sexual 12/12/23 12/12/23 History Activity Past Med/Surg History Problem List (Updated 12/13/23 @ 00:25 by Dallin Mares DO) Fever (Acute) Cellulitis (Acute) Leukocytosis (Acute) Right leg swelling 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 Acute pharyngitis (Acute) Cellulitis (Acute) Hyperthyroidism (Acute) Pneumonia (Acute) Thrombophlebitis of right leg (Acute) Pharyngitis Pneumonia Acute cerebrovascular accident (CVA) (Acute) Left ACL tear Tear of medial collateral ligament of right knee Admitted to intensive care unit Left-sided weakness Acute CVA (cerebrovascular accident) Hypothyroidism PCL deficiency, knee Right knee DJD Hyperthyroidism Medical History GERD (gastroesophageal reflux disease) Sleep apnea Encounter for pre-operative examination History of COVID-19 History of CVA (cerebrovascular accident) History of benign neoplasm of salivary gland H/O Graves' disease Hyperthyroidism Surgical History S/P patent foramen ovale closure Hx of arthroscopy of right knee History of repair of ACL History of arthroplasty of right shoulder Family History Other No family history of adverse response to anesthesia Social History Smoking Status: Never smoker Second Hand Exposure: No; Do You Dip or Chew Tobacco: Yes; Hx Alcohol Use: Yes Alcohol type: hard liquor Hx Substance Use: No Preferred Language: German Communication Ability: Effective Coat Joiner Required: No Beliefs That Will Affect Care: None marital status: Single Current Living Situation: Alone Feels Safe at Home: Yes Assistive Devices: None Review of Systems Review of Systems: All systems reviewed & are unremarkable except as noted in HPI & below Physical Exam Physical Exam: General- Not in distress Head- atraumatic Eyes- PERRL. ENT- oropharynx clear Neck- supple, no JVD. Lungs- clear to auscultation no wheezing or crackles. Heart- regular rhythm; no murmur, no gallop. Abdomen- normal bowel sounds, soft, nontender, no distension. Extremities- no pretibial edema, erythematous rash seen on right lower extremity from ankle to salazar region. Neuro- alert, oriented; PERRL, no facial palsy; no dysarthria; moves extremities. Skin- erythematous rash seen on right lower extremity from ankle to salazar region. Results & Data Results & Data Vital Signs (Past 12 Hours) Vital Signs Temp Pulse Pulse Resp BP BP Pulse Ox 12/13/23 01:00 98 H 12/13/23 00:00 70 21 116/77 99 12/12/23 23:00 73 14 107/74 98 12/12/23 22:00 71 19 112/69 98 12/12/23 21:00 72 14 95/68 L 95 12/12/23 20:20 67 15 106/69 95 12/12/23 19:51 79 14 96 12/12/23 19:24 82 14 128/83 94 12/12/23 19:11 36.3 C L 93 H 18 108/71 96 O2 Del Method 12/13/23 01:00 12/13/23 00:00 Room Air 12/12/23 23:00 Room Air 12/12/23 22:00 Room Air 12/12/23 21:00 Room Air 12/12/23 20:20 Room Air 12/12/23 19:51 Room Air 12/12/23 19:24 Room Air 12/12/23 19:11 Room Air Diagnostic Findings Laboratory Results WBC 19.91 K/ul (4.8-10.8) H 12/12/23 19:30 RBC 4.76 M/uL (4.70-6.10) 12/12/23 19:30 Hgb 14.9 g/dl (14.0-18.0) 12/12/23 19:30 Hct 44.6 % (42.0-52.0) 12/12/23 19:30 MCV 93.7 fL (80.0-100.0) 12/12/23 19: MCH 31.3 pg (25.0-34.0) 12/12/23 19: MCHC 33.4 g/dL (32.0-36.0) 12/12/23 19: RDW Std Deviation 44.6 fL (36.4-46.3) 12/12/23: RDW Coeff of Gabriel 12.9 % (11.5-14.5) 12/12/23: Plt Count 209 K/uL (130-400) 12/12/23: MPV 9.8 fL (9.4-12.4) 12/12/23: Immature Gran % (Auto) 0.9 % 12/12/23: Neut % (Auto) 90.8 % 12/12/23: Lymph % (Auto) 3.5 % 12/12/23: Sheridan % (Auto) 3.9 % 12/12/23: Eos % (Auto) 0.6 % 12/12/23 19: Baso % (Auto) 0.3 % 12/12/23 19:30 Neut # (Auto) 18.11 K/uL (1.40-6.50) H 12/12/23 19: Lymph # (Auto) 0.69 K/uL (1.20-3.40) L 12/12/23:30 Sheridan # (Auto) 0.77 K/uL (0.11-0.59) H 12/12/23 19: Eos # (Auto) 0.12 K/uL (0.00-0.50) 12/12/23 19: Baso # (Auto) 0.05 K/uL (0.00-0.20) 12/12/23: Immature Gran # (Auto) 0.17 K/uL (0.01-0.20) 12/12/23 19:30 Sodium 136 mmol/L (136-145) 12/12/23: Potassium 3.8 mmol/L (3.5-5.1) 12/12/23: Chloride 103 mmol/L (98-107) 12/12/23: Carbon Dioxide 25 mmol/L (21-32) 12/12/23 19:30 Anion Gap 8 (3-11) 12/12/23 19:30 BUN 18 mg/dl (6-23) 12/12/23 19:30 Creatinine 1.06 mg/dl (0.6-1.4) 12/12/23 19:30 Est Cr Clr Drug Dosing 119.7 ml/min 12/12/23 19:30 Est GFR ( Amer) 95.7 ml/min 12/12/23 19:30 Est GFR (Non-Af Amer) 82.6 ml/min 12/12/23 19:30 BUN/Creatinine Ratio 17.0 (10-20) 12/12/23 19:30 Glucose 110 mg/dl (70-99(Fasting)) H 12/12/23 19:30 Lactate 1.1 mmol/L (0.4-2.0) 12/12/23 20:40 Calcium 9.1 mg/dl (8.6-10.3) 12/12/23 19:30 Total Bilirubin 1.0 mg/dl (0.2-1.0) 12/12/23 19:30 AST 17 U/L (13-39) 12/12/23 19:30 ALT 10 U/L (7-52) 12/12/23 19:30 Alkaline Phosphatase 83 U/L (34-104) 12/12/23 19:30 Total Protein 7.0 gm/dl (6.0-8.3) 12/12/23 19:30 Albumin 4.3 gm/dl (3.4-5.0) 12/12/23 19:30 Globulin 2.7 gm/dl (2.5-4.0) 12/12/23 19:30 Albumin/Globulin Ratio 1.6 (0.9-2) 12/12/23 19:30 Lipase 11 U/L (11-82) 12/12/23 19:30 Impressions Abdomen/Pelvis CT 12/12/23 19:28 Exam(s): CT ABDOMEN + PELVIS With Contrast IV Amt: OPTIRAY 320 90ML EXAM: CT Abdomen and Pelvis With Intravenous Contrast CLINICAL HISTORY: Reason for exam: abd pain n/v. TECHNIQUE: Axial computed tomography images of the abdomen and pelvis with intravenous contrast. CTDI is 28.14 mGy and DLP is 1570.18 mGy-cm. Automated exposure control was utilized for the study. A dose lowering technique was utilized adhering to the principles of ALARA. CONTRAST: Patient received OPTIRAY 320 90ML of IV contrast COMPARISON: No relevant prior studies available. FINDINGS: Lung bases: Unremarkable. No mass. No consolidation. ABDOMEN: Liver: Mild fatty infiltration of the liver. No focal liver mass lesion is seen. Gallbladder and bile ducts: Unremarkable. No calcified stones. No ductal dilation. Pancreas: Unremarkable. No mass. No ductal dilation. Spleen: Unremarkable. No splenomegaly. Adrenals: Chronic calcification is on the right. No mass. Kidneys and ureters: Unremarkable. No solid mass. No hydronephrosis. Stomach and bowel: Unremarkable. No obstruction. No mucosal thickening. PELVIS: Appendix: The appendix is normal. Bowel loops are nondilated. No acute inflammatory changes are seen involving the bowel. Bladder: Unremarkable. No mass. Reproductive: Unremarkable as visualized. ABDOMEN and PELVIS: Intraperitoneal space: Unremarkable. No free air. No significant fluid collection. Bones/joints: Mild degenerative changes in the spine. No fracture or subluxation. Soft tissues: Incidental note is made of a 3 cm fat-containing left inguinal hernia without signs of acute inflammation. Vasculature: Unremarkable. No abdominal aortic aneurysm. Lymph nodes: Right inguinal lymphadenopathy measuring 1.4 cm short axis diameter. This is nonspecific. IMPRESSION: 1. Right inguinal lymphadenopathy measuring 1.4 cm short axis diameter. This is nonspecific. 2. The appendix is normal. Bowel loops are nondilated. No acute inflammatory changes are seen involving the bowel. No acute intraperitoneal process is identified. Electronically signed by: Pietro Bañuelos MD 12/12/23 23:45 PM Code Status & VTE Plan VTE Prophylaxis Plan VTE Prophylaxis will be ordered: Yes (1) Cellulitis Site of cellulitis: unspecified site Qualified Code(s): L03.90 - Cellulitis, unspecified
[2023-12-13 03:19] LABS: Appearance Urine Clear (Clear); Bilirubin Urine Negative (Negative); Blood Urine Negative (Negative); Color Urine Dark Yellow; Glucose Urine UA Negative (Negative); Ketones Urine Trace (Negative); Leukocyte Esterase Urine Negative (Negative); Nitrite Urine Negative (Negative); Protein Urine 1+ (Negative); Specific Gravity Urine > 1.045 (1.000-1.030); Urobilinogen Urine Negative (Negative)
[2023-12-13 03:31] LABS: Bacteria Urine Automated None Seen (Negative); Cast Urine Automated 0-2 /lpf (0-5); Epithelial Cell Urine Auto 0-2 /lpf (0-5); RBC Urine Automated 0-2 /hpf (0-4); WBC Urine Automated 0-5 /hpf (0-5)
[2023-12-13] MEDS ORDERED: ONDANSETRON INJ 2 MG/ML 2 ML VIAL IV PRN (03:50)
[2023-12-13] MEDS: SODIUM CHLORIDE 0.9% 1,000 ML IV SCH (04:33)
[2023-12-13] MEDS: DOXYCYCLINE HYCLATE 100 MG in DEXTROSE 5% MINI-B 100 ML IV SCH (04:33)
[2023-12-13] MEDS: ACETAMINOPHEN 325 MG TAB PO PRN (04:33)
[2023-12-13] MEDS: LEVOTHYROXINE SODIUM 200 MCG TABLET PO SCH (06:07)
[2023-12-13 07:20] LABS: Basophils # (auto) 0.03 K/uL (0.00-0.20); Basophils % (auto) 0.3 %; Hematocrit (blood only) 39.8 % (42.0-52.0); Hemoglobin 13.2 g/dl (14.0-18.0); Immature Granulocytes # (auto) 0.05 K/uL (0.01-0.20); Immature Granulocytes % (auto) 0.4 %; Lymphocytes # (auto) 0.55 K/uL (1.20-3.40); Lymphocytes % (auto) 4.9 %; Mean Corpuscular Hemoglobin 31.1 pg (25.0-34.0); Mean Corpuscular Hgb Conc 33.2 g/dL (32.0-36.0); Mean Corpuscular Volume 93.6 fL (80.0-100.0); Mean Platelet Volume 10.1 fL (9.4-12.4); Monocytes % (auto) 5.3 %; Neutrophils # (auto) 10.06 K/uL (1.40-6.50); Neutrophils % (auto) 89.1 %; Platelet Count 198 K/uL (130-400); RDW Standard Deviation 44.7 fL (36.4-46.3); Red Blood Count 4.25 M/uL (4.70-6.10); White Blood Count 11.29 K/ul (4.8-10.8)
[2023-12-13] MEDS: ENOXAPARIN INJ 40 MG/0.4 ML SYR SQ SCH (07:26)
[2023-12-13 07:30] LABS: BUN Creatinine Ratio 23.7 (10-20); Calcium 8.3 mg/dl (8.6-10.3); Creatinine Clr Calc Pharmacy 167.8 ml/min; Est GFR (Non-African American) 107.9 ml/min; Magnesium 1.7 mg/dl (1.7-2.4); Potassium 3.5 mmol/L (3.5-5.1)
[2023-12-13 07:43] LABS: Thyroid Stimulating Hormone 1.139 uIu/ml (0.300-4.500)
[2023-12-13 08:04] LABS: RBC Morphology Unremarkable
[2023-12-13 08:58] LABS: Lyme Screen Rflx Confirmation Negative (Negative)
[2023-12-13] MEDS ORDERED: VANCOMYCIN CONSULT ACTIVE PRN (10:33)
[2023-12-13] MEDS: VANCOMYCIN HCL 2,500 MG in SODIUM CHLORIDE 0.9% 500 ML IV ONE (11:25)
--- NOTE | 2023-12-13 11:57 | CT Scan Report ---
LUMBAR SPINE CT WITH CONTRAST CLINICAL HISTORY: Lower back pain, fever, rule out abscess. COMPARISON STUDY: Axial images of the lumbar spine were obtained following intravenous injection of 90 cc of Optiray 320 IV. Sagittal and coronal reconstructions were viewed. Automated exposure control was utilized for the study. A dose lowering technique was utilized adhering to the principles of AL FAHAD. FINDINGS: Please note that the abdomen and pelvis CT will be reported separately. Alignment of the jannet mbar spine is anatomic. Vertebral body heights are maintained. There is no lumbar spine fracture. Mil d multilevel facet arthrosis and endplate osteophytosis is present. Sensitivity for detection of epid ural fluid collections is diminished given CT technique but none are identified. No paraspinal absces s is present. Paravertebral soft tissues are unremarkable by CT. No bony erosions are present. IMPRESSION: 1. No acute process within the lumbar spine by CT. No epidural abscess identified although sensitivit y is diminished given CT technique. No paraspinal inflammation or fluid collection. No CT evidence fo r discitis/osteomyelitis. 2. Mild multilevel degenerative changes within the lumbar spine. ACT 112: Negative or not required by law. Electronically signed by: Albert Schuler M.D. 12/13/2023 11:54 AM
--- NOTE | 2023-12-13 12:13 | Pharmacy Report ---
Pharmacy PK ABX Note - Date of Service December 13, 2023 - Assessment and Plan Assessment 48 year old M receiving VANCOMCYIN for treatment of cellulitis. Leukocytosis improving, Procal 1.1, Tmax 38.2 C. Pertinent microbiologic data includes: Blood cultures pending. Tickborne studies also pending, negative Lyme screen. Patient received 1x dose of ceftriaxone in the Ed and 1 dose of doxycycline. Plan Vancomycin * Loading dose: 2500 mg IV x 1 * Maintenance dose: 1250 mg IV every 8 hours * Regimen is predicted to achieve target AUC/RAÚL of 400-600 mg/L.hr * Random level ordered for 12/13 @ 1100 Pharmacy will continue to follow and will adjust dose/frequency as necessary. Thank you. Pharmacy has transitioned to AUC monitoring for vancomycin. AUC/RAÚL is the preferred PK/PD target and is associated with decreased risk of nephrotoxicity compared to traditional trough targets.
--- NOTE | 2023-12-13 14:45 | Hospitalist Progress Note ---
Date of Service December 13, 2023 Assessment & Plan (1) Cellulitis: Plan: 48-year-old male with past medical history significant for postablative hypothyroidism, history of TIA, obesity, history of viral warts, history of headaches , migraines, tobacco use disorder, presents with fever, chills and severe headaches. He was found to have right leg cellulitis Cellulitis right leg Patient presents with fever, chills and severe headaches. Leukocytosis present Pro-Llu elevated Lactate within normal limits Anaplasma, Babesia smear negative Lyme screen negative CT abdomen and pelvis shows right inguinal lymphadenopathy measuring 1.[address] lumbar spine do not show any acute process in the lumbar spine Will place him on vancomycin for cellulitis of right leg Will follow-up on blood cultures Workup for Q fever, typhus sent; will follow up results Hypothyroidism on Synthyroid, continue DVT prophylaxis Lovenox disposition medical floor full code Please note the above document was generated using voice recognition software. It may contain grammatical, syntax or spelling errors. Any formal questions or concerns about the content, text or information contained within the body of this dictation should be directly addressed to the provider for clarification Admission and Anticipated Discharge Date Admission Date: December 13, 2023 Subjective Patient seen and examined at bedside. He reports chills. He also reports low back pain. Hemodynamically stable and afebrile. Review of Systems Review of Systems: All systems reviewed & are unremarkable except as noted in Subjective Physical Exam Physical Exam: Constitutional: Alert oriented x 3; not in distress. Respiratory: normal respiratory effort, lungs clear to auscultation, no wheeze, rales, rhonchi. Normal insp/exp effort, no accessory muscle use Cardiovascular: RRR, no murmur, no edema Vessels: no JVD or carotid bruit Chest: normal inspection of chest Abdomen: normal bowel sounds, soft, nontender, no hepatosplenomegaly Musculoskeletal: no cyanosis or clubbing, extremities motor strength 5/5. No tenderness on back. Skin: Redness on right lower extremity along with swelling. Neurologic: PERRL, EOMI, accommodation nl, no face palsy, no dysarthria CN's II- XI intact bilaterally and moves all extremities Psychiatric: A+Ox3, euthymic affect Results & Data Results & Data Vital Signs (Past 12 Hours) Vital Signs Temp Pulse Pulse Resp BP Pulse Ox O2 Del Method 12/13/23 10:34 37.3 C 12/13/23 07:05 36.8 C 84 16 106/67 97 Room Air 12/13/23 04:37 38.2 C H 12/13/23 03:53 36.8 C 87 16 150/83 H 97 Room Air 12/13/23 02:52 84 96 Room Air (1) Cellulitis Site of cellulitis: unspecified site Qualified Code(s): L03.90 - Cellulitis, unspecified
[2023-12-13] MEDS: VANCOMYCIN HCL 1,250 MG in SODIUM CHLORIDE 0.9% 250 ML IV SCH (19:28)
[2023-12-13] MEDS ORDERED: cefTRIAXone SODIUM 2,000 MG/50 ML BAG IV SCH (20:00)
[2023-12-14 06:49] LABS: Basophils # (auto) 0.04 K/uL (0.00-0.20); Basophils % (auto) 0.5 %; Eosinophils # (auto) 0.04 K/uL (0.00-0.50); Eosinophils % (auto) 0.5 %; Hematocrit (blood only) 40.3 % (42.0-52.0); Hemoglobin 13.3 g/dl (14.0-18.0); Immature Granulocytes # (auto) 0.03 K/uL (0.01-0.20); Immature Granulocytes % (auto) 0.4 %; Lymphocytes # (auto) 1.04 K/uL (1.20-3.40); Lymphocytes % (auto) 13.8 %; Mean Corpuscular Volume 93.9 fL (80.0-100.0); Mean Platelet Volume 10.3 fL (9.4-12.4); Monocytes # (auto) 0.73 K/uL (0.11-0.59); Monocytes % (auto) 9.7 %; Neutrophils # (auto) 5.67 K/uL (1.40-6.50); Neutrophils % (auto) 75.1 %; Platelet Count 182 K/uL (130-400); RDW Coefficient of Variation 12.8 % (11.5-14.5); RDW Standard Deviation 44.4 fL (36.4-46.3); Red Blood Count 4.29 M/uL (4.70-6.10); White Blood Count 7.55 K/ul (4.8-10.8)
[2023-12-14 07:21] LABS: BUN Creatinine Ratio 16.7 (10-20); Calcium 8.4 mg/dl (8.6-10.3); Creatinine Clr Calc Pharmacy 193.2 ml/min; Est GFR (African American) 132.5 ml/min; Est GFR (Non-African American) 114.3 ml/min; Potassium 3.6 mmol/L (3.5-5.1)
[2023-12-14] MEDS: ACYCLOVIR 5% OINT 15 GM TUBE EXT SCH (07:30)
[2023-12-14] MEDS: VANCOMYCIN LEVEL ONE (11:23)
--- NOTE | 2023-12-14 12:58 | Pharmacy Report ---
Pharmacy PK ABX Note - Date of Service December 14, 2023 - Assessment and Plan Assessment 12/13 * Vanc level drawn today, prior to the 4th dose. * Level (8.8 mcg/mL) indicating that current dosing regimen would not achieve target AUC/RAÚL; dose increased. * Blood cx are pending, no growth to date 12/12 48 year old M receiving VANCOMCYIN for treatment of cellulitis. Leukocytosis improving, Procal 1.1, Tmax 38.2 C. Pertinent microbiologic data includes: Blood cultures pending. Tickborne studies also pending, negative Lyme screen. Patient received 1x dose of ceftriaxone in the Ed and 1 dose of doxycycline. Plan Vancomycin * Increase to 1500mg IV q8h * Regimen is predicted to achieve target AUC/RAÚL of 400-600 mg/L.hr * No further levels have been ordered at this time. Will consider checking another level in 1-2 days if pt remains on vancomycin. Pharmacy will continue to follow and will adjust dose/frequency as necessary. Thank you. Pharmacy has transitioned to AUC monitoring for vancomycin. AUC/RAÚL is the preferred PK/PD target and is associated with decreased risk of nephrotoxicity compared to traditional trough targets.
--- NOTE | 2023-12-14 15:07 | Hospitalist Progress Note ---
Date of Service December 14, 2023 Assessment & Plan (1) Cellulitis: Plan: 48-year-old male with past medical history significant for postablative hypothyroidism, history of TIA, obesity, history of viral warts, history of headaches , migraines, tobacco use disorder, presents with fever, chills and severe headaches. He was found to have right leg cellulitis Cellulitis of right leg Patient presents with fever, chills and severe headaches. Leukocytosis present Pro-Lul elevated Lactate within normal limits Anaplasma, Babesia smear negative Lyme screen negative CT abdomen and pelvis shows right inguinal lymphadenopathy measuring 1.[address] lumbar spine do not show any acute process in the lumbar spine Blood culture- no growth in 24 hours Continue on vancomycin for cellulitis of right leg. Plan to change to oral at discharge with Augmentin and doxycycline for total of 7 to 10 days. Workup for Q fever, typhus sent; will follow up results Hypothyroidism on Synthyroid, continue DVT prophylaxis Lovenox disposition medical floor full code Please note the above document was generated using voice recognition software. It may contain grammatical, syntax or spelling errors. Any formal questions or concerns about the content, text or information contained within the body of this dictation should be directly addressed to the provider for clarification Admission and Anticipated Discharge Date Admission Date: December 13, 2023 Subjective Patient seen and examined at bedside He reports that he is feeling much better compared to yesterday Fevers and chills has improved. No significant events overnight Review of Systems Review of Systems: All systems reviewed & are unremarkable except as noted in Subjective Physical Exam Physical Exam: Constitutional: Alert oriented x 3; not in distress. Respiratory: normal respiratory effort, lungs clear to auscultation, no wheeze, rales, rhonchi. Normal insp/exp effort, no accessory muscle use Cardiovascular: RRR, no murmur, no edema Vessels: no JVD or carotid bruit Chest: normal inspection of chest Abdomen: normal bowel sounds, soft, nontender, no hepatosplenomegaly Musculoskeletal: no cyanosis or clubbing, extremities motor strength 5/5. No tenderness on back. Skin: Redness on right lower extremity along with swelling. Neurologic: PERRL, EOMI, accommodation nl, no face palsy, no dysarthria CN's II- XI intact bilaterally and moves all extremities Psychiatric: A+Ox3, euthymic affect Results & Data Results & Data Vital Signs (Past 12 Hours) Vital Signs Temp Pulse Resp BP BP Pulse Ox O2 Del Method 12/14/23 14:59 36.7 C 63 16 116/74 97 Room Air 12/14/23 07:00 36.6 C 61 16 103/64 97 Room Air (1) Cellulitis Site of cellulitis: unspecified site Qualified Code(s): L03.90 - Cellulitis, unspecified
[2023-12-14] MEDS: VANCOMYCIN HCL 1,500 MG in SODIUM CHLORIDE 0.9% 500 ML IV SCH (21:00)
[2023-12-15 07:00] LABS: Basophils # (auto) 0.04 K/uL (0.00-0.20); Basophils % (auto) 0.8 %; Eosinophils % (auto) 1.9 %; Hematocrit (blood only) 39.9 % (42.0-52.0); Hemoglobin 13.2 g/dl (14.0-18.0); Immature Granulocytes # (auto) 0.03 K/uL (0.01-0.20); Immature Granulocytes % (auto) 0.6 %; Lymphocytes # (auto) 1.13 K/uL (1.20-3.40); Lymphocytes % (auto) 21.8 %; Mean Corpuscular Hgb Conc 33.1 g/dL (32.0-36.0); Mean Corpuscular Volume 93.7 fL (80.0-100.0); Mean Platelet Volume 10.3 fL (9.4-12.4); Monocytes # (auto) 0.69 K/uL (0.11-0.59); Monocytes % (auto) 13.3 %; Neutrophils # (auto) 3.19 K/uL (1.40-6.50); Neutrophils % (auto) 61.6 %; Platelet Count 190 K/uL (130-400); RDW Coefficient of Variation 12.8 % (11.5-14.5); Red Blood Count 4.26 M/uL (4.70-6.10); White Blood Count 5.18 K/ul (4.8-10.8)
[2023-12-15 07:11] LABS: BUN Creatinine Ratio 15.9 (10-20); Calcium 8.4 mg/dl (8.6-10.3); Creatinine Clr Calc Pharmacy 202.4 ml/min; Est GFR (African American) 135.1 ml/min; Est GFR (Non-African American) 116.5 ml/min
--- NOTE | 2023-12-15 15:11 | Hospitalist Progress Note ---
Date of Service December 15, 2023 Assessment & Plan (1) Cellulitis: Plan: 48-year-old male with past medical history significant for postablative hypothyroidism, history of TIA, obesity, history of viral warts, history of headaches , migraines, tobacco use disorder, presents with fever, chills and severe headaches. He was found to have right leg cellulitis Cellulitis of right leg Patient presents with fever, chills and severe headaches. Leukocytosis present and this has resolved Pro-Lul elevated Lactate within normal limits Anaplasma, Babesia smear negative Lyme screen negative CT abdomen and pelvis shows right inguinal lymphadenopathy measuring 1.[address] lumbar spine do not show any acute process in the lumbar spine Blood culture- no growth in 24 hours Continue on vancomycin for cellulitis of right leg. Plan to change to oral at discharge with Augmentin and doxycycline for total of 7 to 10 days. Workup for Q fever, typhus sent; will follow up results obtain MRI of RLE to r/o osteomyelitis with and w/o contrast Hypothyroidism on Synthyroid, continue DVT prophylaxis Lovenox disposition medical floor, not yet medically stable for d/c, further imaging to r/o osteo, likely d/c in next 1-2 days on oral antibiotic regimen full code A total of 45 minutes was spent coordinating, documenting, and providing care for this patient excluding time spent in the performance of separately billed services. This included personally viewing all current laboratories and imaging studies, medication reconciliation, outpatient chart review, and discussion with specialists. Admission and Anticipated Discharge Date Admission Date: December 13, 2023 Supervising Physician Co-Signing Physician Notes Pt was seen and examined by myself, Lo Boggs MD on the day of service. Care was coordinated with Kimberly Harmon PA-C. Pt anxious for discharge. However notes that he has noticed increasing erythema to RLE. Leukocytosis improved and states that presenting systemic symptoms of fevers, chills have resolved, headache persistent though improved. Pt with hardware in his right knee. On exam, RLE swollen when compared to LLE, noted erythema over anterior salazar. Recommend MRI RLE to further evaluate and rule out osteomyelitis which would blade changer. Pt agreeable to the plan and staying overnight if necessary. Otherwise as above. I spent a total [id number] coordinating, documenting, and providing care for this patient excluding time spent in the performance of separately billed services Subjective Pt was seen and examined in room 350-2. F/U RLE Cellulitis. He feels sx are improving. He is hopeful to go home today. He still has some pain. He denies f/c/s, chest pain, sob, n/v/d, abd pain. He feels erythema has spread up leg. Review of Systems Review of Systems: All systems reviewed & are unremarkable except as noted in HPI & below Physical Exam Physical Exam: Gen: WD/WN, M, NAD, A&O x3 HEENT: Normocephalic, atraumatic, conjunctivae moist, sclerae anicteric, mucous membranes moist. Lung: Clear to Auscultation bilaterally, no wheezes/rales/rhonchi Heart: Regular rate, regular rhythm, no murmurs, rubs, or gallops Abdomen: Soft, NT, ND +BS x 4 Extremities: RLE pretibial erythema with chronic venous stasis changes noted also, warm to touch Skin: Warm, no rash, negative turgor. Results & Data Results & Data Vital Signs (Past 12 Hours) Vital Signs Temp Pulse Resp BP Pulse Ox O2 Del Method 12/15/23 12:09 36.5 C 71 13 150/101 H 97 Room Air 12/15/23 07:28 36.7 C 73 13 119/79 96 Room Air Laboratory Results Short CBC 12/15/23 Range/Units 06:07 WBC 5.18 (4.8-10.8) K/ul Hgb 13.2 L (14.0-18.0) g/dl Hct 39.9 L (42.0-52.0) % Plt Count 190 (130-400) K/uL BMP 12/15/23 06:07 Sodium 140 Potassium 4.0 Chloride 107 Carbon Dioxide 29 BUN 10 Creatinine 0.63 Glucose 96 Calcium 8.4 L Medications Administered Current Inpatient Medications Acetaminophen (Acetaminophen 325 Mg Tab) 650 mg PO Q4H PRN PRN Reason: pain/fever Stop: 01/12/24 03:49 Last Admin: 12/14/23 20:23 Dose: 650 mg Acyclovir (Acyclovir 5% Oint 15 Gm Tube) 1 appln EXT QID JOSE J Stop: 12/18/23 08:59 Last Admin: 12/15/23 13:26 Dose: 1 appln Enoxaparin Sodium (Enoxaparin Inj 40 Mg/0.4 Ml Syr) 40 mg SQ Q24H [facility] Stop: 01/12/24 08:59 Last Admin: 12/15/23 07:32 Dose: 40 mg Vancomycin HCl 1,500 mg/ (Sodium Chloride) 530 mls @ 200 mls/hr IV Q8H [facility] Stop: 12/20/23 21:59 Last Admin: 12/15/23 13:30 Dose: 200 mls/hr Levothyroxine Sodium (Levothyroxine Sodium 200 Mcg Tablet) [facility] Stop: 01/12/24 06:29 Last Admin: 12/15/23 05:31 Dose: 200 mcg Miscellaneous Information (Vancomycin Consult Active) 1 each N/A UD PRN PRN Reason: Consult Stop: 01/12/24 10:32 Ondansetron HCl (Ondansetron Inj 2 Mg/Ml 2 Ml Vial) 4 mg IV Q6H PRN PRN Reason: Nausea Stop: 01/12/24 03:49 (1) Cellulitis Site of cellulitis: unspecified site Qualified Code(s): L03.90 - Cellulitis, unspecified
[2023-12-15] MEDS: GADOBUTROL 65ML VIAL IV ONE (23:12)
[2023-12-16] MEDS: VANCOMYCIN LEVEL ONE (05:38)
--- NOTE | 2023-12-16 06:23 | Magnetic Resonance Report ---
Exam(s): MRI EXTREMITY W/WO Contrast IV Amt: 12.6cc gadavist EXAM: MR Right Lower Extremity Without and With Intravenous Contrast, Tibia and Fibula CLINICAL HISTORY: Reason for exam: cellulitis r/o osteomyelitis. TECHNIQUE: Multiplanar magnetic resonance images of the right tibia and fibula without and with intravenous contrast. CONTRAST: Patient received 12.6cc gadavist of IV contrast COMPARISON: No relevant prior studies available. FINDINGS: Bones/joints: Unremarkable. No acute fracture. No dislocation. Soft tissues: Dear extensive subcutaneous interstitial edema identified most prominently in the anterior aspect of the distal right leg. No evidence of myositis. IMPRESSION: MR findings are suggestive of cellulitis in the right leg No evidence of osteomyelitis Electronically signed by: Dakota Sanders MD 12/16/23 06:22 AM
[2023-12-16 10:28] LABS: Creatinine Clr Calc Pharmacy 212.5 ml/min; Est GFR (African American) 137.8 ml/min; Est GFR (Non-African American) 118.9 ml/min
--- NOTE | 2023-12-16 10:47 | Pharmacy Report ---
Pharmacy PK ABX Note - Date of Service December 16, 2023 - Assessment and Plan Assessment 12/15: * Continues on vancomycin monotherapy. Day #4. Blood cultures NGTD. Renal function stable. 12/13 * Vanc level drawn today, prior to the 4th dose. * Level (8.8 mcg/mL) indicating that current dosing regimen would not achieve target AUC/RAÚL; dose increased. * Blood cx are pending, no growth to date 12/12 48 year old M receiving VANCOMCYIN for treatment of cellulitis. Leukocytosis improving, Procal 1.1, Tmax 38.2 C. Pertinent microbiologic data includes: Blood cultures pending. Tickborne studies also pending, negative Lyme screen. Patient received 1x dose of ceftriaxone in the Ed and 1 dose of doxycycline. Plan Vancomycin * Current regimen: vancomycin 1500mg IV q8h * Trough level this AM, 13mcg/mL (~8h level)- predicted to achieve ssAUC 482mg/L.hr- therapeutic. * Repeat level in ~48h if vancomycin continued. Pharmacy will continue to follow and will adjust dose/frequency as necessary. Thank you. Pharmacy has transitioned to AUC monitoring for vancomycin. AUC/RAÚL is the preferred PK/PD target and is associated with decreased risk of nephrotoxicity compared to traditional trough targets.
--- NOTE | 2023-12-16 14:10 | Discharge Summary ---
Discharge Summary Date of Service December 16, 2023 Principal Dx & Hospital Course #1 = Principal Diagnosis (1) Cellulitis: Plan 48-year-old male with past medical history significant for postablative hypothyroidism, history of TIA, obesity, history of viral warts, history of headaches , migraines, tobacco use disorder, presents with fever, chills and severe headaches. He was found to have right leg cellulitis. Cellulitis of right leg Patient presents with fever, chills and severe headaches. Leukocytosis present and this has resolved Pro-Lul elevated Lactate within normal limits Anaplasma, Babesia smear negative Workup for Q fever, typhus sent; results pending Lyme screen negative MRI RLE noting cellulitis, no osteomyelitis CT abdomen and pelvis shows right inguinal lymphadenopathy measuring 1.[address] lumbar spine did not show any acute process in the lumbar spine Blood culture- no growth to date Treated with IV vancomycin for cellulitis of right leg Persistent erythema, discharged with 11 more days of Augmentin and doxycycline for total of 14 days of treatment. Leukocytosis and presenting symptoms resolved on discharge Close PCP followup after discharge Hypothyroidism on Synthroid, continue Notes For Next Care Provider Medication Changes From Visit Complete 14 total days of treatment with: Augmentin 875mg BID x 11 more days Doxycycline 100mg BID x 11 more days Daily probiotic Admission HPI Per Admitting Provider 42-year-old male with past medical history significant for postablative hypothyroidism, history of TIA, obesity, history of viral warts, history of headaches , migraines, tobacco use disorder, presents with nausea, vomiting and severe headaches. Patient states today when he was in the shower he had several episodes of nausea and vomiting. The nausea has resolved. But had a lot of headaches. feeling hot and cold. No cough. No runny nose. No sore throat. Currently no earaches. Did not eat much. No diarrhea. Did not micturate much.. No abdominal pain. Denies any tick bites. Hemodynamics are okay. past medical history. As mentioned above past surgical history. Nasal surgery. Surgery x 2 to right hand. 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 Repair of new ligament. Shoulder surgery. Social history. Smoked 1 pack a day for 5 years. Quit in 2022. Alcohol Couple of beers on the weekends. no drug use. Family history. Father had heart disorder. Mother had thyroid disorder. Admission Exam Per Admitting Provider General- Not in distress Head- atraumatic Eyes- PERRL. ENT- oropharynx clear Neck- supple, no JVD. Lungs- clear to auscultation no wheezing or crackles. Heart- regular rhythm; no murmur, no gallop. Abdomen- normal bowel sounds, soft, nontender, no distension. Extremities- no pretibial edema, erythematous rash seen on right lower extremity from ankle to salazar region. Neuro- alert, oriented; PERRL, no facial palsy; no dysarthria; moves extremities. Skin- erythematous rash seen on right lower extremity from ankle to salazar region. Discharge Exam General: Alert, oriented. No acute distress Skin: RLE with erythema to the anterior salazar Psych: Appropriate mood and affect Neuro: No gross deficits HEENT: NC/AT CV: RRR, Normal s1, s2. No murmurs appreciated Resp: Breath sounds clear bilaterally, no increased effort of breathing. Abdomen:Soft, nontender, nondistended. Extremities: edema in RLE, erythema to the anterior salazar Updated Medication List Medication Instructions Recorded Confirmed Type acetaminophen 500 mg capsule 1,000 mg PO DIRECTED PRN Pain 12/12/23 12/12/23 History levothyroxine 200 mcg tablet 200 mcg PO DAILYBB 12/12/23 12/12/23 History (Synthroid) sildenafil 100 mg tablet 100 mg PO DIRECTED PRN Sexual 12/12/23 12/12/23 History Activity Saccharomyces boulardii 250 mg 250 mg PO DAILY #30 caps 12/16/23 Rx capsule (Daily Probiotic (S. boulardii)) amoxicillin 875 mg-potassium 1 tab PO BID #22 tabs 12/16/23 Rx clavulanate 125 mg tablet doxycycline hyclate 100 mg tablet 100 mg PO BID #22 tabs 12/16/23 Rx Hospital Stay Data Consultations 12/12/23 21:49 ED Decision to Admit Stat Diagnostic Imagining Performed 12/12/23 19:28 CT abd pelvis IV con only Stat 12/13/23 10:23 CT lumbar spine w con Urgent 12/15/23 15:17 MR lower leg RT wo/w con Routine Abdomen/Pelvis CT 12/12/23 19:28 Exam(s): CT ABDOMEN + PELVIS With Contrast IV Amt: OPTIRAY 320 90ML EXAM: CT Abdomen and Pelvis With Intravenous Contrast CLINICAL HISTORY: Reason for exam: abd pain n/v. TECHNIQUE: Axial computed tomography images of the abdomen and pelvis with intravenous contrast. CTDI is 28.14 mGy and DLP is 1570.18 mGy-cm. Automated exposure control was utilized for the study. A dose lowering technique was utilized adhering to the principles of ALARA. CONTRAST: Patient received OPTIRAY 320 90ML of IV contrast COMPARISON: No relevant prior studies available. FINDINGS: Lung bases: Unremarkable. No mass. No consolidation. ABDOMEN: Liver: Mild fatty infiltration of the liver. No focal liver mass lesion is seen. Gallbladder and bile ducts: Unremarkable. No calcified stones. No ductal dilation. Pancreas: Unremarkable. No mass. No ductal dilation. Spleen: Unremarkable. No splenomegaly. Adrenals: Chronic calcification is on the right. No mass. Kidneys and ureters: Unremarkable. No solid mass. No hydronephrosis. Stomach and bowel: Unremarkable. No obstruction. No mucosal thickening. PELVIS: Appendix: The appendix is normal. Bowel loops are nondilated. No acute inflammatory changes are seen involving the bowel. Bladder: Unremarkable. No mass. Reproductive: Unremarkable as visualized. ABDOMEN and PELVIS: Intraperitoneal space: Unremarkable. No free air. No significant fluid collection. Bones/joints: Mild degenerative changes in the spine. No fracture or subluxation. Soft tissues: Incidental note is made of a 3 cm fat-containing left inguinal hernia without signs of acute inflammation. Vasculature: Unremarkable. No abdominal aortic aneurysm. Lymph nodes: Right inguinal lymphadenopathy measuring 1.4 cm short axis diameter. This is nonspecific. IMPRESSION: 1. Right inguinal lymphadenopathy measuring 1.4 cm short axis diameter. This is nonspecific. 2. The appendix is normal. Bowel loops are nondilated. No acute inflammatory changes are seen involving the bowel. No acute intraperitoneal process is identified. Electronically signed by: Pietro Bañuelos MD 12/12/23 23:[address] 12/13/23 10:[address] WITH CONTRAST CLINICAL HISTORY: Lower back pain, fever, rule out abscess. COMPARISON STUDY: Axial images of the lumbar spine were obtained following intravenous injection of 90 cc of Optiray 320 IV. Sagittal and coronal reconstructions were viewed. Automated exposure control was utilized for the study. A dose lowering technique was utilized adhering to the principles of ALARA. FINDINGS: Please note that the abdomen and pelvis CT will be reported separately. Alignment of the lumbar spine is anatomic. Vertebral body heights are maintained. There is no lumbar spine fracture. Mild multilevel facet arthrosis and endplate osteophytosis is present. Sensitivity for detection of epidural fluid collections is diminished given CT technique but none are identified. No paraspinal abscess is present. Paravertebral soft tissues are unremarkable by CT. No bony erosions are present. IMPRESSION: 1. No acute process within the lumbar spine by CT. No epidural abscess identif ied although sensitivity is diminished given CT technique. No paraspinal inflammation or fluid collection. No CT evidence for discitis/osteomyelitis. 2. Mild multilevel degenerative changes within the lumbar spine. ACT 112: Negative or not required by law. Electronically signed by: Albert Schuler M.D. 12/13/2023 11:54 AM Lower Extremity MRI 12/15/23 15:17 Exam(s): MRI EXTREMITY W/WO Contrast IV Amt: 12.6cc gadavist EXAM: MR Right Lower Extremity Without and With Intravenous Contrast, Tibia and Fibula CLINICAL HISTORY: Reason for exam: cellulitis r/o osteomyelitis. TECHNIQUE: Multiplanar magnetic resonance images of the right tibia and fibula without and with intravenous contrast. CONTRAST: Patient received 12.6cc gadavist of IV contrast COMPARISON: No relevant prior studies available. FINDINGS: Bones/joints: Unremarkable. No acute fracture. No dislocation. Soft tissues: Dear extensive subcutaneous interstitial edema identified most prominently in the anterior aspect of the distal right leg. No evidence of myositis. IMPRESSION: MR findings are suggestive of cellulitis in the right leg No evidence of osteomyelitis Electronically signed by: Dakota Sanders MD 12/16/23 06:22 AM Pending Results Patient Have Any Pending Studies at Discharge: Yes Discharge Instructions Given to Patient (Per Discharging Provider) Jigar, You are being discharged home with oral antibiotics for treatment of your right lower extremity cellulitis. Please take as prescribed. Due to the severity of the infection we recommend treatment for a total of 14 days. Please take both antibiotics with a probiotic to help prevent sideeffects. Please keep close follow up with your primary care provider after discharge. Please do not hesitate to come back to the emergency room if your symptoms worsen or return. It was a pleasure taking care of you while you were here. Total Time Total Time Spent Total Time Spent (In Minutes): 75
[2023-12-17 17:07] LABS: Ehrlichia chaff DNA Bld Negative (Negative)
[2023-12-18 17:27] LABS: Babesia microti DNA Not Detected (Not Detected); Q Fever IgG, Phase I NEGATIVE; Q Fever Phase I IgM Antibody NEGATIVE; Q Fever Phase II IgG Antibody NEGATIVE; Q Fever Phase II IgM Antibody NEGATIVE; R. typhi IgG Ab NOT DETECTED; R. typhi IgM Ab NOT DETECTED; RMSF IgG Ab NOT DETECTED; RMSF IgM Ab NOT DETECTED
== END 2023-12-16 15:34 | disposition home or self-care (01) ==
LOC: ED 19:10 → INTOOBSV 12-13 02:19 → SUATTDRO 12-13 02:19 → 3W 12-13 02:19